=== PATIENT | male | born 1955 | race Caucasian/White ===

== ENCOUNTER 2020-12-07 11:22 | Observation (INO) | payer OTHER, SELFPAY ==
[2020-12-07] VITALS (11 sets, daily range): BP systolic 116–166; BP diastolic 59–89; PULSE 65–85; RESP 12–18; TEMP 36.2–37; O2SAT 95–100; BMI 29.4
--- NOTE | ~2020-12-07 | XR_ITS ---
EXAMINATION: XR retrograde pyelo w/stent RT DATE: 12/07/2020 18:26 INDICATION: Right flank pain TECHNIQUE: 5 fluoroscopic images of the abdomen and pelvis were obtained during procedure performed palmira Phillip. Radiologist was not present for the imaging or procedure. The amount of fluoroscopy ti me used during this procedure was 0.3 minutes. COMPARISON: None. FINDINGS: Electronics Computer Mechanic images demonstrate a large amount of stool in the proximal colon. The reported right ureteral s tone is unable to be definitively identified. Subsequent images demonstrate retrograde contrast injec tions into the right ureter. Subsequent images demonstrate placement of a right internal ureteral sarthak nt with loops formed in the bladder and right renal pelvis. IMPRESSION: 1. Fluoroscopy utilized during reported right ureteral stone extraction with subsequent placement of a right internal ureteral stent which is in expected position. See procedure note for further detail. Reviewed, dictated and finalized at location A. IMPRESSION: 1. Fluoroscopy utilized during reported right ureteral stone extraction with paige bsequent placement of a right internal ureteral stent which is in expected posi tion. See procedure note for further detail.
--- NOTE | 2020-12-07 11:33 | ADMGEN ---
This patient, Yamil Schneider, was admitted to [facility] Surg Room 327-01. Patient/family oriented to hospital policies and general routines including ID bracelet, bed and alarms, visiting hours, pain management, procedures, bathroom and other care routines, personal items, smoking policy, room service/diet, and visiting hours. Information on how to activate the Rapid Response Team has been discussed. Patient/Family are encouraged to report perceived risks to care and to ask questions if they do not understand what they are told or what they should do.
--- NOTE | 2020-12-07 13:10 | PM.IMHP ---
H&P: HPI History of Present Illness Date/Time: 12/07/20 13:10 This is a 64-year-old gentleman with history of kidney stones. He passed a stone a stone about 20 years ago. He had acute onset right flank pain on Monday. This to come to the emergency room where he was diagnosed with a 3 mm distal right ureteral stone. He was sent home on pain medication as well as Keflex. He failed a conservative trial of stone passage. He re-presented to the ER this morning. Again a CT scan shows a 3 mm right distal ureteral stone. He was transferred to [place] for further evaluation and management. He denies any blood in the urine. Denies any dysuria. He endorses nausea without vomiting. Chief Complaint: Right ureteral stone Review of Systems Review of Systems: All systems reviewed & are unremarkable except as noted in HPI and below PMFSH Past Medical History Medical History (Updated 12/07/20 @ 13:17 by Pawan Phillip MD) Essential (primary) hypertension History of asthma History of pulmonary embolism PE (pulmonary thromboembolism) Surgical History Surgical History (Updated 12/07/20 @ 13:12 by Pawan Phillip MD) History of Rio fundoplication Family History Family History (Updated 05/17/16 @ 10:01 by DOCTOR UNKNOWN) Father Hypertension Family history of cardiovascular disease Sibling Hypertension Family history of diabetes mellitus in first degree relative Diabetes mellitus Grandparent Carcinoma of colon Family history of malignant neoplasm Mother Family history of elevated blood lipids Family history of chronic obstructive pulmonary disease Other Family history of allergic disorder Social History Social History Smoking status: Former smoker Tobacco type: cigars Second hand tobacco smoke exposure: No Smoking end date: 07/03/13 Alcohol intake: current Drinks per week: 1 Substance use: never Spiritual care concerns: No Meds Home Medications and Allergies Home Medications Medication Instructions Recorded Confirmed Type albuterol sulfate 90 mcg/actuation See Rx Instructions .ROUTE 06/08/20 12/07/20 Rx aerosol inhaler .COMPLEX 90 Days #54 g finasteride 5 mg tablet 5 mg PO DAILY 90 Days #90 tablet 06/08/20 12/07/20 Rx montelukast 10 mg tablet 10 mg PO QPM 90 Days #90 tablet 06/08/20 12/07/20 Rx omeprazole 40 mg capsule,delayed 40 mg PO BID 90 Days #180 cap 06/08/20 12/07/20 Rx release ondansetron 4 mg disintegrating 4 mg TRANSLINGUAL TID PRN #360 06/08/20 12/07/20 Rx tablet tablet quinapril 10 mg tablet 10 mg PO DAILY 90 Days #90 tablet 06/08/20 12/07/20 Rx tamsulosin 0.4 mg capsule 0.4 mg PO DAILY 90 Days #90 cap 06/08/20 12/07/20 Rx ezetimibe 10 mg tablet 10 mg PO DAILY 90 Days #90 tablet 09/30/20 12/07/20 Rx budesonide-formoterol 2 puff INHALATION BID PRN 12/07/20 12/07/20 History Allergies Allergy/AdvReac Type Severity Reaction Status Date / Time meperidine Allergy Unknown Anaphylactic Verified 09/30/20 11:32 Shock Einlkat-Kqg-Xql Reductase AdvReac Intermediate Muscle Pain Verified 12/07/20 11:49 Inhibitor codeine AdvReac Unknown Itching Verified 09/30/20 11:32 Exam Const: General: cooperative and healthy appearing HENMT: Head: normal to inspection General nose exam: Normal external nose present Face and sinus: normal facial exam Mouth: Yes Normal oral and palatal mucosa present Eyes: General: appearance normal, both eyes and all related structures Neck: Neck: normal visual inspection Resp: Effort & Inspection: normal respiratory effort, able to speak in complete sentences and no grunting GI: Inspection: normal to inspection Skin: General skin exam: normal color and no rashes or lesions noted Neuro: General: patient oriented x3 Extrem: General: normal to inspection Psych: Appearance: grossly normal H&P: Results Labs Labs: I have a CT scan report which shows moderate right hydronephrosis with a stone in the right d
--- NOTE | 2020-12-07 14:05 | WPDANESEPPF ---
Anes - Initial Pre Proc Eval Procedure: Operation Date: 12/07/20 16:00 Proposed Procedures p Cystoscopy,Right Ureteroscopy,Right Retrograde Pyelogram,Right Stone Extraction,Possible Stent Placement - Pawan Phillip MD Date/Time: 12/07/20 14:05 Surgeon: Pawan Phillip MD Pre Op Diagnosis: Kidney stones Patient Data Age: 64 Gender: M Height: 1.78 m Weight: 93 kg Allergies Allergy/AdvReac Type Severity Reaction Status Date / Time meperidine Allergy Unknown Anaphylactic Verified 09/30/20 11:32 Shock Hfezvop-Fob-Uzx Reductase AdvReac Intermediate Muscle Pain Verified 12/07/20 11:49 Inhibitor codeine AdvReac Unknown Itching Verified 09/30/20 11:32 Home Medications Medication Instructions Recorded Confirmed Type albuterol sulfate 90 mcg/actuation See Rx Instructions .ROUTE 06/08/20 12/07/20 Rx aerosol inhaler .COMPLEX 90 Days #54 g finasteride 5 mg tablet 5 mg PO DAILY 90 Days #90 tablet 06/08/20 12/07/20 Rx montelukast 10 mg tablet 10 mg PO QPM 90 Days #90 tablet 06/08/20 12/07/20 Rx omeprazole 40 mg capsule,delayed 40 mg PO BID 90 Days #180 cap 06/08/20 12/07/20 Rx release ondansetron 4 mg disintegrating 4 mg TRANSLINGUAL TID PRN #360 06/08/20 12/07/20 Rx tablet tablet quinapril 10 mg tablet 10 mg PO DAILY 90 Days #90 tablet 06/08/20 12/07/20 Rx tamsulosin 0.4 mg capsule 0.4 mg PO DAILY 90 Days #90 cap 06/08/20 12/07/20 Rx ezetimibe 10 mg tablet 10 mg PO DAILY 90 Days #90 tablet 09/30/20 12/07/20 Rx budesonide-formoterol 2 puff INHALATION BID PRN 12/07/20 12/07/20 History cephalexin 500 mg PO BID 12/07/20 12/07/20 History Patient hx anesthesia problems: none Family hx anesthesia problems: none PMFSH Past Medical History Medical History (Updated 12/07/20 @ 14:23 by Nimco Wan NP) 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 Saddle PE Surgical History Surgical History (Updated 12/07/20 @ 14:24 by Nimco Wan NP) H/O hernia repair Bilateral H/O medial meniscus repair of left knee H/O medial meniscus repair of right knee H/O shoulder surgery Left clavicle surgery. And right rotator cuff repair History of Rio fundoplication Secondary to Milton's esophagus History of tonsillectomy S/P medial meniscal repair Family History Family History Father Hypertension Family history of cardiovascular disease Sibling Hypertension Family history of diabetes mellitus in first degree relative Diabetes mellitus Grandparent Carcinoma of colon Family history of malignant neoplasm Mother Family history of elevated blood lipids Family history of chronic obstructive pulmonary disease Other Family history of allergic disorder Social History Social History (Updated 12/07/20 @ 14:25 by Nimco Wan NP) Social History: 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 He is and his is the durable power state attorney for healthcare. The patient has 1 son. The patient used to smoke cigars but quit many years ago. No alcohol marijuana or illicit drugs. The patient desires to be a full code. Smoking status: Former smoker Tobacco type: cigars Second hand tobacco smoke exposure: No Smoking end date: 07/03/13 Alcohol intake: current Drinks per week: 1
--- NOTE | 2020-12-07 14:07 | PM.IMHP ---
H&P: HPI History of Present Illness Date/Time: 12/07/20 14:07 this is 64-year-old male patient who lives with his . The patient has a past medical history having kidney stones that he passed on his own approximately 20-25 years ago. He has not had any problems with kidney stones since. The patient stated that he was camping over the weekend and developed some right flank pain and he went to [facility]. Who is told that he had a kidney stone and and he was given the choice of staying or leading. The patient stated that he was given Toradol at that hospital felt well enough to leave. Looks like the patient may have been given Keflex upon discharge. The patient was able to drive his RV home and he may at home I am did well through the night but then this morning he woke up with some right flank pain. The patient decided to go to [facility] in [place] as it is only a few minutes from his home. Patient also had some nausea and some dry heaves but no vomiting. The patient had a CT of his abdomen at [facility] which was read as moderate right hydronephrosis due to persistent stone in the right ureter measuring 3 mm. There is moderate colonic diverticulosis but no diverticulitis. Mild distal esophageal wall thickening with fluid in the esophagus. Evidence of previous fundoplication. The patient was given a small amount of Toradol, morphine, Dilaudid, and IV fluids at [facility] in [place]. Dr. Burns called report to Dr. Kramer today to transfer the patient to [facility]. Dr. Phillip had been consulted and has already seen the patient. The plan is for the patient to possibly have a cystoscopy in a placed at [facility] today. The patient appears to be comfortable at this time. Urine was negative except for 3+ blood in his urine. A culture was not indicated at that time. Creatinine was listed as 1.86 at [facility]. H&H is 13.1 and 38.1 at [facility]. The patient is being admitted to observation status on the date of service of 12/07/2020. Chief Complaint: Right flank pain Review of Systems Review of Systems: All systems reviewed & are unremarkable except as noted in HPI and below Constitutional: Constitutional: Reports as per HPI and Reports no additional constitutional complaints Eyes: Eyes: Reports as per HPI and Reports no additional eye complaints ENT: Reports system reviewed and no additional complaints, except as documented and Reports Normal hearing present Cardiovascular: Cardiovascular: Reports no additional cardiovascular complaints Respiratory: Respiratory: Reports no additional respiratory complaints and Reports no additional respiratory complaints Gastrointestinal: Gastrointestinal: Reports as per HPI and Reports no additional gastrointestinal complaints Musculoskeletal: Musculoskeletal: Reports no additional musculoskeletal complaints Integumentary/Breasts: Skin/Breast: Reports system reviewed and no additional complaints, except as docu and Reports as per HPI Neurologic: Reports system reviewed and no additional complaints, except as documented, Reports as per HPI and Reports Normal hearing present Psychiatric: Psychiatric: Reports no additional psychiatric complaints and Reports as per HPI Endocrine: Endocrine: Reports no additional endocrine complaints Hematologic/Lymphatic: Hematologic/Lymphatic: Reports no additional hematologic/lymphatic complaints Allergic/Immunologic: Allergic/Immunologic: Reports no additional allergic/immunologic complaints [facility] Past Medical History Medical History (Updated 12/07/20 @ 14:23 by Nimco Wan NP) Arthritis of right shoulder region Milton's esophagus with dysplasia, unspecified Benign prostatic hyperplasia with urinary retention Calculus of distal ureter Chronic allergic rhinitis Complex regional pain syndrome type II of right lower limb Essential (primary) hypertension History of asthma History of pulmonary emboli
[2020-12-07 14:45] LABS: Alanine Aminotransferase 17 U/L (4-50); Albumin Level 3.9 g/dL (3.5-5.1); Alkaline Phosphatase 57 U/L (38-126); Anion Gap 10 mmol/L (8-16); Aspartate Amino Transferase 23 U/L (17-59); Bilirubin,Total 1.4 mg/dL (0.2-1.3); Blood Urea Nitrogen 21 mg/dL (9-20); Calcium 9.2 mg/dL (8.4-10.2); Carbon Dioxide 25 mmol/L (22-30); Chloride 107 mmol/L (98-107); Estimated CRCL calculation 38 ml/min; Estimated Glomerular Filt Rate 38; Glucose 94 mg/dL (75-110); Magnesium 1.8 mg/dL (1.6-2.3); Potassium 4.4 mmol/L (3.4-5.0); Sodium 142 mmol/L (137-145)
[2020-12-07] MEDS: LACTATED RINGERS 1,000 ML 30 ML IV CONT (15:47)
--- NOTE | 2020-12-07 16:12 | ECG_ITS ---
Measurements Intervals Smoot Rate: 65 P: 58 HI: 173 QRS: 4 QRSD: 107 T: 33 QT: 363 QTc: 378 Interpretive Statements SINUS RHYTHM INCOMPLETE RIGHT BUNDLE BRANCH BLOCK BASELINE ARTIFACT- V4 BORDERLINE ECG Electronically Signed On 12-07-2020 21:09:15 CDT by Pedro Pablo Dai D.O.
--- NOTE | 2020-12-07 17:41 | WPDHPUPDATE1 ---
History and Physical Update Update Date/Time: 12/07/20 17:41 History and Physical has been reviewed, including an updated exam of the patient. There are NO changes in the patient's condition. Risks, benefits, and alternatives have been discussed and questions answered. Patient agrees to proceed with procedure.
[2020-12-07] MEDS: LIDOCAINE HCL 2% GEL UROJET 10 ML PKG MUCOUS MEM (17:53)
[2020-12-07] MEDS: ceFAZolin SODIUM 1 GM VIAL 2 GM IV PUSH (18:04)
--- NOTE | 2020-12-07 18:22 | W.PM.PROC2 ---
Procedure Note - Detailed Date of Procedure 12/07/20 Pre-op Diagnosis Right ureteral stone Post-op Diagnosis same (Right ureteral stone, bladder stones) Procedure Performed Cystoscopy, irrigation of bladder stones, right ureteroscopy, stone extraction, stent placement Surgeon Pawan Phillip MD Anesthesia general Indications Right distal ureteral stone that has failed a trial of conservative stone passage Findings Distal ureteral stone Description of Procedure He has correctly identified. Informed consent obtained. From the operating room. He was given general anesthesia. He is prepped and draped in a sterile fashion. Time-out performed. He was given appropriate perioperative antibiotics. Cystoscopy revealed a very enlarged prostate. He had moderate trabeculations. He had many small bladder stones in his bladder. These were irrigated out. I located the right ureteral orifice. I placed a guidewire to the kidney. I dilated the ureter with the 810 dilator. I performed ureteroscopy. It was somewhat difficult to negotiate over his prostate. I created a small false passage in the distal ureter. I found ureter proper and is able to get up to the ureteral stone. I used the basket to extract the ureteral stone intact. I then did a retrograde pyelogram. There is no extravasation from the ureter. There was good filling of the renal pelvis. I placed a 4.8 variable length stent. Proximal coil the kidney. Distal coil the bladder. The bladder was drained. He was awakened transferred to PACU in stable condition. Implants For perineal extent Estimated Blood Loss 5 Drains No Packing No Pathology yes (Ureteral stone) Complications No immediate complications Condition stable Disposition PACU
[2020-12-07] MEDS: PANTOPRAZOLE 40 MG TABLET PO (19:35)
[2020-12-07] MEDS: MONTELUKAST SODIUM 10 MG TABLET PO (19:35)
[2020-12-07] MEDS: ACETAMINOPHEN 325 MG TABLET 650 MG PO (21:25)
[2020-12-08] VITALS: BP 139/67; PULSE 72; RESP 18; TEMP 36.6; O2SAT 97
[2020-12-08] MEDS: TAMSULOSIN HCL 0.4 MG CAPSULE PO (02:01)
[2020-12-08] MEDS: FINASTERIDE 5 MG TABLET PO (02:03)
[2020-12-08 04:00] VITALS: BP 104/65; PULSE 62; RESP 18; TEMP 36.1; O2SAT 98
[2020-12-08 06:07] LABS: Basophils Percent Auto 0.2 % (0.2-1.2); Eosinophils Percent Auto 0.1 % (0-4.4); Hematocrit 33.3 % (42.0-52.0); Hemoglobin 11.2 g/dL (14.0-18.0); Immature Granulocyte Absolute 0.02 K/mm3 (0.00-0.031); Immature Granulocyte Percent A 0.2 % (0-0.5); Lymphocytes Absolute Auto 0.83 K/mm3 (0.9-3.2); Lymphocytes Percent Auto 10.1 % (18.3-44.2); Mean Corpuscular HGB Conc 33.6 g/dl (32-36); Mean Corpuscular Hemoglobin 30.6 pg (26-34); Mean Platelet Volume 10.3 fl (7.4-10.4); Monocytes Absolute Auto 0.7 K/mm3 (0.1-0.6); Monocytes Percent Auto 8.3 % (2.6-8.5); Neutrophils Absolute Auto 6.6 K/mm3 (1.3-6.7); Neutrophils Percent Auto 81.1 % (45.5-73.1); Platelet Count Result 165 k/mm3 (150-375); Red Blood Count 3.66 M/mm3 (4.6-6.20); White Blood Count 8.2 K/mm3 (4.5-10.0)
[2020-12-08 06:15] LABS: Lactic Acid Reflex 1.3 mmol/L (0.7-2.1)
[2020-12-08 06:16] LABS: Alanine Aminotransferase 17 U/L (4-50); Albumin Level 3.5 g/dL (3.5-5.1); Alkaline Phosphatase 59 U/L (38-126); Anion Gap 7 mmol/L (8-16); Aspartate Amino Transferase 22 U/L (17-59); Bilirubin,Total 0.7 mg/dL (0.2-1.3); Blood Urea Nitrogen 22 mg/dL (9-20); Calcium 8.9 mg/dL (8.4-10.2); Carbon Dioxide 24 mmol/L (22-30); Chloride 108 mmol/L (98-107); Estimated CRCL calculation 61 ml/min; Estimated Glomerular Filt Rate > 60; Glucose 168 mg/dL (75-110); Potassium 4.7 mmol/L (3.4-5.0); Sodium 139 mmol/L (137-145)
--- NOTE | 2020-12-08 06:51 | WPDUROPN2 ---
Progress Note: A&P Assessment and Plan (1) Nephrolithiasis: Code(s): N20.0 - Calculus of kidney Status: Acute (2) Obstructive uropathy: Code(s): N13.9 - Obstructive and reflux uropathy, unspecified Status: Acute Assessment and Plan: Feeling better and tolerating stent reasonably well. Discharge this morning. Subjective Subjective Date/Time Seen: 12/08/20 06:51 Comfortable, tolerating ureteral stent and hematuria clearing Review of Systems Cardiovascular: Cardiovascular: Denies chest pain, Denies lightheadedness, Denies palpitations and Denies dyspnea Respiratory: Respiratory: Denies dyspnea Gastrointestinal: Gastrointestinal: Denies diarrhea, Denies nausea and Denies vomiting Genitourinary: Genitourinary: Denies hematuria and Denies dysuria Endocrine: Endocrine: Denies palpitations Exam Const: General: no acute distress Resp: Effort & Inspection: normal respiratory effort GI: Inspection: non-distended GI Palp: No abdominal tenderness and No Guarding due to palpation present (GI) Auscultation: normal bowel sounds Objective Data Vital Signs Vital Signs: Vital Signs - 24 hr 12/07/20 14:00 12/07/20 15:36 12/07/20 18:26 Temperature 97.7 F 98.1 F 97.9 F Pulse Rate 66 65 66 Respiratory Rate 16 12 13 Blood Pressure 124/81 134/88 116/80 Pulse Oximetry 97 99 100 12/07/20 18:30 12/07/20 18:45 12/07/20 19:00 Temperature Pulse Rate 70 74 75 Respiratory Rate 16 18 16 Blood Pressure 131/79 138/89 133/84 Pulse Oximetry 100 100 97 12/07/20 19:06 12/07/20 19:20 12/07/20 19:35 Temperature 97.5 F L 98.6 F Pulse Rate 69 81 74 Respiratory Rate 12 18 18 Blood Pressure 139/88 166/81 H 136/82 Pulse Oximetry 96 98 96 12/07/20 21:05 12/07/20 22:05 12/08/20 00:00 Temperature 97.2 F L 97.7 F 97.8 F Pulse Rate 70 85 72 Respiratory Rate 18 18 18 Blood Pressure 138/80 138/59 L 139/67 Pulse Oximetry 98 95 97 12/08/20 04:00 Temperature 97 F L Pulse Rate 62 Respiratory Rate 18 Blood Pressure 104/65 Pulse Oximetry 98 Intake/Output Intake/Output: Intake & Output 12/05/20 12/06/20 12/07/20 12/08/20 23:59 23:59 23:59 23:59 Intake Total 50 200 Balance 50 200 Meds/Results Medications: Active Medications Generic Name Dose Route Start Last Admin Trade Name Freq PRN Reason Stop Dose Admin Acetaminophen 650 mg 12/07/20 20:15 12/07/20 21:25 Acetaminophen 325 Mg Tablet PO 650 mg Q4H PRN Administration Mild Pain (1-3) or Fever Hydrocodone Bitart/Acetaminophen 1 tab 12/07/20 19:08 Hydrocodone/Acetaminophen (*Crx) 5-325 Mg Tablet PO Q4H PRN Pain Rated 4-6 Albuterol 2 puff 12/07/20 19:08 Albuterol Sulfate (*Sp) Aerosol 1 Puff INHALATION Q4H PRN SHORTNESS OF BREATH Budesonide/Formoterol Fumarate 2 puff 12/07/20 19:08 Budesonide/Form 80-4.5 Mcg (*Sp) INHALATION BID PRN Allergy Symptoms Cephalexin HCl 500 mg 12/08/20 09:00 Cephalexin 500 Mg Capsule PO BID [facility] Ezetimibe 10 mg 12/08/20 09:00 Ezetimibe 10 Mg Tablet PO DAILY [facility] Finasteride 5 mg 12/08/20 21:00 Finasteride 5 Mg Tablet PO HS [facility] Lisinopril 10 mg 12/08/20 09:00 Lisinopril 10 Mg Tablet PO DAILY [facility] Montelukast Sodium 10 mg 12/07/20 19:15 12/07/20 19:35 Montelukast Sodium 10 Mg Tablet PO 10 mg QPM NAY Administration Ondansetron HCl 4 mg 12/07/20 19:08 Ondansetron Hcl Odt 4 Mg Tablet PO TID PRN nausea and vomiting Pantoprazole Sodium 40 mg 12/07/20 19:15 12/07/20 19:35 Pantoprazole 40 Mg Tablet PO 40 mg BID NAY Administration Tamsulosin HCl 0.4 mg 12/08/20 21:00 Tamsulosin Hcl 0.4 Mg Capsule PO HS [facility] Radiology Results: ITS Impressions Retrograde Pyelogram 12/07/20 23:56 IMPRESSION: 1. Fluoroscopy utilized during reported right ureteral stone extraction with subsequent placement of a right internal ureteral stent which is i
[2020-12-08 08:00] VITALS: BP 136/79; PULSE 66; RESP 18; TEMP 36.6; O2SAT 97
[2020-12-08] MEDS: CEPHALEXIN 500 MG CAPSULE PO (08:12)
[2020-12-08] MEDS: EZETIMIBE 10 MG TABLET PO (08:12)
[2020-12-08] MEDS: lisinopriL 10 MG TABLET PO (08:12)
[2020-12-08] MEDS: PANTOPRAZOLE 40 MG TABLET PO (08:12)
[2020-12-08] MEDS: ACETAMINOPHEN 325 MG TABLET 650 MG PO (08:20)
--- NOTE | 2020-12-08 10:18 | PM.DS ---
DS: Admitting Diagnosis Admitting Diagnosis Admitting Diagnosis: Flank pain DS: Discharge Diagnosis Discharge Diagnosis (1) Obstructive uropathy: Code(s): N13.9 - Obstructive and reflux uropathy, unspecified Status: Acute (2) Essential (primary) hypertension: Code(s): I10 - Essential (primary) hypertension Status: Chronic (3) Calculus of distal ureter: Code(s): N20.1 - Calculus of ureter Status: Acute (4) LYDIA (obstructive sleep apnea): Code(s): G47.33 - Obstructive sleep apnea (adult) (pediatric) Status: Acute (5) Benign prostatic hyperplasia with urinary retention: Code(s): N40.1 - Benign prostatic hyperplasia with lower urinary tract symptoms; R33.8 - Other retention of urine Status: Acute (6) Milton's esophagus with dysplasia, unspecified: Code(s): K22.719 - Milton's esophagus with dysplasia, unspecified Status: Acute (7) Mixed hyperlipidemia: Code(s): E78.2 - Mixed hyperlipidemia Status: Chronic (8) Statin intolerance: Code(s): Z78.9 - Other specified health status Status: Acute (9) Acute kidney injury: Code(s): N17.9 - Acute kidney failure, unspecified Status: Acute DS: Summary Hospital Course Reason for hospitalization: The patient is a 64-year-old man with a history of kidney stones in the past, hypertension, who presented to our facility from [facility] Emergency Room for are urology services after being found to have moderate right hydronephrosis due to a persistent stone in the right ureter measuring 3 mm. Patient's symptoms began on Monday and he was seen in [facility] in [facility] while he was down there camping this weekend. He was given Toradol in their ER and felt better and left to continue PO Keflex. Patients symptoms became worse and decided to come back to the ER for further evaluation. Upon arrival to [place] he was taken to the OR by Dr. Phillip for right distal ureteral stone Cystoscopy, irrigation of bladder stones, right ureteroscopy, stone extraction, stent placement. The patient tolerated the procedure well, but stayed overnight for pain control and to recheck renal function in the AM. Cr improved from 1.8 to 1.1 within normal range. Pain doing well. Stable for discharge per urology to continue Keflex antibiotics and follow up with Urology 7-10 days. The patient understands and agrees with the plan. All questions answered. Hospital Course: See above Status at Discharge Cognitive/behavioral status at discharge: Stable, improved. Time Spent with Patient Time attestation: Total time spent providing and/or coordinating discharge services: 37 Time spent: Greater than 30 minutes Exam Narrative: Exam Narrative: General: 64-year-old man sitting on the couch reading the paper. Appears comfortable. In no acute distress. Skin: No jaundice or cyanosis. Good skin turgor. Neck: Full range of motion. Supple. Respiratory: Lungs are clear to auscultation bilaterally. No bony chest wall tenderness. Cardiovascular: The heart has a regular rate and rhythm without murmur. Lower extremities: No lower extremity edema. Distal pulses are easily palpated. No calf tenderness to palpation. Gastrointestinal: The abdomen is soft, nontender and nondistended with active bowel sounds. Psychiatric: Lucid and oriented. Memory intact. Neurologic: No focal deficits. Speech is clear. No facial drooping. DS: Data Data Completed and Pending Pending studies at discharge: Pending at discharge 12/07/20 18:15 Surgical [PTH] Routine Labs on day of discharge: Labs from last 24 hours 12/08/20 12/08/20 12/08/20 05:56 05:56 05:55 WBC 8.2 RBC 3.66 L Hgb 11.2 L Hct 33.3 L MCV 91.0 MCH 30.6 MCHC 33.6 RDW 14.0 Plt Count 165 MPV 10.3 Immature Gran % (Auto) 0.2 Neut % (Auto) 81.1 H Lymph % (Auto) 10.1 L Glasc[place] % (Auto) 8.3 Eos % (A
--- NOTE | 2020-12-08 10:46 | WPDANESPN ---
Anes - Prog Note Post-Op Date/Time: 12/08/20 10:46 Cardiovascular status: normal Respiratory status: normal Airway patency: baseline Mental status: baseline Post-Op hydration status: normal Vital Signs: Last Vital Signs Temp 36.1 C L 12/08/20 04:00 Pulse 62 12/08/20 04:00 Resp 18 12/08/20 04:00 BP 104/65 12/08/20 04:00 Pulse Ox 98 12/08/20 04:00 Pain Score (VAS): 0/10. Patient resting up to bedside chair at time of assessment, appears comfortable. PCT at bedside. I/O: Intake & Output 12/07/20 12/08/20 12/08/20 23:59 07:59 15:59 Intake Total 50 200 Balance 50 200 Laboratory Tests 12/08/20 05:56 12/08/20 05:56 12/07/20 12/07/20 12/08/20 14:26 14:26 05:55 WBC RBC Hgb Hct MCV MCH MCHC RDW Plt Count MPV Immature Gran % (Auto) Neut % (Auto) Lymph % (Auto) [place] % (Auto) Eos % (Auto) Baso % (Auto) Lymph # (Auto) [place] # (Auto) Eos # (Auto) Baso # (Auto) Abs Immat Gran (auto) Absolute Neuts (auto) Absolute Nucleated RBC Nucleated RBC % Sodium 142 Potassium 4.4 Chloride 107 Carbon Dioxide 25 Anion Gap 10 BUN 21 H Creatinine 1.80 H Estim Creat Clear Calc 38 Estimated GFR 38 L Glucose 94 Lactic Acid 1.0 1.3 Calcium 9.2 Magnesium 1.8 Total Bilirubin 1.4 H AST 23 ALT 17 Alkaline Phosphatase 57 Total Protein 7.0 Albumin 3.9 12/08/20 12/08/20 05:56 05:56 WBC 8.2 RBC 3.66 L Hgb 11.2 L Hct 33.3 L MCV 91.0 MCH 30.6 MCHC 33.6 RDW 14.0 Plt Count 165 MPV 10.3 Immature Gran % (Auto) 0.2 Neut % (Auto) 81.1 H Lymph % (Auto) 10.1 L [place] % (Auto) 8.3 Eos % (Auto) 0.1 Baso % (Auto) 0.2 Lymph # (Auto) 0.83 L [place] # (Auto) 0.7 H Eos # (Auto) 0.0 Baso # (Auto) 0.0 Abs Immat Gran (auto) 0.02 Absolute Neuts (auto) 6.6 Absolute Nucleated RBC 0.0 Nucleated RBC % 0.0 Sodium 139 Potassium 4.7 Chloride 108 H Carbon Dioxide 24 Anion Gap 7 L BUN 22 H Creatinine 1.10 Estim Creat Clear Calc 61 Estimated GFR > 60 Glucose 168 H Lactic Acid Calcium 8.9 Magnesium 2.0 Total Bilirubin 0.7 AST 22 ALT 17 Alkaline Phosphatase 59 Total Protein 6.0 L Albumin 3.5 Post-procedural complaints: none Patient Feedback: Patient satisfied with anesthetic care.
--- NOTE | 2020-12-15 08:58 | PC.NURSE ---
Blood cx are negative.
== END 2020-12-08 12:12 | disposition home or self-care (01) ==
PROVIDERS: Nurse Practitioner; Urology; Admitting Provider Family Medicine; PCP Internal Medicine; Visit Provider Physician Assistant
PROC: (CPT 52352; principal; 2020-12-07 16:00)
DX: N13.9 Obstructive and reflux uropathy, unspecified (principal); N13.2 Hydronephrosis with renal and ureteral calculous obstruction; N17.9 Acute kidney failure, unspecified; I11.9 Hypertensive heart disease without heart failure; E78.2 Mixed hyperlipidemia; N40.1 Benign prostatic hyperplasia with lower urinary tract symptoms; R33.8 Other retention of urine; G56.41 Causalgia of right upper limb; G47.33 Obstructive sleep apnea (adult) (pediatric); K22.719 Barrett's esophagus with dysplasia, unspecified; J45.20 Mild intermittent asthma, uncomplicated; Z86.711 Personal history of pulmonary embolism; Z87.891 Personal history of nicotine dependence; Z79.51 Long term (current) use of inhaled steroids
CPT/HCPCS: 52332; 52352; 36415; 74420; 80053; 82365; 83605; 83735; 85025; 87040; 88300; 93005; 96360; 96361; A9270; C1769; C2617; G0378; G0379; J0690; J1100; J2405; J2704; J7120; Q9966

== ENCOUNTER 2021-01-11 04:56 | Observation (INO) | payer OTHER, SELFPAY ==
[2021-01-11] VITALS (14 sets, daily range): BP systolic 121–160; BP diastolic 61–101; PULSE 54–82; RESP 13–18; TEMP 36.2–36.9; O2SAT 96–100
--- NOTE | ~2021-01-11 | CT_ITS ---
EXAMINATION: CT abdomen pelvis w con DATE: 01/11/2021 06:09 INDICATION: Abdominal pain TECHNIQUE: Computed tomography (CT) of the abdomen and pelvis was performed with 100 mL Omnipaque-350 intravenous contrast. Automated exposure control and iterative reconstruction technique were employe d. The dose-length product was 836.03 mGy-cm. COMPARISON: 05/04/2016 FINDINGS: Minimal atelectasis/scarring the left lower lobe. Heart size is normal. Atherosclerotic coronary mary jane ry calcific location. No pericardial or pleural effusion. Postoperative change of prior Rio fundop lication. Edematous gallbladder wall thickening versus small amount of pericholecystic fluid concerni ng for acute cholecystitis. Liver, pancreas, spleen and bilateral adrenal glands are normal. Bilatera l renal cysts, the largest on the left measuring up to 2.0 cm. No interval change in an 8 mm exophyti c hyperdense proteinaceous/hemorrhagic left renal cyst. There is moderate colonic diverticulosis with a sigmoid predominance. There is no adjacent inflammatory change to suggest diverticulitis. Small b owel and appendix are normal. Prostatomegaly. Postoperative change of interval bilateral inguinal her kelvin repairs. No free intraperitoneal gas or fluid. No pathologically enlarged abdominal or pelvic lym phadenopathy. There is calcified atherosclerosis of the aorta and many of the other arteries. Mild caitlyn mbar dextrocurvature with moderate spondylosis. IMPRESSION: 1. Gallbladder wall thickening and/or small amount pericholecystic fluid suspicious for acute cholecy stitis. Correlate for Thomas sign and could consider further evaluation with either HIDA scan or righ t upper quadrant ultrasound. 2. Diverticulosis. 3. Prostatomegaly. Reviewed, dictated and finalized at location A. IMPRESSION: 1. Gallbladder wall thickening and/or small amount pericholecystic fluid suspic ious for acute cholecystitis. Correlate for Thomas sign and could consider furt her evaluation with either HIDA scan or right upper quadrant ultrasound. 2. Diverticulosis. 3. Prostatomegaly.
[2021-01-11 05:27] LABS: Basophils Percent Auto 0.4 % (0.2-1.2); Eosinophils Absolute Auto 0.1 K/mm3 (0-0.3); Eosinophils Percent Auto 0.5 % (0-4.4); Hematocrit 38.6 % (42.0-52.0); Hemoglobin 12.6 g/dL (14.0-18.0); Immature Granulocyte Absolute 0.05 K/mm3 (0.00-0.031); Immature Granulocyte Percent A 0.5 % (0-0.5); Lymphocytes Absolute Auto 1.39 K/mm3 (0.9-3.2); Lymphocytes Percent Auto 12.7 % (18.3-44.2); Mean Corpuscular HGB Conc 32.6 g/dl (32-36); Mean Corpuscular Hemoglobin 29.9 pg (26-34); Mean Corpuscular Volume 91.5 fl (80-100); Mean Platelet Volume 10.3 fl (7.4-10.4); Monocytes Absolute Auto 0.9 K/mm3 (0.1-0.6); Neutrophils Absolute Auto 8.6 K/mm3 (1.3-6.7); Neutrophils Percent Auto 77.9 % (45.5-73.1); Platelet Count Result 148 k/mm3 (150-375); Red Blood Count 4.22 M/mm3 (4.6-6.20); Red Cell Distribution Width 14.4 % (11.5-14.5)
--- NOTE | 2021-01-11 05:32 | ED.GENADULT ---
HPI - General Adult General Chief complaint: Abdominal Pain Stated complaint: RUQ/ back pain Time Seen by Provider: 01/11/21 05:14 Source: RN notes reviewed History of Present Illness HPI narrative: Patient presents to emergency department from home for right flank abdominal pain. Patient states pain began last night pain is located initially in the right flank rating around into the right upper quadrant described as achy in nature states is associated with nausea the patient did take Vicodin at home as well as Zofran with minimal relief he denies any fevers or chills, chest pain, shortness of breath vomiting or diarrhea Related Data Home Medications Medication Instructions Recorded Confirmed budesonide-formoterol 2 puff INHALATION BID PRN 12/07/20 12/07/20 Allergies Allergy/AdvReac Type Severity Reaction Status Date / Time meperidine Allergy Unknown Anaphylactic Verified 01/11/21 05:07 Shock Nxfkrtq-Ewk-Stv Reductase AdvReac Intermediate Muscle Pain Verified 01/11/21 05:07 Inhibitor codeine AdvReac Unknown Itching Verified 01/11/21 05:07 Review of Systems Review of Systems: Narrative: Gen.: Denies fevers or chills ENT: Denies congestion Respiratory: Denies shortness of breath or cough CV: Denies chest pain or palpitations GI: See HPI denies burning, urgency, frequency or hematuria Musculoskeletal: Denies back pain or muscle pain Neuro: Denies numbness, tingling, weakness or focal weakness Skin: Denies rash Except as documented, all other systems reviewed and negative PMFSH Past Medical History Medical History 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 Saddle PE Surgical History Surgical History (Updated 12/07/20 @ 14:24 by Nimco Wan NP) H/O hernia repair Bilateral H/O medial meniscus repair of left knee H/O medial meniscus repair of right knee H/O shoulder surgery Left clavicle surgery. 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 He is and his is the durable power criminal attorney for healthcare. The patient has 1 son. The patient used to smoke cigars but quit many years ago. No alcohol marijuana or illicit drugs. The patient desires to be a full code. Smoking status: Former smoker Tobacco type: cigars Second hand tobacco smoke exposure: No Smoking end date: 07/03/13 Alcohol intake: current Drinks per week: 1 Substance use: never Spiritual care concerns: No Exam Narrative: Exam Narrative: APPEARANCE: No acute distress, nontoxic, restin
[2021-01-11] MEDS: SODIUM CHLORIDE 0.9% IV 1,000 ML 999 ML IV CONT (05:34)
[2021-01-11] MEDS: KETOROLAC 30 MG/ML VIAL (*BKC) IV PUSH (05:35)
[2021-01-11 05:36] LABS: Alanine Aminotransferase 23 U/L (4-50); Albumin Level 3.9 g/dL (3.5-5.1); Alkaline Phosphatase 80 U/L (38-126); Anion Gap 8 mmol/L (8-16); Aspartate Amino Transferase 27 U/L (17-59); Bilirubin,Total 0.6 mg/dL (0.2-1.3); Blood Urea Nitrogen 18 mg/dL (9-20); Calcium 9.6 mg/dL (8.4-10.2); Carbon Dioxide 26 mmol/L (22-30); Chloride 103 mmol/L (98-107); Estimated Glomerular Filt Rate > 60; Glucose 126 mg/dL (75-110); Lipase 164 U/L (23-300); Sodium 137 mmol/L (137-145)
[2021-01-11 07:00] LABS: Add Urine Microscopic? YES; Appearance Urine Cloudy (Clear); Bacteria Urine Trace /hpf; Bilirubin Urine Negative (Negative); Blood Urine 2+ (Negative); Color Urine Yellow (Yellow); Glucose Urine UA Negative (Negative); Ketones Urine Negative (Negative); Leukocyte Esterase Ur Trace LEU/UL (Negative); Mucus Urine Rare /lpf; Nitrate Urine Negative (Negative); Protein Urine Negative (Negative); Squamous Epithelial Cell Urine Rare /hpf (Few); Urobilinogen Urine Negative mg/dL (<2.0)
[2021-01-11 07:01] LABS: Specific Grav Ur 1.041 (1.001-1.035)
--- NOTE | 2021-01-11 09:32 | PC.NURSE ---
This patient, Yamil Schneider, was admitted to [facility] Surg Room 330-01 on 01/11/21 @ 0930. Patient/family oriented to hospital policies and general routines including ID bracelet, bed and alarms, visiting hours, pain management, procedures, bathroom and other care routines, personal items, smoking policy, room service/diet, and visiting hours. Information on how to activate the Rapid Response Team has been discussed. Patient/Family are encouraged to report perceived risks to care and to ask questions if they do not understand what they are told or what they should do.
--- NOTE | 2021-01-11 10:05 | ECG_ITS ---
Measurements Intervals [place] Rate: 55 P: 41 UT: 179 QRS: 0 QRSD: 98 T: 16 QT: 379 QTc: 366 Interpretive Statements SINUS BRADYCARDIA INCOMPLETE RIGHT BUNDLE BRANCH BLOCK BASELINE ARTIFACT- I, II, III BORDERLINE ECG Electronically Signed On 01-11-2021 10:40:41 CDT by Pedro Pablo Dai D.O.
[2021-01-11] MEDS: SODIUM CHLORIDE 0.9% IV 1,000 ML 125 ML IV CONT (10:29)
--- NOTE | 2021-01-11 11:16 | PM.CNGS ---
Assessment and Plan Assessment and plan (1) Cholecystitis: Code(s): K81.9 - Cholecystitis, unspecified Status: Acute Assessment and Plan: I have reviewed the CT and discussed the findings with the patient. Surgical and medical treatment options were discussed in detail. Since this is an acute episode and is fairly early, I discussed with him that laparoscopic cholecystectomy is a reasonable treatment option and would allow for prevention of recurrent attacks or prolonged recovery. Long-term dietary changes can prevent attacks to a certain degree, but they are always chances of recurrent cholecystitis. Patient wishes to proceed with surgery. Will plan for laparoscopic cholecystectomy, possible open today. I discussed the procedure, risks, benefits, and alternatives. Questions were answered. (2) Essential (primary) hypertension: Code(s): I10 - Essential (primary) hypertension Status: Chronic (3) Overweight (BMI 25.0-29.9): Status: Acute (4) LYDIA (obstructive sleep apnea): Code(s): G47.33 - Obstructive sleep apnea (adult) (pediatric) Status: Acute (5) Benign prostatic hyperplasia with urinary retention: Code(s): N40.1 - Benign prostatic hyperplasia with lower urinary tract symptoms; R33.8 - Other retention of urine Status: Acute History of Present Illness Consult details Consult date: 01/11/21 Reason for consult: other (Cholecystitis) Requesting physician: Rudy Maldonado DO Narrative: this is a 65-year-old man who presented to the emergency department this morning with complaints right upper quadrant and right back pain started last night. His pain started as a dull ache in the right back but then progressed to more severe pain localized to the right upper quadrant. He had eating fried fish with mash potatoes and gravy for dinner. He states that this weekend he had also eating a lot more fried food including hamburger and onion rings. He states that he does not typically eat foods like this frequently and has never had any symptoms like this in past. In the emergency department he was found have an elevated white blood count but normal liver enzymes and pancreatic enzymes. CT of his abdomen and pelvis showed evidence of gallbladder wall thickening and pericholecystic fluid suspicious for acute cholecystitis. He was admitted for further treatment. He does have a history Rio fundoplication. He does not take any blood thinners. Review of Systems Review of Systems: All systems reviewed & are unremarkable except as noted in HPI and below Eyes: Eyes: Denies change in vision ENT: Denies hearing loss, Denies neck pain and Denies sore throat Cardiovascular: Cardiovascular: Denies chest pain and Denies dyspnea Respiratory: Respiratory: Denies cough, Denies dyspnea and Denies wheezing Genitourinary: Genitourinary: Denies hematuria and Denies dysuria Musculoskeletal: Musculoskeletal: Denies arthralgias, Denies joint swelling and Denies neck pain Allergic/Immunologic: Allergic/Immunologic: Denies wheezing [facility] Past Medical History Medical History 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 Saddle PE Surgical History Surgical History H/O her
--- NOTE | 2021-01-11 13:31 | WPDANESEPPF ---
Anes - Initial Pre Proc Eval Procedure: Operation Date: 01/11/21 14:30 Proposed Procedures p Laparoscopic Cholecystectomy,Possible Open - Rom Andersen DO Date/Time: 01/11/21 13:31 Surgeon: Keysha Connolly MD Pre Op Diagnosis: Cholecystitis Patient Data Age: 65 Gender: M Height: 1.78 m Weight: 88 kg Last Vital Signs Temp 36.3 C L 01/11/21 10:51 Pulse 56 L 01/11/21 10:51 Resp 16 01/11/21 10:51 BP 136/78 01/11/21 10:51 Pulse Ox 97 01/11/21 11:52 Allergies Allergy/AdvReac Type Severity Reaction Status Date / Time meperidine Allergy Unknown Anaphylactic Verified 01/11/21 05:07 Shock Aoujfxz-Ygn-Gzu Reductase AdvReac Intermediate Muscle Pain Verified 01/11/21 05:07 Inhibitor codeine AdvReac Unknown Itching Verified 01/11/21 10:01 Home Medications Medication Instructions Recorded Confirmed Type albuterol sulfate 90 mcg/actuation See Rx Instructions .ROUTE 06/08/20 01/11/21 Rx aerosol inhaler .COMPLEX 90 Days #54 g montelukast 10 mg tablet 10 mg PO QPM 90 Days #90 tablet 06/08/20 01/11/21 Rx ondansetron 4 mg disintegrating 4 mg TRANSLINGUAL TID PRN #360 06/08/20 01/11/21 Rx tablet tablet quinapril 10 mg tablet 10 mg PO DAILY 90 Days #90 tablet 06/08/20 01/11/21 Rx ezetimibe 10 mg tablet 10 mg PO DAILY 90 Days #90 tablet 09/30/20 01/11/21 Rx budesonide-formoterol 2 puff INHALATION BID PRN 12/07/20 01/11/21 History finasteride 5 mg PO HS 01/11/21 01/11/21 History omeprazole 40 mg PO HS 01/11/21 01/11/21 History tamsulosin 0.4 mg PO HS 01/11/21 01/11/21 History Laboratory Tests 01/11/21 01/11/21 01/11/21 05:20 05:20 06:18 WBC 11.0 K/mm3 H K/mm3 (4.5-10.0) RBC 4.22 M/mm3 L M/mm3 (4.6-6.20) Hgb 12.6 g/dL L g/dL (14.0-18.0) Hct 38.6 % L % (42.0-52.0) MCV 91.5 fl fl (80-100) MCH 29.9 pg pg (26-34) MCHC 32.6 g/dl g/dl (32-36) RDW 14.4 % % (11.5-14.5) Plt Count 148 k/mm3 L k/mm3 (150-375) MPV 10.3 fl fl (7.4-10.4) Immature Gran % (Auto) 0.5 % % (0-0.5) Neut % (Auto) 77.9 % H % (45.5-73.1) Lymph % (Auto) 12.7 % L % (18.3-44.2) [place] % (Auto) 8.0 % % (2.6-8.5) Eos % (Auto) 0.5 % % (0-4.4) Baso % (Auto) 0.4 % % (0.2-1.2) Lymph # (Auto) 1.39 K/mm3 K/mm3 (0.9-3.2) [place] # (Auto) 0.9 K/mm3 H K/mm3 (0.1-0.6) Eos # (Auto) 0.1 K/mm3 K/mm3 (0-0.3) Baso # (Auto) 0.0 K/mm3 K/mm3 (0.0-0.1) Abs Immat Gran (auto) 0.05 K/mm3 H K/mm3 (0.00-0.031) Absolute Neuts (auto) 8.6 K/mm3 H K/mm3 (1.3-6.7) Absolute Nucleated RBC 0.0 K/mm3 K/mm3 (0.0-0.012) Nucleated RBC % 0.0 % % (0.0-0.2) Sodium 137 mmol/L mmol/L (137-145) Potassium 4.0 mmol/L mmol/L (3.4-5.0) Chloride 103 mmol/L mmol/L (98-107) Carbon Dioxide 26 mmol/L mmol/L (22-30) Anion Gap 8 mmol/L mmol/L (8-16) BUN 18 mg/dL mg/dL (9-20) Creatinine 1.00 mg/dL mg/dL (0.7-1.3) Estim Creat Clear Calc Not Reportable Estimated GFR > 60 (59 - ) Glucose 126 mg/dL H mg/dL (75-110) Calcium 9.6 mg/dL mg/dL (8.4-10.2) Total Bilirubin 0.6 mg/dL mg/dL (0.2-1.3) AST 27 U/L U/L (17-59) ALT 23 U/L U/L (4-50) Alkaline Phosphatase 80 U/L U/L (38-126) Total Protein 7.0 g/dL g/dL (6.3-8.2) Albumin 3.9 g/dL g/dL (3.5-5.1) Lipase 164 U/L U/L (23-300) Urine Color Yellow (Yellow) Urine Appearance Cloudy H (Clear) Urine pH 5.0 (5.0-9.0) Ur Specific [place] 1.041 H (1.001-1.035) Urine Protein Negative mg/dL mg/dL (Negative) Urine Glucose (UA) Negative mg/dL mg/dL (Negative) Urine Ketones Negative mg/
[2021-01-11] MEDS: LACTATED RINGERS 1,000 ML 30 ML IV CONT ×2 (13:37→18:48)
[2021-01-11] MEDS: ACETAMINOPHEN 500 MG TABLET 1000 MG PO (13:38)
[2021-01-11] MEDS: KETOROLAC 15 MG/ML VIAL (*BKC) IV PUSH (13:42)
--- NOTE | 2021-01-11 14:31 | SUR.PREOP ---
pt informed of time for surgery,[id number].
--- NOTE | 2021-01-11 15:16 | SUR.PREOP ---
PT INFORMED OF SURGERY TIME DELAY. PT SPEAKING WITH TO UPDATE HER. DENIES NEEDS.
--- NOTE | 2021-01-11 15:28 | PM.IMHP ---
H&P: HPI History of Present Illness Date/Time: 01/11/21 15:28 patient is 65-year-old male with history of hypertension, kidney stone and abdominal hernia status post repair, patient presented emergency department with a complaint of right upper quadrant pain, patient had been eating fried food over the weekend fried fish, hamburgers and fried onion, with all these fried foods patient ate developed right upper quadrant pain, CT scan showed cholecystitis, patient is seen by surgery service evaluate the patient and recommended cholecystectomy and patient and his have agreed, patient is a short and he states [place] denies any chest pain shortness of breath or palpitation, patient had a EKG there were no acute changes, patient clinically stable and there are no contraindication for the patient having surgery. Chief Complaint: right upper quadrant pain Review of Systems Review of Systems: All systems reviewed & are unremarkable except as noted in HPI and below PMFSH Past Medical History Medical History 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 Saddle PE Surgical History Surgical History H/O hernia repair Bilateral H/O medial meniscus repair of left knee H/O medial meniscus repair of right knee H/O shoulder surgery Left clavicle surgery. 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 The patient has 1 son. The patient used to smoke cigars but quit many years ago. No alcohol marijuana or illicit drugs. The patient desires to be a full code. Smoking status: Former smoker Tobacco type: cigars Second hand tobacco smoke exposure: No Smoking end date: 07/03/13 Alcohol intake: never Drinks per week: 1 Substance use: never Spiritual care concerns: No Meds Home Medications and Allergies Home Medications Medication Instructions Recorded Confirmed Type albuterol sulfate 90 mcg/actuation See Rx Instructions .ROUTE 06/08/20 01/11/21 Rx aerosol inhaler .COMPLEX 90 Days #54 g montelukast 10 mg tablet 10 mg PO QPM 90 Days #90 tablet 06/08/20 01/11/21 Rx ondansetron 4 mg disintegrating 4 mg TRANSLINGUAL TID PRN #360 06/08/20 01/11/21 Rx tablet tablet quinapril 10 mg tablet 10 mg PO DAILY 90 Days #90 tablet 06/08/20 01/11/21 Rx ezetimibe 10 mg tablet 10 mg PO DAILY 90 Days #90 tablet 09/30/20 01/11/21 Rx budesonide-formoterol 2 puff INHALATION BID
--- NOTE | 2021-01-11 15:51 | SUR.PREOP ---
pt aware further delay in procedure.
--- NOTE | 2021-01-11 17:35 | WPDHPUPDATE1 ---
History and Physical Update Update Date/Time: 01/11/21 17:35 History and Physical has been reviewed, including an updated exam of the patient. There are NO changes in the patient's condition. Risks, benefits, and alternatives have been discussed and questions answered. Patient agrees to proceed with procedure.
[2021-01-11] MEDS: BUPIVACAINE/EPINEPHRINE 0.5% 30 ML VIAL INFILTRATE (18:03)
--- NOTE | 2021-01-11 18:42 | W.PM.PROC2 ---
Procedure Note - Detailed Date of Procedure 01/11/21 Pre-op Diagnosis Acute cholecystitis Post-op Diagnosis same Procedure Performed Laparoscopic Cholecystectomy Surgeon Rom Andersen, DO Anesthesia general and local ( 0.5% bupivacaine with epinephrine) Indications this is a 65-year-old man who presented to the emergency department with acute onset of upper abdominal pain started last night. His pain continued to progress throughout the night and was localized to the right upper quadrant. He never had symptoms like this before. Workup in the emergency department showed evidence of acute cholecystitis. He was admitted placed on broad-spectrum IV antibiotics. Discussions were made with the patient about treatment options and decision was made to proceed with urgent laparoscopic cholecystectomy, possible open. Findings Laparoscopic cholecystectomy was performed. The gallbladder wall appeared edematous and indurated. There were a few pericholecystic adhesions near the neck of the gallbladder. The cystic duct appeared normal in size and no other abnormalities were noted within the abdominal cavity. The patient did have a couple medium sized gallstones within the neck of the gallbladder. The gallbladder was removed and sent to the lab for pathology. Description of Procedure Procedure as well as risks, benefits, and alternatives were discussed with patient. Written consent was obtained and placed in chart prior to procedure. The patient was brought back to surgical suite. Patient was placed in supine position on operating table. Time-out was done to confirm patient and procedure. Patient was then intubated by the anesthesia department. Abdomen was prepped and draped in sterile fashion using chlorhexidine prep. 0.5% bupivacaine with epinephrine was infiltrated at each site of incision. A 5 millimeter incision was made near the umbilicus, and a 5 millimeter Optiview trocar was advanced through the abdominal layers under direct visualization. Once inside the abdominal cavity, carbon dioxide was insufflated to create a pneumoperitoneum. The camera was inserted and the abdomen was inspected. No immediate abnormalities were identified. The patient was placed in reverse Trendelenburg position and rotated slightly to the left. An 11 millimeter incision was made in the subxiphoid region, and an 11 millimeter trocar was inserted under direct visualization. Two 5 millimeter incisions were made in the right upper quadrant, and two 5 millimeter trocars were inserted under direct visualization. The gallbladder was identified and grasped at the fundus and retracted superiorly. It was then grasped at the infundibulum retracted laterally. Careful dissection around the neck of the gallbladder was performed using blunt dissection with a [place] grasper and hook electrocautery. The cystic duct was identified, and a window was created behind it. The cystic artery was also identified and a window was created behind it. The critical view of safety was identified, visualizing the cystic duct running directly into the neck of the gallbladder, and the cystic artery running directly into the wall of the gallbladder. A 5 millimeter clip gold buyer was then used to place 2 clips proximally and 1 clip distally on both the cystic duct and cystic artery. They were then both transected using endoscopic scissors. Once safely away from the xiao hepatitis, the gallbladder was dissected free from the liver bed using hook electrocautery. Hemostasis was achieved along the way. The gallbladder was removed completely and then removed through the subxiphoid port. The liver bed was then inspected. Hemostasis appeared adequate, and our clips appeared secure. The area was gently irrigated with sterile saline. No other abnormalities were seen. The patient was flattened out in bed, and 1 final inspection was made around the abdominal cavity. The subxiphoid port was removed, and a Alysa
[2021-01-11] MEDS: FINASTERIDE 5 MG TABLET PO (21:59)
[2021-01-11] MEDS: TAMSULOSIN HCL 0.4 MG CAPSULE PO (21:59)
[2021-01-11] MEDS: ACETAMINOPHEN 325 MG TABLET 650 MG PO (22:10)
[2021-01-11] MEDS: PANTOPRAZOLE 40 MG TABLET PO (22:49)
[2021-01-11] MEDS: MONTELUKAST SODIUM 10 MG TABLET PO (22:50)
[2021-01-12 01:14] VITALS: BP 129/64; PULSE 78; RESP 16; TEMP 36.9; O2SAT 97
[2021-01-12 02:40] VITALS: PULSE 72; O2SAT 93
[2021-01-12 05:34] VITALS: BP 122/63; PULSE 56; RESP 18; TEMP 36.8; O2SAT 98
[2021-01-12] MEDS: ACETAMINOPHEN 325 MG TABLET 650 MG PO (06:50)
[2021-01-12 07:08] LABS: Alanine Aminotransferase 26 U/L (4-50); Albumin Level 3.6 g/dL (3.5-5.1); Alkaline Phosphatase 52 U/L (38-126); Anion Gap 4 mmol/L (8-16); Aspartate Amino Transferase 26 U/L (17-59); Bilirubin,Total 1.1 mg/dL (0.2-1.3); Blood Urea Nitrogen 11 mg/dL (9-20); Calcium 9.1 mg/dL (8.4-10.2); Carbon Dioxide 28 mmol/L (22-30); Chloride 105 mmol/L (98-107); Estimated CRCL calculation 65 ml/min; Estimated Glomerular Filt Rate > 60; Glucose 140 mg/dL (75-110); Potassium 4.4 mmol/L (3.4-5.0); Sodium 137 mmol/L (137-145)
[2021-01-12 07:14] LABS: Basophils Percent Auto 0.1 % (0.2-1.2); Hematocrit 35.4 % (42.0-52.0); Hemoglobin 11.8 g/dL (14.0-18.0); Immature Granulocyte Absolute 0.03 K/mm3 (0.00-0.031); Immature Granulocyte Percent A 0.4 % (0-0.5); Lymphocytes Absolute Auto 0.68 K/mm3 (0.9-3.2); Lymphocytes Percent Auto 9.1 % (18.3-44.2); Mean Corpuscular HGB Conc 33.3 g/dl (32-36); Mean Corpuscular Hemoglobin 29.9 pg (26-34); Mean Corpuscular Volume 89.6 fl (80-100); Mean Platelet Volume 10.3 fl (7.4-10.4); Monocytes Absolute Auto 0.4 K/mm3 (0.1-0.6); Monocytes Percent Auto 5.5 % (2.6-8.5); Neutrophils Absolute Auto 6.4 K/mm3 (1.3-6.7); Neutrophils Percent Auto 84.9 % (45.5-73.1); Platelet Count Result 141 k/mm3 (150-375); Red Blood Count 3.95 M/mm3 (4.6-6.20); Red Cell Distribution Width 14.4 % (11.5-14.5); White Blood Count 7.5 K/mm3 (4.5-10.0)
[2021-01-12] MEDS: lisinopriL 10 MG TABLET PO (07:59)
[2021-01-12] MEDS: EZETIMIBE 10 MG TABLET PO (07:59)
--- NOTE | 2021-01-12 08:18 | P.PNAN_ITS ---
Anes - Prog Note Post-Op Date/Time: 01/12/21 08:18 Cardiovascular status: normal Respiratory status: normal Airway patency: baseline Mental status: baseline Post-Op hydration status: normal Vital Signs: Last Vital Signs Temp 36.8 C 01/12/21 05:34 Pulse 56 L 01/12/21 05:34 Resp 18 01/12/21 05:34 BP 122/63 01/12/21 05:34 Pulse Ox 98 01/12/21 05:34 Pain Score (VAS): 0 I/O: Intake & Output 01/11/21 01/12/21 01/12/21 23:59 07:59 15:59 Intake Total 100 500 Output Total 800 900 Balance -700 -400 Laboratory Tests 01/12/21 06:43 01/12/21 06:43 01/11/21 01/12/21 01/12/21 11:36 06:43 06:43 WBC 7.5 RBC 3.95 L Hgb 11.8 L Hct 35.4 L MCV 89.6 MCH 29.9 MCHC 33.3 RDW 14.4 Plt Count 141 L MPV 10.3 Immature Gran % (Auto) 0.4 Neut % (Auto) 84.9 H Lymph % (Auto) 9.1 L [place] % (Auto) 5.5 Eos % (Auto) 0.0 Baso % (Auto) 0.1 L Lymph # (Auto) 0.68 L [place] # (Auto) 0.4 Eos # (Auto) 0.0 Baso # (Auto) 0.0 Abs Immat Gran (auto) 0.03 Absolute Neuts (auto) 6.4 Absolute Nucleated RBC 0.0 Nucleated RBC % 0.0 Sodium 137 Potassium 4.4 Chloride 105 Carbon Dioxide 28 Anion Gap 4 L BUN 11 D Creatinine 1.00 Estim Creat Clear Calc 65 Estimated GFR > 60 Glucose 140 H Calcium 9.1 Total Bilirubin 1.1 AST 26 ALT 26 Alkaline Phosphatase 52 Total Protein 6.0 L Albumin 3.6 Blood Type O Positive Antibody Screen Negative Post-procedural complaints: none Patient Feedback: Patient satisfied with anesthetic care.
--- NOTE | 2021-01-12 09:57 | PM.PNGS ---
Progress Note: A&P Assessment and Plan (1) Cholecystitis: Code(s): K81.9 - Cholecystitis, unspecified Status: Acute Assessment and Plan: POD1 and doing well. Tolerating a low fat diet. Okay from a surgical standpoint to discharge the patient today. No antibiotics needed. Follow up in 2 weeks. Discharge instructions discussed in detail. Additional Plan I have discussed plan of care with Dr. Andersen. Subjective Subjective Date/Time Seen: 01/12/21 09:57 Post Op day: 1 (lap patricia) Patient reports: tolerating a regular diet (low fat) and afebrile Interval history: Patient feeling well today. He reports some incisional soreness, but has been well controlled with Tylenol. Tolerating his diet without any nausea or vomiting. Tolerating activity. No other complaints at this time. Review of Systems Review of Systems: All systems reviewed & are unremarkable except as noted in HPI and below Constitutional: Constitutional: Reports as per HPI, Reports no additional constitutional complaints, Denies chills and Denies fever(s) Cardiovascular: Cardiovascular: Reports no additional cardiovascular complaints, Denies chest pain and Denies leg edema Respiratory: Respiratory: Reports no additional respiratory complaints, Denies cough and Denies dyspnea Gastrointestinal: Gastrointestinal: Reports as per HPI and Reports no additional gastrointestinal complaints Exam Const: General: comfortable, no acute distress, alert and awake Orientation/consciousness: patient oriented x3 GI: Inspection: non-distended and incision (Abdominal incisions clean and dry, glue intact.) GI Palp: Yes Soft to palpation and Yes Tenderness to palpation present (GI) (incisional) Auscultation: normal bowel sounds Skin: General skin exam: normal color Neuro: General: moves all extremities and no focal motor deficits Extrem: General: no clubbing, cyanosis or edema and no calf tenderness Psych: Mental Status: mental status grossly normal Insight: Good insight present (Psych) Judgement: Good judgement present (Psych) Objective Data Vital Signs Vital Signs: Vital Signs - 24 hr 01/11/21 10:51 01/11/21 11:52 01/11/21 13:17 Temperature 97.4 F L 97.8 F Pulse Rate 56 L 59 L Respiratory Rate 16 16 Blood Pressure 136/78 132/83 Pulse Oximetry 99 97 99 01/11/21 18:28 01/11/21 18:45 01/11/21 19:00 Temperature 97.1 F L Pulse Rate 68 80 77 Respiratory Rate 13 14 16 Blood Pressure 122/61 131/76 140/83 Pulse Oximetry 97 100 98 01/11/21 19:15 01/11/21 19:30 01/11/21 19:49 Temperature 97.4 F L Pulse Rate 72 75 68 Respiratory Rate 17 17 16 Blood Pressure 147/84 H 139/88 137/74 Pulse Oximetry 97 96 98 01/11/21 20:34 01/12/21 01:14 01/12/21 02:40 Temperature 97.8 F 98.4 F Pulse Rate 54 L 78 72 Respiratory Rate 16 16 Blood Pressure 126/81 129/64 Pulse Oximetry 98 97 93 01/12/21 05:34 Temperature 98.3 F Pulse Rate 56 L Respiratory Rate 18 Blood Pressure 122/63 Pulse Oximetry 98 Intake/Output Intake/Output: Intake & Output 01/09/21 01/10/21 01/11/21 01/12/21 23:59 23:59 23:59 23:59 Intake Total 1200 500 Output Total 800 900 Balance 400 -400 Meds/Results Medications: Active Medications Generic Name Dose Route Start Last Admin Trade Name Freq PRN Reason Stop Dose Admin Acetaminophen 650 mg 01/11/21 19:49 01/12/21 06:50 Acetaminophen 325 Mg Tablet PO 650 mg Q6H PRN Administration Mild Pain (1-3) or Fever Hydrocodone Bitart/Acetaminophen 1 tab 01/11/21 19:49 Hydrocodone/Acetaminophen (*Crx) 5-325 Mg Tablet PO Q4H PRN Pain Rated 4-6 Hydrocodone Bitart/Acetaminophen 1 tab 01/11/21 19:49 Hydrocodone/Acetaminophen (*Crx) 7.5-325 Mg Tablet PO Q4H PRN Pain Rated 7-10 Albuterol 2 puff 01/11/21 19:49 Albuterol Sulfate (*Sp) Aerosol 1 Puff INHALATION Q6HRT PRN Shortness Of Breath Or Wheezing Ezetimibe 10 mg 01/12/21 09:00 01/12/21 07
--- NOTE | 2021-01-12 10:15 | PM.DS ---
DS: Admitting Diagnosis Admitting Diagnosis Admitting Diagnosis: Abd pain DS: Discharge Diagnosis Discharge Diagnosis (1) Cholecystitis: Code(s): K81.9 - Cholecystitis, unspecified Status: Acute Assessment and Plan: The patient is 65-year-old male with history of hypertension, kidney stone and abdominal hernia status post repair, patient presented emergency department with a complaint of right upper quadrant pain with radiation to his back which occurred after eating fried food over the weekend. He had associated nausea and dry heaves. he came to the emergency room for further evaluation. Initial labs showed slight leukocytosis at 11,000, elevated neutrophils at 77%, normocytic anemia with a hemoglobin of 12.6. Normal CMP other than glucose of 126. normal lipase. Urinalysis showing no acute signs of an infection. CT abdomen pelvis showed Gallbladder wall thickening and/or small amount pericholecystic fluid suspicious for acute cholecystitis. surgery was consulted on the patient and decided to undergo a laparoscopic cholecystectomy Which was completed on 01/11/[address] Andersen. Today the patient is feeling well, eating and drinking without any issues. Denies any fevers or chills overnight. His pain is controlled with oral Tylenol. Surgery evaluated the patient and feels he does not need to be on any type of antibiotics, no narcotic pain medications and continue with [id number] medications. He is to follow-up with surgery as recommended postop for further monitoring. The patient understands and agrees the plan. All questions answered. Return to ER warnings given. (2) Essential (primary) hypertension: Code(s): I10 - Essential (primary) hypertension Status: Chronic DS: Summary Hospital Course Hospital Course: See above Status at Discharge Cognitive/behavioral status at discharge: Stable, improved. Time Spent with Patient Time attestation: Total time spent providing and/or coordinating discharge services: 42 Time spent: Greater than 30 minutes Exam Narrative: Exam Narrative: General: 65-year-old man sitting up in bed watching TV. Appears comfortable. In no acute distress. Skin: No jaundice or cyanosis. Good skin turgor. Neck: Full range of motion. Supple. Respiratory: Lungs are clear to auscultation bilaterally. No bony chest wall tenderness. Cardiovascular: The heart has a regular rate and rhythm without murmur. Lower extremities: No lower extremity edema. Distal pulses are easily palpated. No calf tenderness to palpation. Gastrointestinal: slight tenderness to palpation of abdomen diffusely right upper quadrant mostly. surgical incisions are all closed, non erythematous, no draining. The abdomen is otherwise soft, and nondistended with active bowel sounds. Psychiatric: Lucid and oriented. Memory intact. Neurologic: No focal deficits. Speech is clear. No facial drooping. DS: Data Data Completed and Pending Pending studies at discharge: Pending at discharge 01/11/21 17:55 Surgical [PTH] Routine Labs on day of discharge: Labs from last 24 hours 01/12/21 01/12/21 01/11/21 06:43 06:43 11:36 WBC 7.5 RBC 3.95 L Hgb 11.8 L Hct 35.4 L MCV 89.6 MCH 29.9 MCHC 33.3 RDW 14.4 Plt Count 141 L MPV 10.3 Immature Gran % (Auto) 0.4 Neut % (Auto) 84.9 H Lymph % (Auto) 9.1 L [place] % (Auto) 5.5 Eos % (Auto) 0.0 Baso % (Auto) 0.1 L Lymph # (Auto) 0.68 L [place] # (Auto) 0.4 Eos # (Auto) 0.0 Baso # (Auto) 0.0 Abs Immat Gran (auto) 0.03 Absolute Neuts (auto) 6.4 Absolute Nucleated RBC 0.0 Nucleated RBC % 0.0 Sodium 137 Potassium 4.4 Chloride 105 Carbon Dioxide 28 Anion Gap 4 L BUN 11 D Creatinine 1.00 Estim Creat Clear Calc 65 Estimated GFR > 60 Glucose 140 H Calcium 9.1 Total Bilirubin 1.1 AST 26 ALT 26 Alkaline Phosphatase 52 Total Prote
== END 2021-01-12 12:50 | disposition home or self-care (01) ==
LOC: ANHED 07:48 → ANH3MEDSUR 09:23
PROVIDERS: Surgery; Admitting Provider Family Medicine; Emergency Provider Emergency Medicine; PCP Internal Medicine; Visit Provider Internal Medicine
PROC: 0FT44ZZ Resection of Gallbladder, Percutaneous Endoscopic Approach (ICD-10-PCS; CPT 47562; principal; 2021-01-11 14:30)
DX: K80.10 Calculus of gallbladder with chronic cholecystitis without obstruction (principal); I11.9 Hypertensive heart disease without heart failure; N40.1 Benign prostatic hyperplasia with lower urinary tract symptoms; R33.8 Other retention of urine; G57.71 Causalgia of right lower limb; J45.20 Mild intermittent asthma, uncomplicated; E78.2 Mixed hyperlipidemia; G47.33 Obstructive sleep apnea (adult) (pediatric); Z86.711 Personal history of pulmonary embolism; Z87.891 Personal history of nicotine dependence; Z79.51 Long term (current) use of inhaled steroids
CPT/HCPCS: 47562; 36415; 74177; 80053; 81001; 83690; 85025; 86850; 86900; 86901; 87086; 88304; 93005; 96361; 96365; 96366; 96375; 96376; 99285; A9270; G0378; J1100; J1885; J2405; J2543; J2704; J2710; J3010; J7030; J7120; Q9967

== ENCOUNTER → 2023-02-02 09:31 | Outpatient (CLI) | payer OTHER, SELFPAY ==
--- NOTE | ~2023-02-02 | MR_ITS ---
EXAMINATION: MR brain/brain stem wo con DATE: 02/02/2023 10:14 INDICATION: Vertigo. TECHNIQUE: Magnetic resonance imaging (MRI) of the brain and brainstem was performed without intraven ous contrast. COMPARISON: None. FINDINGS: There are scattered areas of nonspecific increased T2-weighted signal intensity in the cere bral white matter, which is within normal limits for the patient's age. There is no intracranial hemo rrhage, acute infarction, or abnormal intracranial mass lesion. The ventricles are normal in size. Th ere is mild mucosal thickening in the paranasal sinuses. The orbits are normal. The mastoid air cells are normal. IMPRESSION: 1. Normal aging brain. Reviewed, dictated and finalized at location L. IMPRESSION: 1. Normal aging brain.
== END ==
PROVIDERS: PCP Family Medicine; Visit Provider Family Medicine
DX: R42 Dizziness and giddiness (principal); R41.0 Disorientation, unspecified
CPT/HCPCS: 70551

== ENCOUNTER 2023-12-02 12:54 | Emergency (ER) | payer OTHER, SELFPAY ==
[2023-12-02] VITALS (12 sets, daily range): BP systolic 130–160; BP diastolic 80–96; PULSE 78–89; RESP 12–20; TEMP 36.8; O2SAT 96–100
--- NOTE | ~2023-12-02 | CT_ITS ---
EXAMINATION: CT abdomen pelvis w con DATE: 12/02/2023 15:43 INDICATION: Low abdominal pain. Constipation. Fever. TECHNIQUE: Computed tomography (CT) of the abdomen and pelvis was performed with 100 mL Omnipaque 350 intravenous contrast. Automated exposure control and iterative reconstruction technique were employe d. The dose-length product was 1184.71 mGy-cm. COMPARISON: CT abdomen and pelvis 01/11/2021 FINDINGS: The visualized portions of the lung bases demonstrate mild atelectasis. No pleural effusion . The heart size is normal. No pericardial effusion. There are coronary artery calcifications. The li lynsey is normal. There are changes of cholecystectomy. The spleen, pancreas, adrenal glands, and right kidney are normal. There are cysts in left kidney measuring up to 2.7 cm. There is a 3 mm stone in le ft kidney. There are scattered diverticula in the colon. There is wall thickening of the sigmoid colo n with surrounding fat stranding, consistent with diverticulitis. The appendix is normal. There are n o dilated loops of bowel. Aortic atherosclerosis is noted. There are changes of fundoplication of the stomach. There are no pathologically enlarged lymph nodes. There is no free intraperitoneal fluid. T here is mild thoracic and lumbar spondylosis. IMPRESSION: 1. Acute sigmoid diverticulitis. No perforation or abscess. Reviewed, dictated and finalized at location E.
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
[2023-12-02 14:56] LABS: Basophils Percent Auto 0.2 % (0.2-1.2); Eosinophils Absolute Auto 0.1 K/mm3 (0-0.3); Eosinophils Percent Auto 0.4 % (0-4.4); Hemoglobin 14.3 g/dL (14.0-18.0); Immature Granulocyte Absolute 0.05 K/mm3 (0.00-0.031); Immature Granulocyte Percent A 0.4 % (0-0.5); Lymphocytes Absolute Auto 1.59 K/mm3 (0.9-3.2); Lymphocytes Percent Auto 12.8 % (18.3-44.2); Mean Corpuscular HGB Conc 33.3 g/dl (32-36); Mean Corpuscular Volume 90.3 fl (80-100); Mean Platelet Volume 10.2 fl (7.4-10.4); Monocytes Absolute Auto 1.1 K/mm3 (0.1-0.6); Monocytes Percent Auto 8.7 % (2.6-8.5); Neutrophils Absolute Auto 9.7 K/mm3 (1.3-6.7); Neutrophils Percent Auto 77.5 % (45.5-73.1); Platelet Count Result 239 k/mm3 (150-375); Red Blood Count 4.76 M/mm3 (4.6-6.20); Red Cell Distribution Width 13.5 % (11.5-14.5); White Blood Count 12.5 K/mm3 (4.5-10.0)
[2023-12-02 15:08] LABS: Alanine Aminotransferase 16 U/L (6-50); Albumin Level 4.6 g/dL (3.5-5.1); Alkaline Phosphatase 86 U/L (38-126); Anion Gap 8 mmol/L (4-12); Aspartate Amino Transferase 22 U/L (17-59); Bilirubin,Total 1.3 mg/dL (0.2-1.3); Blood Urea Nitrogen 16 mg/dL (9-20); Calcium 9.6 mg/dL (8.4-10.2); Carbon Dioxide 27 mmol/L (22-30); Chloride 105 mmol/L (98-107); Estimated CRCL calculation 71 ml/min; Estimated Glomerular Filt Rate > 60; Glucose 103 mg/dL (65-110); Lactic Acid Reflex 0.8 mmol/L (0.7-2.0); Lipase 34 U/L (23-300); Potassium 3.9 mmol/L (3.4-5.0); Sodium 140 mmol/L (137-145)
[2023-12-02 15:12] LABS: INR 1.1; Prothrombin Time 14.8 Seconds (11.1-14.7)
[2023-12-02 15:13] LABS: Partial Thromboplastin Time 35.2 Seconds (22.3-36.8)
[2023-12-02 15:38] LABS: Appearance Urine Clear (Clear); Bacteria Urine None Seen /hpf; Bilirubin Urine Negative (Negative); Blood Urine 1+ (Negative); Color Urine Yellow (Yellow); Glucose Urine UA Negative (Negative); Ketones Urine Negative (Negative); Leukocyte Esterase Ur Negative LEU/UL (Negative); Nitrate Urine Negative (Negative); Non Pathogenic Casts 0-2; Protein Urine Negative (Negative); Specific Grav Ur 1.025 (1.001-1.035); Squamous Epithelial Cell Urine None Seen /hpf (Few); WBC Urine 0-5 /hpf (0-3); pH Urine 5.5 (5.0-9.0)
--- NOTE | 2023-12-02 15:50 | PC.NURSE ---
patient refuses morphine. denies need for PRN pain meds
[2023-12-02 15:51] LABS: Add Urine Microscopic? YES
[2023-12-02] MEDS: metroNIDAZOLE 500 MG TABLET PO (16:33)
[2023-12-02] MEDS: CIPROFLOXACIN 500 MG TAB PO (16:33)
== END 2023-12-02 16:50 | disposition home or self-care (01) ==
PROVIDERS: Emergency Provider Student in an Organized Health Care Education/Training Program; PCP Family Medicine
DX: D72.829 Elevated white blood cell count, unspecified (principal); R31.29 Other microscopic hematuria; K57.32 Diverticulitis of large intestine without perforation or abscess without bleeding; M19.90 Unspecified osteoarthritis, unspecified site; I11.0 Hypertensive heart disease with heart failure; I50.9 Heart failure, unspecified; Z86.711 Personal history of pulmonary embolism; J45.909 Unspecified asthma, uncomplicated
CPT/HCPCS: 36415; 74177; 80053; 81001; 83605; 83690; 85025; 85610; 85730; 99284; A9270; Q9967

== ENCOUNTER 2025-04-17 15:14 | Outpatient (CLI) | payer OTHER, SELFPAY ==
--- OUTSIDE RECORDS SUMMARY | 2019-07-15 03:52 | XMS_ITS | Continuity of Care Document ---
Author Organization [facility] Address [address] [place] [address] Phone Care Team Providers Care Enrollment Processor Name Role Phone Rom Valdes MD Unavailable Unavailable Allergies, Adverse Reactions, Alerts Substance Reaction Status Criticality No Known Allergies Active No Inform ation Medications Medication Instructions Dosage Effective Dates (start - stop) Status Comments cyclobenzaprine 5 mg tablet take 1 tablet by oral route 3 times every day 5 MG - Active quinapril 10 mg tablet - Active omeprazole 40 mg capsule,delayed release - Active montelukast 10 mg tablet - Active tamsulosin 0.4 mg capsule - Active finasteride 5 mg tablet - Active Livalo 1 mg tablet - Active metformin 1,000 mg tablet - Active Zofran 4 mg tablet - Active cyclobenzaprine 5 mg tablet take 1 tablet by oral route 3 times every day 5 MG - No Longer Active Procedures Procedure Date Global/Postop followup visit Depo Medrol Methylprednisolone 40 MG inj Inject sngl/barrel waterer trig pt 1-2 msclgrp Office/outpatient visit,est, mod 2018 Depo Medrol Methylprednisolone 40 MG inj Asp/inject major joint or bursa w/o US g uidance Office/outpatient visit,est, low 2018 MRI Upper extr joint, w/o contrast Office/outpatient visit,est, low 2018 Global/Postop followup visit Global/Postop followup visit Vinicius Sling With Waist Strap, Off The She lf Global/Postop followup visit Arthroscopic Biceps Tenodesis 9 Debridement Limited Office/outpatient visit,raya conner 2018 Advance Directives Directive Yes / No Effective Date File Name No Information Encounters Encounter Description Practice Location Reason(s) For Visit Diagnoses Date Provider Providers Copied on Encounter [facility], [address], [id number], [place] [phone] [facility] No Information 0 Lucio Cueto. [address] [facility], [facility] [address], [place], [place], [id number] , [place]. tel: [phone] [facility], [address], [id number], [place] [phone] [facility] Complete rotatr-cuff tear/ruptr of r shoulder, not trauma 0 Lucio Cueto. [address] [facility], [facility] [address], [place], [place], [id number] , [place]. tel:[phone] [facility], [address] [address], [place], [place], [id number], [place] [phone] [facility] bilateral shoulders (chief complaint) Complete rotatr-cuff tear/ruptr of left shoulder, not traumaComplete rotatr-cuff tear/ruptr of r shoulder, not trauma 9 Lucio Cueto. [address] [facility], [address] [address], [place], [place], [id number] , [place]. tel: [phone] Office/outpa tient visit,est, raya [facility], [address], [id number], [place] [phone] [facility] kristin shoulder (chief complaint) Incomplete rotatr-cuff tear/ruptr of r shoulder, not traumaCervicalgia 9 Pia Barros. [address] [facility], [place], [place], [address] , [place]. tel:[phone] Office/outpa tient visit,[facility], [address] [facility] [facility] [address], [place], [place], [address], [place] tel:[phone] [facility] left shoulder (chief complaint) Impingement syndrome of left shoulderIncomplet e rotatr-cuff tear/ruptr of r shoulder, not trauma 9 Pia Barros. [address] [facility], [place], [place], [address] , [place]. tel:[phone] Referring Provider: Rom Burrell, [address] [facility] [address], [place], [address] . tel:[phone] [facility], [address] [address], [place], [place], [address], [place] tel:[phone] [facility] Pain in left shoulder 9 [facility]. [address] [facility], [place], [place], [address] , [place]. tel:[phone] Referring Provider: Rom Burrell, [address], [place], [address] . tel:[phone] Office/outpa tient visit,[facility], [address] [facility] [address], [place], [place], [address], [place] tel:[phone] [facility] Right shoulder (chief complaint) Complete rotatr-cuff tear/ruptr of r shoulder, not traumaComplete rotatr-cuff tear/ruptr of left shoulder, not trauma 9 Lucio Cueto. [address] [facility], [address], [place], [place], [address] , [place]. tel:[phone] [facility], [address] [address], [place], [place], [address], [place] tel:[phone] [facility] Right shoulder (chief complaint) Complete rotatr-cuff tear/ruptr of r shoulder, not trauma 9 Lucio Cueto. [address] [facility], [facility] [address], [place], [place], [address] , [place]. tel: [phone] [facility], [address] [address], [place], [place], [address], [place] [phone] [facility] r shoulder (chief complaint) Complete rotatr-cuff tear/ruptr of r shoulder, not trauma 9 Lucio Cueto. [address] [facility], [address] [address], [place], [place], [address] , [place]. tel: [phone] [facility], [address], [id number], [place] tel:[phone] [facility] Right shoulder (chief complaint) Complete rotatr-cuff tear/ruptr of r shoulder, not trauma 9 Lucio Cueto. [address] [facility], [address] [address], [place], [place], [address] , [place]. tel: [phone] [facility], [address], [id number], [place] [phone] [facility] Complete rotatr-cuff tear/ruptr of r shoulder, not trauma 9 Lucio Cueto. [address] [facility], [facility] [address], [place], [place], [address] , [place]. tel: [phone] [facility], [address] [address], [place], [place], [address], [place] tel:[phone] [facility] Right shoulder (chief complaint) Complete rotatr-cuff tear/ruptr of r shoulder, not trauma 9 Lucio Cueto. [address] [facility], [facility] [address], [place], [place], [address] , [place]. tel:[phone] [facility], [address], [id number], [place] tel:[phone] [facility] [place] No Information 9 Lucio Cueto. [address] [facility], [facility] [address], [place], [place], [address] , [place]. tel: [phone] [facility], [address] [address], [place], [place], [address], [place] [phone] [facility] Complete rotatr-cuff tear/ruptr of r shoulder, not trauma 9 Lucio Cueto. [address] [facility], [address] [address], [place], [place], [address] , [place]. tel: [phone] [facility], [address], [id number], [place] [phone] [facility] No Information 9 Lucio Cueto. [address] [facility], [address] [address], [place], [place], [address] , [place]. tel: [phone] Office/outpa tient visit,[facility], [address], [id number], [place] [phone] [facility] Right Shoulder (chief complaint) Complete rotatr-cuff tear/ruptr of r shoulder, not trauma 9 Lucio Cueto. [address] [facility], [facility] [address], [place], [place], [address] , [place]. tel: [phone] Family History Family Member Type Diagnosis Age At Onset Father Problem (finding) Hypertension Sister Problem (finding) Diabetes Sister Problem (finding) Hypertension Sister Problem (finding) Seizures Sister Problem (finding) Osteoarthritis Brother Problem (finding) Osteoarthritis Brother Problem (finding) Hypertension Father Problem (finding) Osteoarthritis Father Problem (finding) Cancer, unknown Payers Payer name Insurance type Covered libertarian ID Jonathan ray(s) [facility] [id number] Social History Type Description Quantity Date Captured Comments Alcohol Use Details Unknown Caffeine Use Details Unknown Tobacco Use Status No Information Smoking Status No Information Sex Male Chief Complaint And Reason For Visit No Information Reason For Referral Reason For Referral No Information Plan Of Treatment Date Type Action Status Referral Ordered: MRI Upper extr joint, w/o contrast LT shoulder Appointment date/timeframe: 05/03/2019 ordered History Of Present Illness Encounter Date Complaint History Of Prese nt Illness bilateral shoulders Yamil comes i n the office today for his bilateral shoulder pain. kristin shoulder Yamil returns to the office for follow up of bilateral shoulder pain. He is status post right shoulder debridement of partial rtc tear and biceps tenodesis in 12/2018. He is going to PT and complains of pain about the right neck and scapula that he believes is limiting his rehab. Pain is located about the superior and posterior shoulder. He received trigger point injections a number of years ago which were helpful. He has managed cervical spine DDD conservatively. He denies paresthesias or weakness in the UE. He requests tpi today. He also complains of aching and spasms in the right biceps with injury. left shoulder Yamil comes in th e office today for results of the MRI left shoulder at [facility] on 05/03/2019 which shows mild to moderate rtc tendinopathy without tear, mild AC and GH osteoarthritis. He cont with HEP and would like to attend PT for the shoulders. He is status post right shoulder debridement of a partial tear in 12/12/2018. Right shoulder Patient comes in today for follow up of his right shoulder Right shoulder Patient comes in today for follow up of his right shoulder r shoulder patient presents to the office today for follow up right shoulder pain Right shoulder Patient comes in today for follow up of his right shoulder arthroscopy Right shoulder Patient comes in today for follow up of his right shoulder arthroscopy Right Shoulder Patient presents to office for right shoulder pain. Functional Status Date Functional Assessmen t No Information Instructions Date Instruction Additional Infor mation No Information Assessments Type Assessment Date No Information Patient Care Teams Name Effective Dates (start - stop) Status Members No Information
--- OUTSIDE RECORDS SUMMARY | 2023-12-06 04:40 | XMS_ITS | Continuity of Care Document ---
Author Organization [facility] Address [address] [place] [address] Phone Care Team Providers Care It Specialist Name Role Phone Chloé GORDON MD, Farshad [...] Providers Copied on Encounter OFFICE/OUTPAT IENT VISIT, [facility], [address] [place] [address], [id number], tel:[phone] OPH CONSULT [facility] blurry vision (chief complaint) Age-related nuclear cataract, bilateralOther vitreous opacities, bilateral 4 Chloé Yen. [address], [address] [place] [address], [id number] , [place]. tel:[phone] Referring Provider: Farshad Padgett, [address] [place] [address], [address] . tel:[phone] OFFICE/OUTPAT IENT VISIT, [facility], [address] [place] [address], [id number], tel:[phone] OPH CONSULT [facility] Blurry Vision (chief complaint) Age-related nuclear cataract, bilateralOther vitreous opacities, bilateral Aug- 3 Chloé Yen. [address], [address], [id number] , [place]. tel:[phone] Referring Provider: Farshad Padgett, [address], [place], [address] . tel:[phone] OFFICE/OUTPAT IENT VISIT, [facility], [address] [place] [address], [place], [id number], tel:[phone] OPH CONSULT [facility] blurry vision (chief complaint) Dry eyes (chief complaint) Age-related nuclear cataract, bilateralOther vitreous opacities, bilateral Dec- 0 Chloé Yen. [address], [address], [place], [place], [id number] , . tel:[phone] Referring Provider: Milad Gong Jr, [facility] [place], [address]. tel:[phone] OFFICE/OUTPAT IENT VISIT, [facility], [address] [address], [place], [place], [id number], tel:[phone] OPH CONSULT [facility] blurry vision (chief complaint) Dry eyes (chief complaint) Age-related nuclear cataract, bilateral 8 Chloé Yen. [address], [address], [place], [place], [id number] , [place]. tel:[phone] Referring Provider: Farshad Padgett, [address], [place], [address] . tel:[phone] Family History Family Member Type Diagnosis Age At Onset No Information Payers Payer name Insurance type Covered republican ID Authorfarooqa cory(s) UMR CI [id number] Social History Type Description Quantity Date Captured [...]
--- NOTE | 2025-04-17 15:32 | ECG_ITS ---
Test Date: 2025-04-17 15:40:49 Measurements Intervals [place] Rate: 85 P: 47 MD: 184 QRS: 3 QRSD: 102 T: 51 QT: 339 QTc: 405 Interpretive Statements SINUS RHYTHM INCOMPLETE RIGHT BUNDLE BRANCH BLOCK BORDERLINE ECG No previous ECG available for comparison Electronically Signed On 04-17-2025 17:12:28 CDT by Pedro Pablo Dai D.O.
[2025-04-17 16:20] LABS: INR 1.1; Partial Thromboplastin Time 30.9 Seconds (22.3-36.8); Prothrombin Time 14.5 Seconds (11.1-14.7)
--- OUTSIDE RECORDS SUMMARY | 2025-04-17 17:23 | XMS_ITS | Clinical Summary ---
Author Organization [facility] Address [address] [place] [address] Care Team Providers Care Electric Motor Winders Assembler Name Role Phone Milad Gong MD Unavailable Unavailable Ananda Rhodes MD Unavailable [phone] Rudy Mcintyre MD Primary Care Provider [phone] Allergies Active Allergy Reactions Criticality Noted Date Comments Codeine Vomiting Low 06/22/2016 ONLY TYLENOL 3 CAUSES A PROBLEM (NAUSEA & VOMITING)- CAN TAKE TYLENOL AND CODEINE IN COUGH SYRUP AND IS OK Meperidine Anaphylaxis High 06/02/2016 Lisinopril Angioedema High 01/27/2022 Molds & Smuts Shortness of Breath,Cough High 08/02/2021 Triggers his asthma Quinapril-Hydrochloro thiazide Angioedema 01/27/2022 Pt states he isn't allergic to hctz Statins Myalgias Low 12/07/2020 Medications Cholecalciferol (VITAMIN D3) 2000 UNITS Tab Take 1 tablet (50 mcg total) by mouth daily. 016 Active zinc sulfate 220 MG capsule Take 1 capsule (50 mg of elemental zinc total) by mouth daily. Active cetirizine 10 MG tablet Take 1 tablet (10 mg total) by mouth daily as needed. Active RESVERATROL OR Take 1 tablet by mouth daily. Active triamcinolone (KENALOG) 0.025 % ointment Apply topically 2 (two) times daily. Active Brompheniramine-PPA (BROMALINE EXTENTABS OR) Take by mouth daily. Active zinc gluconate 50 MG Tab Take 1 tablet (50 mg total) by mouth daily. Active ipratropium-albuterol (DUONEB) 0.5-2.5 (3) MG/3ML SolutionIndications:Mil d intermittent asthma without complication (HHS/HCC) Take 3 mLs by nebulization every 4 (four) hours as needed. 360 mL 023 Active Coenzyme Q10 (COQ-10) 400 MG CapIndications:Pure hypercholesterolemia Take 1 capsule by mouth daily. 90 capsule 1 023 Active meclizine (ANTIVERT) 25 MG tablet TAKE 1 TABLET BY MOUTH EVERY 6 HOURS FOR 7 DAYS NEEDED FOR VERTIGO 023 Active sildenafil (VIAGRA) 100 MG tablet 023 Active metoprolol tartrate (LOPRESSOR) 50 MG tabletIndications:Prima ry hypertension Take 1 tablet (50 mg total) by mouth 2 (two) times daily. 60 tablet 3 023 Active Additional Information Patient not taking.Reported on 08/20/2024 tamsulosin (FLOMAX) 0.4 MG CapIndications:Benign prostatic hyperplasia without lower urinary tract symptoms Take 1 capsule (0.4 mg total) by mouth daily. 90 capsule 1 023 Active SYMBICORT 160-4.5 MCG/ACT inhalerIndications:Mild intermittent asthma without complication (HHS/HCC) Inhale 2 puffs into the lungs 2 (two) times daily. 10.2 g 1 023 Active rosuvastatin (CRESTOR) 20 MG tabletIndications:Pure hypercholesterolemia Take 1 tablet (20 mg total) by mouth nightly at bedtime. 90 tablet 1 023 Active Additional Information Patient not taking.Reported on 08/20/2024 montelukast (SINGULAIR) 10 MG tabletIndications:Seaso nal allergies Take 1 tablet (10 mg total) by mouth nightly at bedtime. at bedtime 90 tablet 1 023 Active gemfibrozil (LOPID) 600 MG tabletIndications:Pure hypercholesterolemia Take 1 tablet (600 mg total) by mouth 2 (two) times daily before meals. 180 tablet 3 023 Active finasteride (PROSCAR) 5 MG tabletIndications:Benig n prostatic hyperplasia without lower urinary tract symptoms Take 1 tablet (5 mg total) by mouth daily. 90 tablet 1 023 Active amLODIPine (NORVASC) 10 MG tabletIndications:Prima ry hypertension Take 1 tablet (10 mg total) by mouth daily. 90 tablet 1 023 Active albuterol sulfate HFA 108 (90 Base) MCG/ACT inhalerIndications:Mild intermittent asthma without complication (HHS/HCC) Inhale 2 puffs into the lungs every 4 (four) hours as needed for Wheezing. 54 g 023 Active ezetimibe (ZETIA) 10 MG tabletIndications:Pure hypercholesterolemia Take 1 tablet (10 mg total) by mouth daily. 30 tablet 023 Active REPATHA SURECLICK 140 MG/ML injection (PEN) INJECT 1 ML SUBCUTANEOUSLY EVERY TWO WEEKS Active ondansetron (ZOFRAN-ODT) 4 MG disintegrating tabletIndications:Nause a DISSOLVE 1 TABLET ON TOP OF THE TONGUE EVERY 8 HOURS NEEDED FOR NAUSEA 60 tablet 024 Active pantoprazole EC (PROTONIX) 40 MG tabletIndications:Gastr oesophageal reflux disease without esophagitis TAKE 1 TABLET BY MOUTH DAILY 90 tablet 3 025 Active Active Problems Problem Noted Date Diagnosed Date Angioedema 01/27/2022 Primary hypertension 02/21/2021 Pure hypercholesterolemia 02/21/2021 Benign prostatic hyperplasia without lower urinary tract symptoms 02/21/2021 Primary insomnia 02/21/2021 Gastroesophageal reflux disease without esophagi tis 02/21/2021 Candidiasis of esophagus 07/05/2019 Overview (08/20/2024): Added automatically from request for surgery [id number] Obstructive sleep apnea on CPAP 12/27/2016 Hypertriglyceridemia 06/01/2011 Overview (08/02/2021): Osteoarthrosis 05/04/2011 Overview (08/02/2021): Asthma Encounters Date Type Department Care Team Description 04/02/2025 11:37 AM CDT - 04/02/2025 11:59 PM CDT [place] [address] [place] [address] Shawanda Bergman MD Discharge Disposition: Home or Self Care (Routine Discharge) 04/02/2025 Travel from Last 3 Months Immunizations Immunization Administration Dates Next Due Fluzone High Dose (IIV, triv alent, 0.5mL) 05/04/2024 Fluzone High Dose - >Age 65 (Prefilled Syringe) 04/25/2022,05/26/2021,04/01/2020,2018 Influenza (Generic) 04/30/2013 Influenza Adult (Generic) 04/01/2023,05/26/2021 MODERNA COVID-19 BIVALENT (1 2+), MRNA, LNP-S, PF 05/29/2022 PFIZER COVID-19 (ORIGINAL FORMULATION, PURPLE CAP) mRNA, LNP-S, PF, 30 MCG/0.3 ML DOSE 10/28/2021,04/08/2021,09/09/2020,2020 Pneumococcal (Pneumovax 23) 01/20/2015 Zoster (Zostavax) 40373 Unt/0.65Ml 04/19/2017 Family History Medical History Relation Comments AAA Father Heart Attack Father Dementia Mother Hyperlipidemia Mother Hypertension Mother Heart Attack Paternal Grandfather Diabetes Sister Relation Status Comments Father Mother Paternal Grandfather Sister Alive Social History Tobacco Use Types Packs/Day Years Used Date Smoking Tobacco: Never Smokeless Tobacco: Never Tobacco Cessation:Counseling Given: No Alcohol Use Standard Drinks/Week Comments Yes 0 (1 standard drink = 0.6 oz pur e alcohol) occ PHQ-2 Answer Date Recorded Patient Health Questionnaire-2 Score 0 10/07/2022 Sex and Gender Information Value Date Recorded Sex Assigned at Male 01/27/2022 7:47 AM CDT Legal Sex Male 10:50 AM HEALTH SPA MANAGER Gender Identity Male 01/27/2022 7:47 AM CDT Sexual Orientation Not on file 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 Not on file Last Filed Vital Signs Vital Sign Reading Time Taken Comments Blood Pressure 139/79 08/20/2024 10:32 AM HEALTH SPA MANAGER Pulse 78 08/20/2024 10:32 AM HEALTH SPA MANAGER Temperature 36.8 C (98.3 F) 08/20/2024 10:32 AM HEALTH SPA MANAGER Respiratory Rate 16 08/20/2024 10:32 AM HEALTH SPA MANAGER Oxygen Saturation 94% 08/20/2024 10:32 AM HEALTH SPA MANAGER Inhaled Oxygen Concentration - - Weight 97.5 kg (215 lb) 08/20/2024 10:32 AM HEALTH SPA MANAGER Height 177.8 cm (5' 10) 08/20/2024 10:32 AM HEALTH SPA MANAGER Body Mass Index 30.85 08/20/2024 10:32 AM HEALTH SPA MANAGER Plan of Treatment Health Maintenance Due Date Last Done Comments Hepatitis C 12/31[birth year]1971 DTaP, Tdap and Td Vaccines (1 - Tdap) 1972 RSV Immunization or 60+ Years (1 - Risk 60-74 years 1-dose series) 2013 Pneumococcal Vaccine: 50+ Years (2 of 2 - PCV) 01/21/2016 01/20/2015 Zoster Vaccines (2 of 3) 06/14/2017 04/19/2017 PHQ-2 (Physician Kenaitze) 07/03/2024 COVID-19 Vaccine ( season) 2025 04/21/2024, 04/24/2023, 05/29/2022, Additional history exists Influenza Adult (#1) 2025 05/04/2024, 04/01/2023, 04/25/2022, Additional history exists Colorectal Cancer Screening Colonoscopy (10 Years) 02/08/2031 02/08/2021 Hepatitis A Vaccines Aged Out No long er eligible based on patient's age to complete this topic Meningococcal B Vaccine Aged Out No l onger eligible based on patient's age to complete this topic Meningococcal Vaccine Aged Out No rhett bhanu eligible based on patient's age to complete this topic RSV Immunizations Under 20 Months Aged Out No longer eligible based on patient's age to complete this topic Goals Goal Patient Goal Type Associated Problems Recent Progress Patient-Stated? 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 There is a 9 mm nonobstructing calculus in the inferior left renal pole. 2. Prostatomegaly. There is a small hypodense region in the base of the prostate of uncertain clinical significance. At minimum, correlation with PSA is recommended. 3. Fatty infiltration of the liver. Referred By: SHAWANDA BERGMAN Interpreted By: Kane Walsh MD, 04/04/2025 6:31 AM Narrative 04/04/2025 6:40 AM CDT [id number] [place] [address] Examination: CT ABD+PEL WWO CON Exam time: 04/02/2025 12:05 PM INDICATION: Gross hematuria COMPARISON: CT abdomen and pelvis 04/21/2022 TECHNIQUE: Computed tomography of the abdomen and pelvis was obtained before and after the administration of intravenous contrast, 75 mL Isovue-370 via the right antecubital fossa, according to CT urogram protocol without immediate complication. Delayed images were also obtained. No oral contrast was administered. Mainframe Applications Developer film of the abdomen as well as additional IVP images were also obtained. A dose lowering technique was used for this procedure, which may include, but is not limited to, dose reduction technique, automated exposure control, the use of iterative reconstruction, and ALARA (As Low As Reasonably Achievable) / Image Gently techniques. FINDINGS: The visualized lung bases are clear. Fatty infiltration of the liver. Cholecystectomy. The spleen, pancreas, and adrenal glands are unremarkable. There is atherosclerosis of the abdominal aorta without aneurysm. There is diverticulosis of the descending and sigmoid colon without evidence for diverticulitis. The appendix is normal. No bowel obstruction or free intraperitoneal air. There are a few prominent lymph nodes in the pelvic sidewall which are unchanged. No acute osseous abnormality. There is a 9 mm calculus in the left lower renal pole causing no significant hydronephrosis. There is no ureteral calculus. There is no calculus in the urinary bladder. The prostate is enlarged, measuring about 5.6 cm in transverse dimension and 4.7 cm in AP dimension. There is a small round 7 mm hypodense region in the posterior aspect of the prostate of uncertain significance. There are a few renal cysts. There is no enhancing renal mass. There is no definite urinary bladder mass. The opacified portions of the renal collecting systems and ureters are unremarkable. Procedure Note Kane Walsh MD - 04/04/2025 [facility] [address] [place] [address] Examination: CT ABD+PEL WWO CON Exam time: 04/02/2025 12:05 PM INDICATION: Gross hematuria COMPARISON: CT abdomen and pelvis 04/21/2022 TECHNIQUE: Computed tomography of the abdomen and pelvis was obtainedbefore and after the administration of intravenous contrast, 75 mLIsovue-370 via the right antecubital fossa, according to CT urogramprotocol without immediate complication. Delayed images were alsoobtained. No oral contrast was administered. Mainframe Applications Developer film of the abdomen aswell as additional IVP images were also obtained. A dose loweringtechnique was used for this procedure, which may include, but is notlimited to, dose reduction technique, automated exposure control, the useof iterative reconstruction, and ALARA (As Low As Reasonably Achievable) /Image Gently techniques. FINDINGS: The visualized lung bases are clear. Fatty infiltration of theliver. Cholecystectomy. The spleen, pancreas, and adrenal glands areunremarkable. There is atherosclerosis of the abdominal aorta withoutaneurysm. There is diverticulosis of the descending and sigmoid colonwithout evidence for diverticulitis. The appendix is normal. No bowelobstruction or free intraperitoneal air. There are a few prominent lymphnodes in the pelvic sidewall which are unchanged. No acute osseousabnormality. There is a 9 mm calculus in the left lower renal pole causing nosignificant hydronephrosis. There is no ureteral calculus. There is nocalculus in the urinary bladder. The prostate is enlarged, measuringabout 5.6 cm in transverse dimension and 4.7 cm in AP dimension. There hanh small round 7 mm hypodense region in the posterior aspect of theprostate of uncertain significance. There are a few renal cysts. Thereis no enhancing renal mass. There is no definite urinary bladder mass.The opacified portions of the renal collecting systems and ureters areunremarkable. IMPRESSION: 1. There is a 9 mm nonobstructing calculus in the inferior left renalpole. 2. Prostatomegaly. There is a small hypodense region in the base of theprostate of uncertain clinical significance. At minimum, correlation withPSA is recommended. 3. Fatty infiltration of the liver. Referred By: SHAWANDA BERGMAN Interpreted By: Kane Walsh MD, 04/04/2025 6:31 AM us Shawanda Bergman MD CT Final Result * COLONOSCOPY GENERIC (02/08/2021) 02/08/2021 Narrative 02/08/2021 Ordered by an unspecified provider. us Documents Scanned SCANNING Final Result from Last 3 Months or Most Recently Relevant to Health Maintenance Insurance Advance Directives * Full Code (Latest Code Status on File) Date Activated Date Inactivated Comments 01/27/2022 6:08 AM 01/31/2022 2:18 PM Care Teams Electric Motor Winders Assembler Relationship Specialty [place] [address] [place] [address] PCP - General FAMILY PRACTICE 02/16/21 Milad Gong MD 12/02/15 Ananda Rhodes MD [facility]. [address] [address] [place] Equal Employment Opportunity Officer CARDIOVASCULAR DISEASE 12/02/15
--- OUTSIDE RECORDS SUMMARY | 2025-04-17 17:23 | XMS_ITS | Encounter Summary ---
Author Organization [facility] Address [address] [place] [address] Care Team Providers Care Sample Carrier Name Role Phone Milad Gong MD Primary Care Provider UnaMilad Phoenix MD Unavailable Unavailable Ananda Rhodes MD Unavailable [phone] None, Provider Primary Care Provider Unavaila Rudy Hunter MD Primary Care Provider [phone] Encounter Details Date Type Department Care Team (Late st Contact Info) Description 05/31/2016 Abstract [facility] AT [address] [address] Gustavo Andrews MA Social History Tobacco Use Types Packs/Day Years Used Date Smoking Tobacco: Never Assessed Sex and Gender Information Value Date Recorded Sex Assigned at Male 01/27/2022 7:47 AM CDT Legal Sex Male 10:50 AM TIGHT COOPER Gender Identity Male 01/27/2022 7:47 AM CDT Sexual Orientation Not on file documented as of this encounter Plan of Treatment Not on file documented as of this encounter Procedures Procedure Name Priority Date/Time Associated Diagnosis Comments CBC (OUTSIDE LAB) Routine 07/28/2016 BASIC METABOLIC PANEL Routine 07/28/2016 FOLATE (OUTSIDE LAB) Routine 05/06/2016 CBC (OUTSIDE LAB) Routine 05/06/2016 VITAMIN B-12 Routine 05/06/2016 AST/SGOT Routine 05/06/2016 PROSTATE SPECIFIC ANTIGEN,TOTAL Routine 05/06/2016 BASIC METABOLIC PANEL Routine 05/06/2016 LIPID PANEL Routine 05/06/2016 HEMOGLOBIN, GLYCOSYLATED Routine 05/06/2016 THYROXINE, FREE (FT4) Routine 05/06/2016 THYROID STIM HORMONE TSH Routine 05/06/2016 VITAMIN D, 25 OH Routine 05/06/2016 MAGNESIUM Routine 05/06/2016 ALT/SGPT Routine 05/06/2016 CBC (OUTSIDE LAB) Routine 01/26/2015 BASIC METABOLIC PANEL Routine 01/26/2015 documented in this encounter Results * BASIC METABOLIC PANEL (07/28/2016) SODIUM S/P/B 140 POTASSIUM S/P/B 3.6 CO2 25 CHLORIDE S/P/B 106 GLUCOSE 106 CALCIUM S/P/B 9.6 BUN 27 CREATININE S/P/B 1.05 0.7 - 1.3 EGFR NON-AFR. AMER. >60 07/28/2016 us [facility] Abstract LABORATORY Final Result * CBC (OUTSIDE LAB) (07/28/2016) WBC 9.9 HGB 12.6 HCT 37.3 PLT 372 07/28/2016 us Doc [facility] Abstract LAB-OUTSIDE/ABSTRACTED Edite d Result - Final * MAGNESIUM (05/06/2016) Pathologist [facility] MAGNESIUM 2.2 05/06/2016 us Doc [facility] Abstract LABORATORY Final Result * ALT/SGPT (05/06/2016) ALT 24 05/06/2016 us Doc [facility] LABORATORY Final Result * AST/SGOT (05/06/2016) Pathologist [facility] AST 24 05/06/2016 us Doc [facility] Abstract LABORATORY Final Result * VITAMIN D, 25 OH (05/06/2016) Pathologist [facility] VITAMIN D 25 HYDROXY S/P/B 29.5 05/06/2016 us Doc [facility] Abstract LABORATORY Final Result * PROSTATE SPECIFIC ANTIGEN,TOTAL (05/06/2016) Pathologist [facility] PSA 1.3 05/06/2016 us Doc [facility] LABORATORY Final Result * THYROXINE, FREE (FT4) (05/06/2016) Pathologist [facility] FREE T4 0.86 05/06/2016 us Doc [facility] Abstract LABORATORY Final Result * THYROID STIM HORMONE, TSH (05/06/2016) Pathologist [facility] TSH 1.640 05/06/2016 us Doc [facility] LABORATORY Final Result * HEMOGLOBIN, GLYCATED (05/06/2016) HGB A1C 5.7 05/06/2016 us Doc [facility] LABORATORY Final Result * FOLATE (OUTSIDE LAB) (05/06/2016) FOLATE 11.6 05/06/2016 us Doc [facility] Abstract LAB-OUTSIDE/ABSTRACTED Final Result * VITAMIN B-12 (05/06/2016) VITAMIN B12 S/P/B 412 05/06/2016 us Doc [facility] Abstract LABORATORY Final Result * LIPID PANEL (05/06/2016) Pathologist [facility] CHOLESTEROL 214 HDL 32 TRIGLYCERIDES 260 LDL (CALCULATED) 130 05/06/2016 us Doc [facility] LABORATORY Final Result * BASIC METABOLIC PANEL (05/06/2016) SODIUM S/P/B 144 POTASSIUM S/P/B 4.4 CO2 22 CHLORIDE S/P/B 104 GLUCOSE 98 CALCIUM S/P/B 9.7 BUN 22 CREATININE S/P/B 1.17 EGFR AFR. AMER. 77 EGFR NON-AFR. AMER. 66 05/06/2016 [facility] Doc [facility] LABORATORY Final Result * CBC (OUTSIDE LAB) (05/06/2016) WBC 6.5 HGB 14/7 HCT 43 PLT 192 05/06/2016 us Doc [facility] Abstract LAB-OUTSIDE/ABSTRACTED Edite d Result - Final * BASIC METABOLIC PANEL (01/26/2015) SODIUM S/P/B 136 POTASSIUM S/P/B 4.1 CO2 26 CHLORIDE S/P/B 99 GLUCOSE 175 CALCIUM S/P/B 9.1 BUN 18 CREATININE S/P/B 0.77 EGFR AFR. AMER. >60 EGFR NON-AFR. AMER. >60 01/26/2015 us Doc [facility] Abstract LABORATORY Final Result * CBC (OUTSIDE LAB) (01/26/2015) WBC 18.9 HGB 13.7 HCT 38.6 PLT 197 01/26/2015 us Doc [facility] Abstract LAB-OUTSIDE/ABSTRACTED Edite d Result - Final documented in this encounter Visit Diagnoses Not on filedocumented in this encounter Additional Health Concerns Infection Onset Date Last Indicated Resolved Time COVID-19 Rule Out 01/28/2022 01/28/2022 01/29/2022 10:01 AM CDT COVID-19 Rule Out 02/10/2022 02/10/2022 02/11/2022 9:09 PM CDT COVID-19 Rule Out 06/29/2022 06/29/2022 06/29/2022 9:51 AM TIGHT COOPER documented as of this encounter Care Teams Sample Carrier Relationship Specialty Start Date End Date Milad Gong MD PCP - General INTERNAL MEDICINE 12/02/15 12/06/20 Ciera Prince MD PCP - General 12/07/20 02/15/21 [place] [address] [place] [address] PCP - General FAMILY PRACTICE 02/16/21 Milad Gong MD 12/02/15 Ananda Rhodes MD [facility]. [address] [address] [place] [employer] Chair CARDIOVASCULAR DISEASE 12/02/15 documented as of this encounter
--- OUTSIDE RECORDS SUMMARY | 2025-04-17 17:23 | XMS_ITS | Clinical Summary ---
Author Organization [facility] Address [address] [place] [address] Phone Care Team Providers Care Account Management Assistant Name Role Phone Milad Gong MD Primary Care Provider [phone] Allergies Active Allergy Reactions Criticality Noted Date Comments Juan Inhibitors Angioedema High 03/04/2022 Atorvastatin Muscle Pain Low 04/28/2022 Meperidine Anaphylaxis High 12/23/2016 Medications omeprazole (PriLOSEC) 10 mg Capsule, Delayed Release(E.C.) Take 40 mg by mouth daily. Active montelukast (SINGULAIR) 10 mg tablet Take 10 mg by mouth daily at bedtime. Active tamsulosin (FLOMAX) 0.4 mg capsule Take 0.4 mg by mouth daily. Active finasteride (PROSCAR) 5 mg tablet Take 5 mg by mouth daily. Active budesonide-formo terol (SYMBICORT) 160-4.5 mcg/actuation HFA Aerosol Inhaler Take 2 Puffs by inhalation 2 times daily. Active albuterol HFA 90 mcg inhaler Take 2 Puffs by inhalation every 6 hours as needed for Shortness of Breath. Active ipratropium-albu terol (DUONEB) 0.5 mg-3 mg(2.5 mg base)/3 mL Solution for Nebulization Take 3 mL by inhalation. Active ondansetron (ZOFRAN ODT) 4 mg Tablet, Rapid Dissolve Take 4 mg by mouth every 8 hours as needed for Nausea/Emesis Dissolve tablet on top of tongue, then swallow with saliva. . Active COQ10, UBIQUINOL, ORAL Take 200 mg by mouth. Active cholecalciferol, Vitamin D3, 2,000 unit Tablet Take by mouth. Activ e cetirizine (ZyrTEC) 10 mg tablet Take 10 mg by mouth daily. Active bromelains (BROMELAIN ORAL) Take 800 mg by mouth daily. Active rye grass extract-querceti n 500-250 mg Tablet Take by mouth. Activ e zinc gluconate 50 mg Tablet Take 50 mg by mouth daily. Active coenzyme Q10 200 mg Capsule Take 200 mg by mouth daily. Active Repatha SureClick 140 mg/mL Pen Injector INJECT 1 ML SUBCUTANEOUSLY EVERY TWO WEEKS 6 mL 3 01/21/20 25 Active gemfibroziL (LOPID) 600 mg tablet Take 1 Tablet (600 mg) by mouth 2 times daily. 180 Tablet 3 02/12/20 25 Active ezetimibe (ZETIA) 10 mg tablet Take 1 Tablet (10 mg) by mouth daily. 90 Tablet 3 02/12/20 25 Active amLODIPine (NORVASC) 10 mg tablet Take 1 Tablet (10 mg) by mouth daily. 90 Tablet 3 02/12/20 25 Active Active Problems Problem Noted Date Diagnosed Date Shortness of breath on exertion 12/27/2016 History of pulmonary embolism 12/27/2016 Obstructive sleep apnea on CPAP 12/27/2016 Chest pain 12/27/2016 Encounters Date Type Department Care Team Description 03/04/2025 External Device Data ST[facility] ABSTRACTION Provider, Abstract 02/18/2025 External Device Data ST[facility] ABSTRACTION Provider, Abstract 02/11/2025 11:15 AM CDT Office Visit [facility] [phone] [place] [address] Eliezer Guardado MD Coronary artery disease involving [place] coronary artery of [place] heart without angina pectoris (Primary Dx); Mixed hyperlipidemia; Essential hypertension 02/11/2025 Telephone [facility] [place] [address] [place] [address] Eliezer Guardado MD lipid order 01/17/2025 Refill [facility] [phone] [place] [address] Eliezer Guardado MD 01/17/2025 Refill [facility] [address] [place] [address] Eliezer Guardado MD from Last 3 Months Family History Medical History Relation Name Comments Hypertension Brother Heart Disease Father Hypertension Father Bronchitis Mother Emphysema Mother Cancer Paternal Grandmother colon Diabetes Sister Hypertension Sister Asthma Neg Hx Lung Cancer Neg Hx Mesothelioma Neg Hx Relation Name Status Comments Brother Father Mother Paternal Grandmother Sister Social History Tobacco Use Types Packs/Day Years Used Date Smoking Tobacco: Former Cigars Tobacco Cessation:Counseling Given: No Alcohol Use Standard Drinks/Week Comments Yes 2 (1 standard drink = 0.6 oz pur e alcohol) occasionally Sex and Gender Information Value Date Recorded Sex Assigned at Not on file Legal Sex Male 1:19 PM CDT Gender Identity Not on file Sexual Orientation Not on file 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 Not on file Last Filed Vital Signs Vital Sign Reading Time Taken Comments Blood Pressure 120/80 02/11/2025 10:43 AM CDT Pulse 73 02/11/2025 10:43 AM CDT Temperature 36.1 C (97 F) 04/18/2022 10:31 AM CDT Respiratory Rate 18 04/18/2022 12:13 PM CDT Oxygen Saturation 95% 02/11/2025 10:43 AM CDT Inhaled Oxygen Concentration - - Weight 98 kg (216 lb) 02/11/2025 10:43 AM CDT Height 177.8 cm (5' 10) 02/11/2025 10:43 AM CDT Body Mass Index 30.99 02/11/2025 10:43 AM CDT Plan of Treatment Upcoming Encounters Date Type Department Care Team (Late st Contact Info) Description 02/10/2026 11:15 AM CDT Office Visit [facility] [phone] [place] [address] Eliezer Guardado MD [address] [place] [address] Health Maintenance Due Date Last Done Comments DTAP/TDAP/TD VACCINES (1 - Tdap) 1972 FIT-DNA Q 3 years 1998 FIT/FOBT Q 1 year 1998 Flex Sig/CT Colonography Q 5 years 1998 RSV VACCINE (60+ or ) (1 - Risk 60-74 years 1-dose series) 2013 PNEUMOCOCCAL VACCINE 50+ YEA RS (2 of 2 - PCV) 01/21/2016 01/20/2015 ZOSTER VACCINE (2 of 3) 06/14/2017 04/19/2017 INFLUENZA VACCINE (#1) 2025 , 04/25/2022, 05/26/2021, Additional history exists COVID-19 Vaccine ( - 2024-2 6 season) 2025 05/29/2022, 10/28/2021, 04/08/2021, Additional history exists COLORECTAL SCREENING 08/12/2034 08/12/2024, 02/09/20 Colorectal Cancer Screening 08/12/2034 Medical Devices Implanted Type Area Or First Assist Registered Nurse Device Identifier Shelf Expiration Date Model / Serial / Lot Plate Plate Left: Clavicle Screw Left: Clavicle Insurance [facility] CHOICE [id number] RX [employer] RX Member Subscriber Plan / Payer (Ef fective for All Dates) Name:Yamil Schneider Relation to Subscriber:Self Name:Yamil Schneider Payer ID:Not on file Type:RX Commercial Address: [address] Advance Directives For more information, please contact: [phone] * Full Code (Latest Code Status on File) Date Activated Date Inactivated Comments 01/06/2017 10:38 AM 01/06/2017 6:15 PM Care Teams Account Management Assistant Relationship Specialty Start Date End Date Milad Gong MD [address] [place] [address] PCP - General Internal Medicine 12/23/16
--- OUTSIDE RECORDS SUMMARY | 2025-04-17 17:23 | XMS_ITS | Clinical Summary ---
Author Organization [facility] Address [address] [place] [address] Care Team Providers Care Social Media Campaign Manager Name Role Phone Rudy Mcintyre MD Primary Care Provider [phone] Allergies Active Allergy Reactions Criticality Noted Date Comments Juan Inhibitors Angioedema High 01/27/2022 Codeine Vomiting Low 06/22/2016 ONLY TYLENOL 3 CAUSES A PROBLEM (NAUSEA & VOMITING)- CAN TAKE TYLENOL AND CODEINE IN COUGH SYRUP AND IS OK Meperidine Anaphylaxis High 04/30/2013 Mold Cough,Shortness of breath High 08/02/2021 Triggers his asthma Morphine Nausea And Vomiting 06/02/2016 Patient denies Quinapril-Hydrochloro thiazide Angioedema High 01/27/2022 Pt states he isn't allergic to hctz Xbutiup-Vts-Dfz Reductase Inhibitors Muscle pain Medium 06/11/2018 myalgia Medications albuterol HFA (PROVENTIL HFA,VENTOLIN HFA,PROAIR HFA) 90 mcg/actuation inhaler USE 2 INHALATIONS BY MOUTH EVERY 6 HOURS NEEDED FOR WHEEZING 12/20/19 23 Active amLODIPine (NORVASC) 10 mg tablet Take 1 tablet (10 mg total) by mouth daily 03/24/20 22 Active aspirin 325 mg enteric coated tablet Take 2 tablets (650 mg total) by mouth every 4 (four) hours as needed Active budesonide-formote roL (SYMBICORT) 160-4.5 mcg/actuation inhaler Inhale 2 puffs 2 (two) times a day Active cetirizine (ZyrTEC) 10 mg tablet Take 1 tablet (10 mg total) by mouth daily as needed Active cholecalciferol (VITAMIN D-3) 2000 unit tablet Take 50 mcg by mouth daily 06/02/20 16 Active cyclobenzaprine (FLEXERIL) 5 mg tablet Take 1 tablet (5 mg total) by mouth 3 (three) times a day 07/15/19 20 Active famotidine (PEPCID) 20 mg tablet Take 1 tablet (20 mg total) by mouth 2 (two) times a day 06/13/20 18 Active finasteride (PROSCAR) 5 mg tablet Take 1 tablet (5 mg total) by mouth daily 10/08/19 23 Active fluticasone propionate (FLONASE) 50 mcg/actuation nasal spray 2 sprays daily as needed 08/01/19 13 Active gemfibroziL (LOPID) 600 mg tablet Take by mouth 10/08/19 23 Active ipratropium-albute roL (DUO-NEB) 0.5-2.5 mg/3 mL nebulizer solution Inhale 3 mL every 4 (four) hours as needed 10/08/19 23 Active metFORMIN (GLUCOPHAGE) 1,000 mg tablet Take 1 tablet (1,000 mg total) by mouth Active metoprolol tartrate (LOPRESSOR) 50 mg immediate release tablet Take 1 pill the night before your CTA. Take 1 pill the morning of your CTA. 03/04/20 22 Active ondansetron ODT (ZOFRAN-ODT) 4 mg disintegrating tablet DISSOLVE 1 TABLET ON THE TONGUE EVERY 8 HOURS NEEDED FOR NAUSEA Strength: 4 mg 02/19/20 13 Active oxymetazoline 0.05 % nasal spray 2 sprays 2 (two) times a day as needed Active Active Problems Problem Noted Date Diagnosed Date Asthma 02/15/2023 Angioedema 01/27/2022 Benign prostatic hyperplasia without lower urinary tract symptoms 02/21/2021 Primary insomnia 02/21/2021 Pure hypercholesterolemia 02/21/2021 Esophagitis 08/21/2019 Candidiasis of esophagus 07/05/2019 Overview (02/15/2023): Added automatically from request for surgery [id number] Gastroesophageal reflux disease without esophagi tis 07/05/2019 Overview (02/15/2023): Added automatically from request for surgery [id number] Chest pain 12/27/2016 Obstructive sleep apnea on CPAP 12/27/2016 Shortness of breath on exertion 12/27/2016 Hypertriglyceridemia 06/01/2011 Overview (02/15/2023): Osteoarthritis 05/04/2011 Overview (02/15/2023): Primary hypertension 05/04/2011 Overview (02/15/2023): Surgical History Surgery Date Site/Laterality Comments FLUORO GUIDED INJECTION SHOULDER LEFT 03/03/2023 Lef t FLUORO GUIDED INJECTION SHOULDER LEFT 06/21/2023 Lef t Social History Tobacco Use Types Packs/Day Years Used Date Smoking Tobacco: Unknown Tobacco Cessation:Counseling Given: Not Answered Personal Safety Answer Date Recorded Have you ever been in or are you currently in a harmful physical or emotional relationship or is someone making you feel afraid or unsafe? 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 Gender Identity Not on file Sexual Orientation Not on file Obstetrics History Last Filed Vital Signs Vital Sign Reading Time Taken Comments Blood Pressure 141/91 03/03/2023 9:52 AM CDT Pulse 72 03/03/2023 9:52 AM CDT Temperature - - Respiratory Rate 18 03/03/2023 9:52 AM CDT Oxygen Saturation 96% 03/03/2023 9:52 AM CDT Inhaled Oxygen Concentration - - Weight 93 kg (205 lb) 04/25/2023 10:01 AM CDT Height 177.8 cm (5' 10) 04/25/2023 10:01 AM CDT Body Mass Index 29.41 04/25/2023 10:01 AM CDT Plan of Treatment Health Maintenance Due Date Last Done Comments Colon Cancer Screening-Colonoscopy 1955 Depression Screening 1955 Hepatitis C Screening 1955 DTaP/Tdap/Td Vaccine (1 - Tdap) 1964 Hepatitis B Screening 12/31/1971 Pneumococcal vaccine 65+ (2 of 2 - PCV) 01/21/2016 01/20/2015 Zoster Vaccine (2 of 3) 06/14/2017 04/19/2017 Well Visit 65+ 2018 Fall Risk Assessment 03/03/2024 03/03/2023 Covid-19 Vaccine (6 - 2024-2 6 season) 2025 05/29/2022, 10/28/2021, 04/08/2021, Additional history exists Influenza Vaccine (#1) 2025 , 04/25/2022, 05/26/2021, Additional history exists Abdominal Aortic Aneurysm (A AA) Screen Completed 04/21/2022, 03/28/2022, 12/07/2020 Insurance [facility] Care Teams Social Media Campaign Manager Relationship Specialty [place] [address] [address] [place] [address] PCP - General Family Practice 02/15/23
--- OUTSIDE RECORDS SUMMARY | 2025-04-17 17:23 | XMS_ITS | Data Portability ---
Author Organization [facility] (11) Address [address] [facility] [address] [place] [address] Assessment No assessment recorded. Plan of Treatment Reminders Order Date Submit Date Provider Last Modified By Organization Details Last Modified Time Details Appointments Ship Supplies 2024 08:20A M Tesson Garrett D[facility] Not available Not available Not available Ship Supplies 2024 08:20A M Tesson Garrett [facility] Not available Not available Not available Ship Supplies 2024 08:30A M Tesson Garrett [facility] Not available Not available Not available Ship Supplies 2025 08:00A M Tesson Garrett [facility] Not available Not available Not available Ship Supplies 2025 08:10A M Tesson Garrett D[facility] Not available Not available Not available Ship Supplies 2025 08:00A M Tesson Garrett D[facility] Not available Not available Not available Lab None recorded. Referral None recorded. Procedures None recorded. Surgeries None recorded. Imaging None recorded. Medication Orders None recorded. Patient TargetsNo targets recorded. Patient InstructionsNo instructions recorded. Reason for Referral None Reported. Procedures Surgical History Date Name Laterality Status Provider Name and Address Organization Details Recorded Time 04/24/2023 Sleep Study completed Kurt Anitagalanadeem [facility] 04/25/2023 17:34:17 Imaging Results None recorded. Procedure Notes None recorded. Medical Equipment None Reported. Medications Name Sig Start Date Stop Date Status Note LastModified by Organization Details LastModified Time doxycycline hyclate 100 mg capsule TAKE 1 CAPSULE BY MOUTH TWICE DAILY FOR 10 DAYS active Not Available Not Available No t Available ipratropium 0.5 mg-albuterol 3 mg (2.5 mg base)/3 mL nebulization soln active Not Available Not Available Not Available azithromycin 250 mg tablet TAKE 2 TABLETS BY MOUTH ON DAY 1, AND THEN TAKE 1 TABLET BY MOUTH ONCE A DAY ON DAY 2 THROUGH DAY 5 active Not Available Not Available No t Available prednisone 20 mg tablet TAKE 2 TABLETS BY MOUTH ONCE DAILY FOR 5 DAYS active Not Available Not Available No t Available prednisone 5 mg tablet TAKE 6 TABLETS BY MOUTH ONCE DAILY FOR 2 DAYS THEN 5 ONCE DAILY FOR 2 DAYS THEN 4 ONCE DAILY FOR 2 DAYS THEN 3 ONCE DAILY FOR 2 DAYS THEN 2 ONCE DAILY FOR 2 DAYS THEN 1 ONCE DAILY FOR 4 DAYS active Not Available Not Available N ot Available metronidazol e 500 mg tablet TAKE 1 TABLET BY MOUTH EVERY 6 HOURS FOR 7 DAYS active Not Available Not Available No t Available ciprofloxaci n 500 mg tablet TAKE 1 TABLET BY MOUTH EVERY 12 HOURS FOR 7 DAYS active Not Available Not Available N ot Available sulfamethoxa zole 800 mg-trimethop rim 160 mg tablet TAKE 1 TABLET BY MOUTH TWICE DAILY FOR 10 DAYS active Not Available Not Available No t Available sildenafil 100 mg tablet active Not Available Not Available Not Available tamsulosin 0.4 mg capsule active Not Available Not Available Not Available meclizine 25 mg tablet TAKE 1 TABLET BY MOUTH THREE TIMES DAILY NEEDED active Not Available Not Available No t Available amlodipine 10 mg tablet active Not Available Not Available Not Available gemfibrozil 600 mg tablet active Not Available Not Available Not Available pantoprazole 40 mg tablet,delay ed release active Not Available Not Available N ot Available metoprolol tartrate 50 mg tablet TAKE 1 PILL BY MOUTH THE NIGHT BEFORE YOUR CTA. THEN TAKE 1 PILL THE MORNING OF YOUR CTA active Not Available Not Available Not Available montelukast 10 mg tablet active Not Available Not Available Not Available ibuprofen 600 mg tablet TAKE 1 TABLET BY MOUTH THREE TIMES DAILY NEEDED FOR PAIN active Not Available Not Available No t Available scopolamine 1 mg over 3 days transdermal patch APPLY 1 PATCH TOPICALLY DIRECTED EVERY 3 DAYS active Not Available Not Available No t Available methylpredni solone 4 mg tablets in a dose pack TAKE 6 TABLETS ON DAY 1 THEN TAKE 5 TABLETS ON DAY 2 THEN TAKE 4 TABLETS ON DAY 3 THEN TAKE 3 TABLETS ON DAY 4 THEN TAKE 2 TABLETS ON DAY 5 THEN TAKE 1 TABLET ON DAY 6. TAKE ALL DOSES WITH FOOD. active Not Available Not Available N ot Available albuterol sulfate HFA 90 mcg/actuatio n aerosol inhaler INHALE 2 PUFFS BY MOUTH EVERY 4 HOURS NEEDED FOR WHEEZING active Not Available Not Available No t Available finasteride 5 mg tablet active Not Available Not Available Not Available azithromycin 500 mg tablet TAKE 1 TABLET BY MOUTH ONCE DAILY active Not Available Not Available No t Available ezetimibe 10 mg tablet TAKE 1 TABLET BY MOUTH ONCE DAILY active Not Available Not Available No t Available rosuvastatin 20 mg tablet TAKE 1 TABLET BY MOUTH ONCE DAILY AT BEDTIME active Not Available Not Available No t Available Symbicort 160 mcg-4.5 mcg/actuatio n HFA aerosol inhaler INHALE 2 PUFFS BY MOUTH TWICE DAILY active Not Available Not Available No t Available Symbicort 80 mcg-4.5 mcg/actuatio n HFA aerosol inhaler active Not Available Not Available Not Available GaviLyte-N 420 gram oral solution USE DIRECTED PROCEDURE DATE 07/22/24 active Not Available Not Available No t Available Repatha SureClick 140 mg/mL subcutaneous pen injector INJECT CONTENTS OF 1 ML SUBCUTANEOU SLY EVERY TWO WEEKS active Not Available Not Available No t Available Vitals None Recorded Social History None recorded. Functional Status None recorded. Mental Status None recorded. Family History Nothing Reported. Medical History No medical history recorded. Past Encounters Encounter ID Performer Location Encounter Start Date Encounter Closed Date Diagnosis/Indication Diagnosis SNOMED-CT Code Diagnosis ICD10 Code Diagnosis IMO Codes Diagnosis Note [id number] [facility] (11) [address] [address] 02/27/2023 16:09:08 02/27/2023 20:07:40 [id number] [facility] [place], [facility] CSI (11) [address] [address] 04/24/2023 12:12:58 04/25/2023 17:17:32 Obstructive sleep apnea of adult 1856186037 103 G47.33 [id number] [facility] (11) [address] [address] 06/08/2023 11:54:52 06/08/2023 12:54:55 Obstructive sleep apnea of adult 4811573751 103 G47.33 [id number] [facility] (11) [address] [address] 07/10/2023 11:52:10 07/10/2023 11:54:24 [id number] [facility] CSI (11) [address] [facility] [address] [place] [address] 01/01/2024 12:58:47 01/02/2024 17:08:34 Obstructive sleep apnea of adult 5856198053 103 G47.33 [id number] [facility] CSI (11) [address] [facility] [address] [place] [address] 01/17/2024 10:02:32 01/17/2024 10:02:52 Obstructive sleep apnea of adult 1312358263 103 G47.33 [id number] [facility] CSI (11) [address] [facility] [address] [place] [address] 02/01/2024 10:21:48 02/01/2024 10:22:15 Obstructive sleep apnea of adult 4488784390 103 G47.33 [id number] [facility] CSI (11) [address] [facility] [address] [place] [address] 03/11/2024 10:52:19 03/11/2024 10:52:29 Obstructive sleep apnea of adult 3135457731 103 G47.33 [id number] [facility] CSI (11) [address] [facility] [address] [place] [address] 04/04/2024 09:28:44 04/05/2024 17:10:38 Obstructive sleep apnea of adult 4654906540 103 G47.33 [id number] [facility] CSI (11) [address] [facility] [address] [place] [address] 05/07/2024 11:22:36 05/07/2024 11:24:15 Obstructive sleep apnea of adult 7135661325 103 G47.33 [id number] [facility] CSI (11) [address] [facility] [address] [place] [address] 06/14/2024 14:50:50 06/17/2024 16:50:26 Obstructive sleep apnea of adult 0438453755 103 G47.33 [id number] [facility] CSI (11) [address] [facility] [address] [place] [address] 07/09/2024 08:59:01 07/09/2024 16:57:32 Obstructive sleep apnea of adult 7256516332 103 G47.33 [id number] [facility] [place], [facility] (45) [address] [place] [address] 08/08/2024 09:23:39 08/09/2024 11:57:47 Obstructive sleep apnea of adult 9142730523 103 G47.33 Health Concerns Section Related Observation LastModified by Organization Detai ls LastModified Time None Recorded Concern Status LastModified by Organization Details LastModified Time None Recorded Advance Directives Directive None Recorded Payers Insurance Date Sequence Insurance Name Policy Number Policy Eng Covered Member ID Eng Member ID Guarantor Name 02/21/2023 1 [facility] [id number] Rylee Lin [id number] Yamil Schneider 04/11/2025 1 [id number] Rylee Lin [id number] Yamil Schneider
--- OUTSIDE RECORDS SUMMARY | 2025-04-17 17:23 | XMS_ITS | Encounter Summary ---
Author Organization [facility] Address [address] [place] [address] Care Team Providers Care Eligibility Analyst Name Role Phone Milad Gong MD Primary Care Provider Unava Milad Curiel MD Unavailable Unavailable Ananda Rhodes MD Unavailable [phone] None, Provider Primary Care Provider Unavaila Rudy Hunter MD Primary Care Provider [phone] Encounter Details Date Type Department Care Team (Late st Contact Info) Description 11/08/2016 Abstract [facility] CONVERSION [address] [place], [place] [id number] , Generic Conversion, Social History Tobacco Use Types Packs/Day Years Used Date Smoking Tobacco: Never Smokeless Tobacco: Never Alcohol Use Standard Drinks/Week Comments Yes 0 (1 standard drink = 0.6 oz pur e alcohol) occ Sex and Gender Information Value Date Recorded Sex Assigned at Male 01/27/2022 7:47 AM CDT Legal Sex Male 10:50 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 Gender Identity Male 01/27/2022 7:47 AM CDT Sexual Orientation Not on file 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 Not on file documented as of this encounter Plan of Treatment Not on file documented as of this encounter Visit Diagnoses Not on filedocumented in this encounter Additional Health Concerns Infection Onset Date Last Indicated Resolved Time COVID-19 Rule Out 01/28/2022 01/28/2022 01/29/2022 10:01 AM CDT COVID-19 Rule Out 02/10/2022 02/10/2022 02/11/2022 9:09 PM CDT COVID-19 Rule Out 06/29/2022 06/29/2022 06/29/2022 9:51 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 documented as of this encounter Care Teams Eligibility Analyst Relationship Specialty Start Date End Date Milad Gong MD PCP - General INTERNAL MEDICINE 12/02/15 12/06/20 None, MD Ciera PCP - General 12/07/20 02/15/21 [place] [address] [place] [address] PCP - General FAMILY PRACTICE 02/16/21 Milad Gong MD 12/02/15 Ananda Rhodes MD [facility]. [address] [address] [place] Quill Worker CARDIOVASCULAR DISEASE 12/02/15 documented as of this encounter
== END 2025-04-17 15:15 | disposition home or self-care (01) ==
PROVIDERS: PCP Family Medicine; Visit Provider Urology
DX: N20.1 Calculus of ureter (principal); I10 Essential (primary) hypertension; Z01.818 Encounter for other preprocedural examination
CPT/HCPCS: 36415; 85610; 85730; 87086; 93005

== ENCOUNTER 2025-04-25 02:15 | Day surgery (SDC) | payer OTHER, SELFPAY ==
--- OUTSIDE RECORDS SUMMARY | 2019-07-15 03:52 | XMS_ITS | Continuity of Care Document ---
Author Organization [facility] Address [address] [place] [address] Phone Care Team Providers Care Assembler Installer General Name Role Phone Rom Valdes MD Unavailable [...] Depo Medrol Methylprednisolone 40 MG inj Inject sngl/geophysics scientist trig pt 1-2 msclgrp Office/outpatient visit,est, mod [...] Date Provider Providers Copied on Encounter [facility] [employer] [facility], [address], [id number], [place] [phone] [facility] [employer] [facility] No Information 0 Lucio Cueto. [address] [facility], [facility] [address], [place], [place], [id number] , [place]. tel: [phone] [facility] [employer] [facility], [address], [id number], [place] [phone] [facility] [employer] [facility] Complete rotatr-cuff tear/ruptr of r shoulder, not trauma 0 Lucio Cueto. [address] [facility], [facility] [address], [place], [place], [address] , [place]. tel:[phone] [facility] [employer] [facility], [address] [address], [place], [place], [address], [place] [phone] [facility] [employer] [facility] bilateral shoulders (chief complaint) Complete rotatr-cuff tear/ruptr of left shoulder, not traumaComplete rotatr-cuff tear/ruptr of r shoulder, not trauma 9 Lucio Cueto. [address] [facility], [address] [address], [place], [place], [address] , [place]. tel: [phone] Office/outpa tient visit,est, raya [facility], [address], [id number], [place] [phone] [facility] [employer] [facility] kristin shoulder (chief complaint) Incomplete rotatr-cuff tear/ruptr of r shoulder, not traumaCervicalgia 9 Pia Barros. [address] [facility], [address], [place], [place], [address] , [place]. tel:[phone] Office/outpa tient visit,[facility], [address] [facility] [address], [place], [place], [id number], [place] tel:[phone] [facility] left shoulder (chief complaint) Impingement syndrome of left shoulderIncomplet e rotatr-cuff tear/ruptr of r shoulder, not trauma 9 Pia Barros. [address] [facility], [address], [place], [place], [address] , [place]. tel:[phone] Referring Provider: Rom Burrell, [address], [place], [address] . tel:[phone] [facility], [address] [address], [place], [place], [address], [place] tel:[phone] [facility] Pain in left shoulder 9 [facility]. [address], [place], [place], [address] , [place]. tel:[phone] Referring Provider: Rom Burrell, [address], [place], [address] . tel:[phone] Office/outpa tient visit,[facility], [address] [facility] [address], [place], [place], [id number], [place] tel:[phone] [facility] Right shoulder (chief complaint) Complete rotatr-cuff tear/ruptr of r shoulder, not traumaComplete rotatr-cuff tear/ruptr of left shoulder, not trauma 9 Lucio Cueto. [address] [facility], [address], [place], [place], [address] , [place]. tel:[phone] [facility], [address] [address], [place], [place], [address], [place] tel:[phone] [facility] Right shoulder (chief complaint) Complete rotatr-cuff tear/ruptr of r shoulder, not trauma 9 Lucio Cueto. [address] [facility], [facility] [address], [place], [place], [address] , [place]. tel: [phone] [facility], [address] [address], [place], [place], [address], [place] [phone] [facility] r shoulder (chief complaint) Complete rotatr-cuff tear/ruptr of r shoulder, not trauma 9 Lucio Cueto. [address] [facility], [address] [address], [place], [place], [address] , [place]. tel: [phone] [facility], [address], [id number], [place] tel:[phone] [facility] Right shoulder (chief complaint) Complete rotatr-cuff tear/ruptr of r shoulder, not trauma 9 Lucio Cueto. [address] [facility], [address] [address], [place], [place], [address] , [place]. tel: [phone] [facility], [address], [id number], [place] [phone] [facility] Complete rotatr-cuff tear/ruptr of r shoulder, not trauma 9 Lucio Cueto. [address] [facility], [facility] [address], [place], [place], [address] , [place]. tel: [phone] [facility], [address] [address], [place], [place], [address], [place] tel:[phone] [facility] Right shoulder (chief complaint) Complete rotatr-cuff tear/ruptr of r shoulder, not trauma 9 Lucio Cueto. [address] [facility], [facility] [address], [place], [place], [address] , [place]. tel:[phone] [facility], [address], [id number], [place] tel:[phone] [facility] [place] No Information 9 Lucio Cueto. [address] [facility], [facility] [address], [place], [place], [address] , [place]. tel: [phone] [facility], [address] [address], [place], [place], [address], [place] [phone] [facility] [employer] [facility] Complete rotatr-cuff tear/ruptr of r shoulder, not trauma 9 Lucio Cueto. [address], [address] [address], [place], [place], [address] , [place]. tel: [phone] [facility], [address], [id number], [place] [phone] [facility] No Information 9 Lucio Cueto. [address], [address] [address], [place], [place], [address] , [place]. tel: [phone] Office/outpa tient visit,[facility], [address], [id number], [place] [phone] [facility] [employer] [facility] Right Shoulder (chief complaint) Complete rotatr-cuff tear/ruptr of r shoulder, not trauma 9 Lucio Cueto. [address] [facility], [facility] [address], [place], [place], [address] , [place]. tel: [phone] Family History Family Member Type Diagnosis Age At Onset Father Problem (finding) Hypertension Sister Problem (finding) Diabetes Sister Problem (finding) Hypertension Sister Problem (finding) Seizures Sister Problem (finding) Osteoarthritis Brother Problem (finding) Osteoarthritis Brother Problem (finding) Hypertension Father Problem (finding) Osteoarthritis Father Problem (finding) Cancer, unknown Payers Payer name Insurance type Covered alliance party ID Jonathan ray(s) [facility] [id number] Social History Type Description Quantity Date Captured [...] results of the MRI left shoulder at [facility] on 05/03/2019 which shows mild to moderate [...]
--- OUTSIDE RECORDS SUMMARY | 2023-12-06 04:40 | XMS_ITS | Continuity of Care Document ---
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 Name Role Phone Chloé GORDON MD, Farshad Unavailable Unavailab le Allergies, Adverse Reactions, Alerts Substance Reaction Status Criticality OSWALDO Inhibitors Active No Informatio n MEPERIDINE HCL Active No Informatio n Medications Medication Instructions Dosage Effective Dates (start - stop) Status Comments REPATHA PUSHTRONEX (unknown strength) inject 3.5 milliliter by subcutaneous route every month over via on-body infusor in the abdomen, thigh, or upper arm Not Available - Active EZETIMIBE (unknown strength) take 1 tablet by oral route every day Not Available - Active CHOLEST OFF PLUS (unknown strength) Not Available - Active amlodipine (unknown strength) Not Available - Active GEMFIBROZIL (unknown strength) take 1 tablet by oral route 2 times every day 30 minutes before morning and evening meal Not Available - Active omeprazole (unknown strength) Not Available - Active Systane Ultra 0.4 %-0.3 % eye drops instill 1 by Ophthalmic route every 2 days 1 - Active Livalo 1 mg tablet take 1 tablet by oral route every day 1 MG - Active montelukast 10 mg tablet take 1 tablet by oral route every day in the evening 10 MG - Active tamsulosin 0.4 mg capsule take 1 capsule by oral route every day 1/2 hour following the same meal each day 0.4 MG - Active finasteride 5 mg tablet take 1 tablet by oral route every day 5 MG - Active Zofran 4 mg tablet take 2 tablet by oral route every 8 hours for 2 days as needed - Active Symbicort 160 mcg-4.5 mcg/actuation HFA aerosol inhaler inhale 2 puff by inhalation route 2 times every day in the morning and evening 2.00 puff - Active albuterol sulfate BUCCAL ADH. PATCH as needed - Active rosuvastatin (unknown strength) Not Available - No Longer Active Procedures Procedure Date OFFICE/OUTPATIENT VISIT, EST OFFICE/OUTPATIENT VISIT, EST REFRACTION OFFICE/OUTPATIENT VISIT, EST OPSCPY EXTND RTA DRAW UNI/BI REFRACTION OFFICE/OUTPATIENT VISIT, NEW REFRACTION ADMINISTRATION FEE Advance Directives Directive Yes / No Effective Date File Name No Information Encounters Encounter Description Practice Location Reason(s) For Visit Diagnoses Date Provider Providers Copied on Encounter OFFICE/OUTPAT IENT VISIT, [facility], [address] [place] [address], [id number], tel:[phone] [facility] blurry vision (chief complaint) Age-related nuclear cataract, bilateralOther vitreous opacities, bilateral 4 Chloé Yen. [address], [address] [place] [address], [id number] , [place]. tel:[phone] Referring Provider: Farshad Padgett, [address] [place] [address], [address] . tel:[phone] OFFICE/OUTPAT IENT VISIT, [facility], [address] [place] [address], [id number], tel:[phone] [facility] Blurry Vision (chief complaint) Age-related nuclear cataract, bilateralOther vitreous opacities, bilateral Aug- 3 Chloé Yen. [address], [address] [address], [place], [id number] , [place]. tel:[phone] Referring Provider: Farshad Padgett, [address], [place], [address] . tel:[phone] OFFICE/OUTPAT IENT VISIT, [facility], [address] [place] [address], [place], [id number], tel:[phone] [facility] blurry vision (chief complaint) Dry eyes (chief complaint) Age-related nuclear cataract, bilateralOther vitreous opacities, bilateral Dec- 0 Chloé Yen. [address], [address], [place], [place], [id number] , . tel:[phone] Referring Provider: Milad Gong Jr, [facility] [place], [address]. tel:[phone] OFFICE/OUTPAT IENT VISIT, [facility], [address] [address], [place], [place], [id number], tel:[phone] OPH [facility] blurry vision (chief complaint) Dry eyes (chief complaint) Age-related nuclear cataract, bilateral 8 Chloé Yen. [address], [address], [place], [place], [id number] , [place]. tel:[phone] Referring Provider: Farshad Padgett, [address], [place], [address] . tel:[phone] Family History Family Member Type Diagnosis Age At Onset No Information Payers Payer name Insurance type Covered democrat ID [id number] cory(s) UMR CI [id number] Social History Type Description Quantity Date Captured Comments Alcohol Use Details Unknown Caffeine Use Details Unknown Tobacco Use Status Current non-smoker Smoking Status Never smoker Non-Smoking Tobacco Use Details : No Details Available : No Details Available Sex Male Vital Signs Date / Time: Height Weight BMI Pulse Rate Blood Pressure Temperature Respiratory Rate Body Surface Area Head Circumference Head Circ. Percentile Wt./Bon. Percentile BMI percentile Pulse Ox Inhaled Ox 10:40 AM 71.00 in 92.986 kg (205.00 lbs) 28.5 9 kg/m eter (2) Chief Complaint And Reason For Visit From encounter dated '12/06/2023 09:40'. blurry vision (chief complaint). Description: The 67 year old male presents for evaluation of blurry vision OU. pt states that he has not been happy with his glasses prescription. always has had blurry vision, and trouble reading signs. wants us to check if prescription is correct. wants new prescription. ok w/ $50 fee. Reason For Referral Reason For Referral No Information History Of Present Illness Encounter Date Complaint History Of Prese nt Illness blurry vision The 67 year old male presents for evaluation of blurry vision OU. pt states that he has not been happy with his glasses prescription. always has had blurry vision, and trouble reading signs. wants us to check if prescription is correct. wants new prescription. ok w/ $50 fee. pt unhappy with Mrx Blurry Vision The patient is p resent for evaluation of Blurry Vision. For a few years vision has been decreasing. Distance vision is ok. Has to be closer to see street signs. Has some trouble with glare when night driving. Near vision seems ok with glasses on. Denies floaters and FOL. Eyes are very watery. Uses Systane Ultra BID OU Dry eyes The patient is p resent for evaluation of Dry eyes in the right eye and left eye. It occurs almost all the time. It affects both near and far vision. The condition is significant. Pt c/o OU feel dry almost all the time. Pt uses ATs only. blurry vision The 64 year old male presents for evaluation of blurry vision in the right eye and left eye. It started about 2 year(s) ago. It occurs all the time. It affects both near and far vision. The condition is significant. Pt c/o vision OU is blurry even w/ glasses. Pt uses ATs PRN OU. Denies eye pain/discomfort today. blurry vision The 62 year old male presents for evaluation of blurry vision in the right eye and left eye. It started about 5 years ago. his burry vision occurs all the time. The onset was gradual. It affects distance vision.Last OV with MPD 1997 Dry eyes The patient is p resent for evaluation of Dry eyes in the right eye and left eye. It started about 5 years ago. They dryness occurs during the day. VA is not affected. Patient is using Systane ultra Functional Status Date Functional Assessmen t No Information Instructions Date Instruction Additional Infor mation Impression/Plan Related to Age-r elated nuclear cataract, bilateral Impression/Plan Related to Other vitreous opacities, bilateral Impression/Plan Related to Age-r elated nuclear cataract, bilateral Impression/Plan Related to Other vitreous opacities, bilateral Impression/Plan Related to Age-r elated nuclear cataract, bilateral Impression/Plan Related to Other vitreous opacities, bilateral Impression/Plan Related to Age-r elated nuclear cataract, bilateral Assessments Type Assessment Date assessment Age-related nuclear cataract, bi lateral impression Age-related nuclear cataract, bi lateral: H25.13. Bilateral assessment Other vitreous opacities, bilate ral impression Other vitreous opacities, bilate ral: H43.393 Patient Care Teams Name Effective Dates (start - stop) Status Members No Information
--- NOTE | 2025-04-16 11:09 | PC.NURSE ---
[facility] has started construction of its new state of the art ER which will open Spring 2026. With this, we anticipate parking may be a challenge for some our surgical patients and families. Parking spaces are limited but are available for all Surgical, obstetrics, and ER patients sharing this lot. If you arrive and find you are having a hard time finding a parking space, please note that we understand the challenges, please drive around the hospital and park near Hospital Entrance 1. When you enter this entrance, you can ask a volunteer to direct or take you back to the surgical waiting area to check in. We appreciate everyone?s understanding of these expected challenges while we build for your future. Report to the Outpatient Waiting Room, entrance under the green pavilion located off [address], at time __10:30 AM on date _04/25/25 . Planned Procedure Time: __12:30 PM .? Time changes happen often and if your time is changed the preop area will call you the afternoon before. - You and your visitor will be asked to self-screen and do not enter if you have any COVID symptoms. Please call surgeon if you need to reschedule. - A mask is optional within the hospital at this time. Patients may have clear liquids (water, carbonated beverages, clear teas, apple juice) until 3 hours prior to surgery (9:30 AM)with a maximum of 20 ounces. - No food from midnight until time of surgery and no smoking, or chewing tobacco (or any form of nicotine). No chewing gum, candy or mints. Take only the following medications with a SIP of water on the morning of surgery: __AMLODIPINE,INHALER DO NOT STOP ANY OF YOUR OTHER PRESCRIPTION MEDICATIONS PRIOR TO SURGERY EXCEPT THE FOLLOWING Hold all vitamins and supplements for 3 days per anesthesiologist. Medications to discontinue per physician NONE Please no make-up, nail samoan, hairspray, perfume, deodorant, or body powder the day of surgery.? No jewelry (including any body piercings) or valuables the day of surgery, leave them at home.? Please take a shower or bath the night before, or the morning of, surgery with an antibacterial soap.? Wear comfortable, loose fitting clothing.? Children are encouraged to wear pajamas. - Jewelry must be removed prior to entering the operating room.? Rings and piercings that are not removed may be cut off. - The hospital will not accept responsibility for valuables.? - Please leave all valuables, including medications, at home the day of surgery. If you are going home after surgery, a licensed guard driver must drive you home.? - NO public transportation without another adult if you receive anesthesia. - We recommend that an adult stay with you for 24 hours following discharge. - We also recommend that you do not drive, make important decision, drink alcoholic beverages, or take any drugs that were not prescribed by your health care provider for at least 24 hours after your discharge time. Follow any additional instructions given to you from your surgeon. Telephone instructions given to _PATIENT and asked if any additional questions and then verbalized understanding. Patient advised to call surgeon office or pre surgery nurse liaison [phone] if any additional questions.
[2025-04-16 11:35] VITALS: BMI 29.4
[2025-04-25] VITALS (7 sets, daily range): BP systolic 128–147; BP diastolic 80–97; PULSE 58–72; RESP 11–16; TEMP 36.4–36.5; O2SAT 98–100; BMI 29.8
--- NOTE | ~2025-04-25 | XR_ITS ---
XR abdomen/kub 1V 04/25/2025 10:33 INDICATION: Preop ESWL TECHNIQUE: KUB COMPARISON: None FINDINGS: Bowel gas pattern is normal. There are cholecystectomy clips. There is no evidence of free air, mass, organomegaly, ascites or obstruction. No abnormal calculi are seen. The bones appear intact. There is osteoarthritis of the hips. There is mild lumbar spondylosis. IMPRESSION: 1: No acute abdominal abnormality identified. Reviewed, dictated and finalized at location O.
--- OUTSIDE RECORDS SUMMARY | 2025-04-25 02:19 | XMS_ITS | Encounter Summary ---
Author Organization [facility] Address [address] [place] [address] Care Team Providers Care Sign Designer Name Role Phone Milad Gong MD Primary Care Provider UnaMilad Phoenix MD Unavailable Unavailable Ananda Rhodes MD Unavailable [phone] None, Provider Primary Care Provider Unavaila Rudy Hunter MD Primary Care Provider [phone] Encounter Details Date Type Department Care Team (Late st Contact Info) Description 05/31/2016 Abstract [facility] AT [address] [address] Gustavo Andrews MA Social History Tobacco Use Types Packs/Day Years Used Date Smoking Tobacco: Never Assessed Sex and Gender Information Value Date Recorded Sex Assigned at Male 01/27/2022 7:47 AM CDT Legal 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 [address] [address] [place] Novelty Twister Tender CARDIOVASCULAR DISEASE 12/02/15 documented as of this encounter
--- OUTSIDE RECORDS SUMMARY | 2025-04-25 02:19 | XMS_ITS | Clinical Summary ---
Author Organization [facility] Address [address] [facility] [place] [address] Phone Care Team Providers Care Newspaper Illustrator Name Role Phone Milad Gong MD Primary Care Provider [phone] Allergies Active Allergy Reactions Criticality Noted Date [...] Abstract 02/11/2025 11:15 AM CDT Office Visit [facility] Heart and Vascular - [facility] [address] [place] [address] Eliezer Guardado MD Coronary artery disease involving andreafski coronary artery of andreafski heart without angina pectoris (Primary Dx); Mixed hyperlipidemia; Essential hypertension 02/11/2025 Telephone [facility] Heart and Vascular At [facility] [address] [facility] [address] [place] [address] Eliezer Guardado MD lipid order from Last 3 Months Family History Medical [...] Description 02/10/2026 11:15 AM CDT Office Visit [facility] Heart and Vascular - [facility] [address] [place] [address] Eliezer Guardado MD [address] [facility] [address] [place] [address] Health Maintenance Due Date Last Done Comments DTAP/TDAP/TD VACCINES (1 - Tdap) 1972 FIT-DNA Q 3 years 1998 FIT/FOBT Q 1 year 1998 Flex Sig/CT Colonography Q 5 years 1998 RSV VACCINE (60+ or ) (1 - Risk 50-74 years 1-dose series) 12/31/2003 PNEUMOCOCCAL VACCINE 50+ YEA RS (2 of 2 - PCV) 01/21/2016 01/20/2015 ZOSTER VACCINE (2 of 3) 06/14/2017 04/19/2017 INFLUENZA VACCINE (#1) 2025 , 04/25/2022, 05/26/2021, Additional history exists COVID-19 Vaccine (2024-08 6 season) 2025 05/29/2022, 10/28/2021, 04/08/2021, Additional history exists COLORECTAL SCREENING 08/12/2034 08/12/2024, 02/09/20 21 Colorectal Cancer Screening 08/12/2034 Medical Devices Implanted Type Area Movie Theater Manager Device Identifier Shelf Expiration Date Model / Serial / Lot Plate Plate Left: Clavicle Screw Left: Clavicle Insurance [facility] CHOICE [id number] RX [employer] RX Member Subscriber Plan / Payer (Ef fective for All Dates) Name:Yamil Schneider Relation to Subscriber:Self Name:Yamil Schneider Payer ID:Not on file Type:RX Commercial Address: [address] Advance Directives For more information, please contact: [phone] * Full Code (Latest Code Status on File) Date Activated Date Inactivated Comments 01/06/2017 10:38 AM 01/06/2017 6:15 PM Care Teams Newspaper Illustrator Relationship Specialty Start Date End Date Milad Gong MD [address] [place] [address] PCP - General Internal Medicine 12/23/16
--- OUTSIDE RECORDS SUMMARY | 2025-04-25 02:19 | XMS_ITS | Encounter Summary ---
Author Organization [facility] Address [address] [place] [address] Care Team Providers Care School Speech Therapist Name Role Phone Milad Gong MD Primary Care Provider Unava Milad Curiel MD Unavailable Unavailable Ananda Rhodes MD Unavailable [phone] None, Provider Primary Care Provider Unavaila Rudy Hunter MD Primary Care Provider [phone] Encounter Details Date Type Department Care Team (Late st Contact Info) Description 11/08/2016 Abstract [facility] CONVERSION [address] [place], [place] [id number] , Generic Conversion, Social History Tobacco Use Types Packs/Day Years Used Date Smoking Tobacco: Never Smokeless Tobacco: Never Alcohol Use Standard Drinks/Week Comments Yes 0 (1 standard drink = 0.6 oz pur e alcohol) occ Sex and Gender Information Value Date Recorded Sex Assigned at Male 01/27/2022 7:47 AM CDT Legal Sex Male 10:50 AM VENDOR QUALITY SUPERVISOR Gender Identity Male 01/27/2022 7:47 AM CDT [...] Rule Out 06/29/2022 06/29/2022 06/29/2022 9:51 AM VENDOR QUALITY SUPERVISOR documented as of this encounter Care Teams School Speech Therapist Relationship Specialty Start Date End Date Milad Gong MD PCP - General INTERNAL MEDICINE 12/02/15 12/06/20 None, MD Ciera PCP - General 12/07/20 02/15/21 [place] [address] [place] [address] PCP - General FAMILY PRACTICE 02/16/21 Milad Gong MD 12/02/15 Ananda Rhodes MD [facility]. [address] [address] [facility] Specialist CARDIOVASCULAR DISEASE 12/02/15 documented as of this encounter
--- OUTSIDE RECORDS SUMMARY | 2025-04-25 02:19 | XMS_ITS | Data Portability ---
Author Organization [facility] (11) Address [address] [facility] [address] [place] [address] Assessment No assessment recorded. Plan of Treatment Reminders Order Date Submit Date Provider Last Modified By Organization Details Last Modified Time Details Appointments Ship Supplies 2024 08:20A M Tesson Woods D[facility] Not available Not available Not available Ship Supplies 2024 08:20A M Tesson [facility] Not available Not available Not available Ship Supplies 2024 08:30A M [facility]on [facility] Not available Not available Not available Ship Supplies 2025 08:00A M Tesson [facility] Not available Not available Not available Ship Supplies 2025 08:10A M Tesson Woods [facility] Not available Not available Not available Ship Supplies 2025 08:00A M Tesson Woods [facility] Not available Not available Not available Lab None recorded. Referral None recorded. Procedures None recorded. Surgeries None recorded. Imaging None recorded. Medication Orders None recorded. Patient TargetsNo targets recorded. Patient InstructionsNo instructions recorded. Reason for Referral None Reported. Procedures Surgical History Date Name Laterality Status Provider Name and Address Organization Details Recorded Time 04/24/2023 Sleep Study completed Kurt Anitagalanadeem [facility] 04/25/2023 17:34:17 Imaging Results None recorded. Procedure [...] ICD10 Code Diagnosis IMO Codes Diagnosis Note [id number] [facility] (11) [address] [address] 02/27/2023 16:09:08 02/27/2023 20:07:40 [id number] [facility], [facility] CSI (11) [address] [address] 04/24/2023 12:12:58 04/25/2023 17:17:32 Obstructive sleep apnea of adult 9274674903 103 G47.33 [id number] [facility] (11) [address] [address] 06/08/2023 11:54:52 06/08/2023 12:54:55 Obstructive sleep apnea of adult 5756983937 103 G47.33 [id number] [facility] (11) [address] [address] 07/10/2023 11:52:10 07/10/2023 11:54:24 [id number] [facility] CSI (11) [address] [facility] [address] [place] [address] 01/01/2024 12:58:47 01/02/2024 17:08:34 Obstructive sleep apnea of adult 1557976499 103 G47.33 [id number] [facility] CSI (11) [address] [facility] [address] [place] [address] 01/17/2024 10:02:32 01/17/2024 10:02:52 Obstructive sleep apnea of adult 9006880154 103 G47.33 [id number] [facility] CSI (11) [address] [facility] [address] [place] [address] 02/01/2024 10:21:48 02/01/2024 10:22:15 Obstructive sleep apnea of adult 1699828307 103 G47.33 [id number] [facility] CSI (11) [address] [facility] [address] [place] [address] 03/11/2024 10:52:19 03/11/2024 10:52:29 Obstructive sleep apnea of adult 4630418181 103 G47.33 [id number] [facility] CSI (11) [address] [facility] [address] [place] [address] 04/04/2024 09:28:44 04/05/2024 17:10:38 Obstructive sleep apnea of adult 0286509585 103 G47.33 [id number] [facility] CSI (11) [address] [facility] [address] [place] [address] 05/07/2024 11:22:36 05/07/2024 11:24:15 Obstructive sleep apnea of adult 8830196787 103 G47.33 [id number] [facility] CSI (11) [address] [facility] [address] [place] [address] 06/14/2024 14:50:50 06/17/2024 16:50:26 Obstructive sleep apnea of adult 7446222705 103 G47.33 [id number] [facility] CSI (11) [address] [facility] [address] [place] [address] 07/09/2024 08:59:01 07/09/2024 16:57:32 Obstructive sleep apnea of adult 4021116596 103 G47.33 [id number] [facility], [facility] (49) [address] [place] [address] 08/08/2024 09:23:39 08/09/2024 11:57:47 Obstructive sleep apnea of adult 1787053112 103 G47.33 Health Concerns Section Related Observation LastModified by Organization Detai ls LastModified Time None Recorded Concern Status LastModified by Organization Details LastModified Time None Recorded Advance Directives Directive None Recorded Payers Insurance Date Sequence Insurance Name Policy Number Policy Eng Covered Member ID Eng Member ID Guarantor Name 02/21/2023 1 [facility] [id number] Rylee Lin [id number] Yamil Schneider 04/11/2025 1 [id number] Rylee Lin [id number] Yamil Schneider
--- OUTSIDE RECORDS SUMMARY | 2025-04-25 02:19 | XMS_ITS | Clinical Summary ---
Author Organization [facility] Address [address] [place] [address] Care Team Providers Care Lithographic General Worker Name Role Phone Milad Gong MD Unavailable Unavailable Ananda Rhodes MD Unavailable [phone] Rudy Mcintyre MD Primary Care Provider [phone] Allergies Active Allergy Reactions Criticality Noted Date [...] (08/20/2024): Added automatically from request for surgery [id number] Obstructive sleep apnea on CPAP 12/27/2016 Hypertriglyceridemia 06/01/2011 Overview (08/02/2021): Osteoarthrosis 05/04/2011 Overview (08/02/2021): Asthma Encounters Date Type Department Care Team Description 04/17/2025 Scan HEALTH INFO SRVCS Scanned, Doc Med Group Lab (SCAN) 04/02/2025 11:37 AM CDT - 04/02/2025 11:59 PM CDT 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 Not on file Last Filed Vital Signs Vital Sign Reading Time Taken Comments Blood Pressure 139/79 08/20/2024 10:32 AM MEAT GRADER Pulse 78 08/20/2024 10:32 AM MEAT GRADER Temperature 36.8 C (98.3 F) 08/20/2024 10:32 AM MEAT GRADER Respiratory Rate 16 08/20/2024 10:32 AM MEAT GRADER Oxygen Saturation 94% 08/20/2024 10:32 AM MEAT GRADER Inhaled Oxygen Concentration - - Weight 97.5 kg (215 lb) 08/20/2024 10:32 AM MEAT GRADER Height 177.8 cm (5' 10) 08/20/2024 10:32 AM MEAT GRADER Body Mass Index 30.85 08/20/2024 10:32 AM MEAT GRADER Plan of Treatment Health Maintenance Due Date Last Done Comments Hepatitis C 12/31/1971 DTaP, Tdap and Td Vaccines (1 - Tdap) 1972 RSV Immunization or 60+ Years (1 - Risk 60-74 years 1-dose series) 2013 Pneumococcal Vaccine: 50+ Years (2 of 2 - PCV) 01/21/2016 01/20/2015 Zoster Vaccines (2 of 3) 06/14/2017 04/19/2017 PHQ-2 (Physician [place]) 07/03/2024 COVID-19 Vaccine ( season) 2025 04/21/2024, [...] home upon discharge General No Zeina Linton, tow car driver Procedure Name Priority Date/Time Associated Diagnosis Comments OUTSIDE PT/INR (SCAN ORDER) 04/17/2025 OUTSIDE LAB (SCAN ORDER) 04/17/2025 CT ABD+PEL WWO CON Routine 04/02/2025 12 :20 PM CDT Gross hematuria COLONOSCOPY GENERIC (SCAN ORDER) 02/08/2021 from Last 3 Months or Most Recently Relevant to Health Maintenance Results * OUTSIDE PT/INR (SCAN ORDER) (04/17/2025) 04/17/2025 us [employer] [facility] Scanned SCANNING Final Resu lt * OUTSIDE LAB (SCAN ORDER) (04/17/2025) 04/17/2025 [facility] Scanned SCANNING Final Resu lt * CT ABD+PEL WWO CON (04/02/2025 12:20 [...] 6:31 AM Narrative 04/04/2025 6:40 AM CDT [facility] [address] [place] [address] Examination: CT ABD+PEL WWO CON Exam time: 04/02/2025 12:05 PM INDICATION: Gross hematuria COMPARISON: CT abdomen and pelvis 04/21/2022 TECHNIQUE: Computed tomography of the abdomen and pelvis was obtained before and after the administration of intravenous contrast, 75 mL Isovue-370 via the right antecubital fossa, according to CT urogram protocol without immediate complication. Delayed images were also obtained. No oral contrast was administered. Weight Reducing Technician film of the abdomen as well as [...] Procedure Note Kane Walsh MD - 04/04/2025 [facility] [address] [place] [address] Examination: CT ABD+PEL WWO CON Exam time: 04/02/2025 12:05 PM INDICATION: Gross hematuria COMPARISON: CT abdomen and pelvis 04/21/2022 TECHNIQUE: Computed tomography of the abdomen and pelvis was obtainedbefore and after the administration of intravenous contrast, 75 mLIsovue-370 via the right antecubital fossa, according to CT urogramprotocol without immediate complication. Delayed images were alsoobtained. No oral contrast was administered. Weight Reducing Technician film of the abdomen aswell as additional [...] Most Recently Relevant to Health Maintenance Insurance [employer] Advance Directives * Full Code (Latest Code Status on File) Date Activated Date Inactivated Comments 01/27/2022 6:08 AM 01/31/2022 2:18 PM Care Teams Lithographic General Worker Relationship Specialty [place] [address] [place] [address] PCP - General FAMILY PRACTICE 02/16/21 Milad Gong MD 12/02/15 Ananda Rhodes MD [facility]. [address] [address] [place] Rib Matcher And Fitter CARDIOVASCULAR DISEASE 12/02/15
--- OUTSIDE RECORDS SUMMARY | 2025-04-25 02:19 | XMS_ITS | Encounter Summary ---
Author Organization [facility] Address [address] [place] [address] Care Team Providers Care Software Tester Name Role Phone Milad Gong MD Unavailable Unavailable Ananda Rhodes MD Unavailable [phone] Rudy Mcintyre MD Primary Care Provider [phone] Reason for Visit * Reason Comments Lab (SCAN) Encounter Details Date Type Department Care Team (Latest Contact Info) Description 04/17/2025 Scan HEALTH INFO SRVCS Scanned, Doc Med Group Lab (SCAN) Social History Tobacco Use Types Packs/Day Years Used Date Smoking Tobacco: Never Smokeless Tobacco: Never Alcohol Use Standard Drinks/Week Comments Yes 0 (1 standard drink = 0.6 oz pur e alcohol) occ PHQ-2 Answer Date Recorded Patient Health Questionnaire-2 Score 0 10/07/2022 Sex and Gender Information Value Date Recorded Sex Assigned at Male 01/27/2022 7:47 AM CDT Legal Sex Male 10:50 AM PRODUCT ADVISOR Gender Identity Male 01/27/2022 7:47 AM CDT Sexual Orientation Not on file 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 Answer Date of Assessment Author Status No 01/27/2022 2:01 PM CDT Activ e * Do you have serious difficulty walking or climbing stairs? Answer Date of Assessment Author Status No 01/27/2022 2:01 PM Rita Persaud RN Active * Do you have difficulty dressing or bathing? Answer Date of Assessment Author Status No 01/27/2022 2:01 PM Rita Persaud RN Active * Because of a physical, mental, or emotional condition, do you have difficulty doing errands alone such as visiting a doctor's office or shopping? Answer Date of Assessment Author Status No 01/27/2022 2:01 PM Rita Persaud RN Active documented as of this encounter Mental Status * Because of a physical, mental, or emotional condition, do you have serious difficulty concentrating, remembering, or making decisions? Answer Entry Date Author Status No 01/27/2022 2:01 PM Rita Persaud RN Active documented in this encounter Plan of Treatment Not on file documented as of this encounter Goals Goal Patient Goal Type Associated Problems Recent Progress Patient-Stated? Author Safety Patient/family will have appropriate support at home upon discharge General No Zenia Linton RN documented as of this encounter Procedures Procedure Name Priority Date/Time Associated Diagnosis Comments OUTSIDE PT/INR (SCAN ORDER) 04/17/2025 OUTSIDE LAB (SCAN ORDER) 04/17/2025 documented in this encounter Results * OUTSIDE PT/INR (SCAN ORDER) (04/17/2025) 04/17/2025 us [employer] [facility] Scanned SCANNING Final Resu lt * OUTSIDE LAB (SCAN ORDER) (04/17/2025) 04/17/2025 us [employer] [facility] Scanned SCANNING Final Resu lt documented in this encounter Visit Diagnoses Not on filedocumented in this encounter Additional Health Concerns Assessment Noted Time PHQ-9 Depression Total Score: 0 08/02/19 22 2:10 PM PRODUCT ADVISOR documented as of this encounter Care Teams Software Tester Relationship Specialty [place] [address] [place] [address] PCP - General FAMILY PRACTICE 02/16/21 Milad Gong MD 12/02/15 Ananda Rhodes MD Three [facility]. [address] [address] [place] Retaining Room Cutter CARDIOVASCULAR DISEASE 12/02/15 documented as of this encounter
--- OUTSIDE RECORDS SUMMARY | 2025-04-25 02:19 | XMS_ITS | Clinical Summary ---
Author Organization [facility] Address [address] [place] [address] Care Team Providers Care Four Corner Stayer Machine Operator Name Role Phone Ruyd Mcintyre MD Primary Care Provider [phone] Allergies Active Allergy Reactions Criticality Noted Date [...] Pt states he isn't allergic to hctz Eomlobj-Lsd-Ysn Reductase Inhibitors Muscle pain Medium 06/11/2018 myalgia [...] (02/15/2023): Added automatically from request for surgery [id number] Gastroesophageal reflux disease without esophagi tis 07/05/2019 Overview (02/15/2023): Added automatically from request for surgery [id number] Chest pain 12/27/2016 Obstructive sleep apnea on [...] on file Legal Sex Male 6:46 AM BLUEPRINT TRACER Gender Identity Not on file Sexual Orientation [...] AA) Screen Completed 04/21/2022, 03/28/2022, 12/07/2020 Insurance [facility] Care Teams [place] Stayer Machine Operator Relationship Specialty [place] [address] [place] [address] PCP - General Family Practice 02/15/23
--- NOTE | 2025-04-25 06:28 | WPDHPUPDATE1 ---
History and Physical Update Update Date/Time: 04/25/25 06:28 History and Physical has been reviewed, including an updated exam of the patient. There are NO changes in the patient's condition. Risks, benefits, and alternatives have been discussed and questions answered. Patient agrees to proceed with procedure.
[2025-04-25] MEDS: LACTATED RINGERS 1,000 ML 30 ML IV CONT (11:15)
--- NOTE | 2025-04-25 11:15 | WPDANESEPPF ---
Anes - Initial Pre Proc Eval Procedure: Operation Date: 04/25/25 12:30 Proposed Procedures p Left Extracorporeal Shock Wave Lithotripsy - Sha Trivedi MD Date/Time: 04/25/25 11:15 Surgeon: Sha Trivedi MD Pre Op Diagnosis: left ureteral stone Patient Data Age: 69 Gender: M Height: 1.78 m Weight: 94.3 kg Last Vital Signs Temp 36.5 C 04/25/25 11:12 Pulse 71 04/25/25 11:12 BP 128/80 04/25/25 11:12 Pulse Ox 98 04/25/25 11:12 O2 Del Method Room Air 04/25/25 11:12 Allergies Allergy/AdvReac Type Severity Reaction Status Date / Time OSWALDO Inhibitors Allergy Severe Other Verified 04/25/25 11:09 meperidine Allergy Unknown Anaphylactic Verified 04/25/25 11:09 Shock acetaminophen (From Allergy Itching Verified 04/25/25 11:11 Tylenol-Codeine #3) codeine (From Allergy Itching Verified 04/25/25 11:11 Tylenol-Codeine #3) Duaxxsy-QOS-TrL Reductase AdvReac Intermediate Muscle Pain Verified 04/25/25 11:09 Inhibitor (Kehtvfr-Lwx-Zup Reductase Inhibitor) Home Medications ?Medication ?Instructions ?Recorded ?Confirmed ?Type albuterol sulfate 90 mcg/actuation See Rx Instructions .Route 06/08/20 04/16/25 Rx aerosol inhaler (Ventolin HFA) .COMPLEX 90 days #54 grams montelukast 10 mg tablet 10 mg PO QPM 90 days #90 tabs 06/08/20 04/16/25 Rx ondansetron 4 mg disintegrating 4 mg translingual TID PRN nausea 06/08/20 04/16/25 Rx tablet and vomiting #360 tabs quinapril 10 mg tablet 10 mg PO DAILY 90 days #90 tabs 06/08/20 04/16/25 Rx ezetimibe 10 mg tablet 10 mg PO DAILY 90 days #90 tabs 09/30/20 04/16/25 Rx budesonide-formoterol HFA 80 2 puff inhalation BID PRN Allergy 12/07/20 04/16/25 History mcg-4.5 mcg/actuation aerosol Symptoms inhaler finasteride 5 mg tablet 5 mg PO HS 01/11/21 04/16/25 History omeprazole 40 mg capsule,delayed 40 mg PO HS 01/11/21 04/16/25 History release tamsulosin 0.4 mg capsule 0.4 mg PO HS 01/11/21 04/16/25 History acetaminophen 500 mg capsule 1,000 mg (2 x 500 mg) PO Q6H PRN 12/02/23 04/16/25 Rx pain #30 caps ciprofloxacin HCl 500 mg tablet 500 mg PO Q12H 7 days #14 tabs 12/02/23 04/16/25 Rx ibuprofen 600 mg tablet 600 mg PO TID PRN pain #30 tabs 12/02/23 04/16/25 Rx metronidazole 500 mg tablet 500 mg PO .q 6H 7 days #28 tabs 12/02/23 04/16/25 Rx amlodipine 10 mg tablet 10 mg PO DAILY 04/16/25 04/16/25 History cetirizine 10 mg capsule (All Day 10 mg PO DAILY PRN allergy symptoms 04/16/25 04/16/25 History Allergy (cetirizine)) gemfibrozil 600 mg tablet 600 mg PO BID 04/16/25 04/16/25 History pantoprazole 40 mg tablet,delayed 40 mg PO DAILY 04/16/25 04/16/25 History release Patient hx anesthesia problems: none Family hx anesthesia problems: none Results Review: All pre-operative results and documents have been reviewed as part of the pre-operative evaluation. [facility] Past Medical History Medical History (Updated 04/24/25 @ 14:17 by Cedric Burris DO) Asthma History of diverticulitis ~3 flares Overweight (BMI 25.0-29.9) LYDIA (obstructive sleep apnea) Calculus of distal ureter Arthritis of right shoulder region Benign prostatic hyperplasia with urinary retention Milton's esophagus with dysplasia, unspecified Chronic allergic rhinitis Complex regional pain syndrome type II of right lower limb Essential (primary) hypertension History of asthma History of pulmonary embolism Hypertensive heart disease without heart failure Metabolic syndrome Mild intermittent asthma without complication Mixed hyperlipidemia Intolerant of statin PE (pulmonary thromboembolism) Postop PE after bilateral inguinal hernia repair he was on anticoagulation for 6 months. Saddle PE Surgical History Surgical History History of colonoscopy last approx Hx laparoscopic cholecystectomy 01/11/21 H/O medial meniscus repair of left knee H/O medial meniscus repair of right knee H/O shoulder surgery Left clavicle surgery. And right rotator cuff repair H/O hernia repair Bilateral History of tonsillectomy S/P medial meniscal repair History of Rio fundoplication Secondary to Milton's esophagus Family History Family History Father Hypertension Family history of cardiovascular disease Sibling Hypertension Family history of diabetes mellitus in first degree relative Diabetes mellitus Grandparent Carcinoma of colon Family history of malignant neoplasm Mother Family history of elevated blood lipids Family history of chronic obstructive pulmonary disease Other Family history of allergic disorder Social History Social History Social History: 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 The patient has 1 son. The patient used to smoke cigars but quit many years ago. No alcohol marijuana or illicit drugs. The patient desires to be a full code. Smoking status: Former smoker Tobacco type: cigars Second hand tobacco smoke exposure: No Smoking end date: 07/03/13 Alcohol intake: never Drinks per week: 1 Substance use: never Living arrangements: with family Spiritual care concerns: No Anes - Eval Final PreProcedure Day of Procedure 04/25/25 11:15 Patient weight: overweight Heart: regular rate and rhythm Lungs: clear to auscultation Airway: Mallampati scale class II Neurological: alert and oriented Last oral intake: >/= 8 hours ASA classification: III Emergent: no Anesthetic plan: proceed Anesthesia type and monitoring: general LMA and standard monitoring Results Review: All pre-operative results and documents have been reviewed as part of the pre-operative evaluation. Informed Consent: The patient's anesthetic plan and its attendant risks and benefits were discussed with the patient/family/POA. Questions were solicited and answers provided to the satisfaction of the patient/family/POA.
[2025-04-25] MEDS: ceFAZolin 2 GM in SODIUM CHLORIDE 0.9% IV 50 ML 100 ML IVPB (11:43)
--- NOTE | 2025-04-25 12:10 | W.PM.PROC2 ---
Procedure Note - Detailed Date of Procedure 04/25/25 Pre-op Diagnosis Left renal stone Post-op Diagnosis Same Procedure Performed Cystoscopy, left retrograde pyelography, left ESWL Surgeon Sha Trivedi MD Anesthesia General Description of Procedure The patient was brought to the operative suite where he was placed in the supine position on the Dornier lithotripter table. is 1 cm left renal pelvic stone was difficult to visualize partly ( likely ) due to poor calcification and father because of overlying gas. I opted to perform cystoscopy with retrograde pyelography. Flexible cystoscopy was undertaken with a 16F flexible cystoscopy. There were no urethral strictures. The prostatic urethra estimated length was 2.0cm. There was mildobstruction of the prostatic urethra . The bladder mucosa was normal and there was a single, orthotopic ureteral orifice bilaterally. A 0.035 glidewire was advanced into the left renal pelvis under fluoroscopy. Left retrograde pyelography was obtained with a [place] catheter. A clear filling defect is seen his left pole, consistent with his 1 cm stone. A total of 2500 shocks were delivered at a power setting of 4. There appeared to be good fragmentation of the stone. The patient tolerated the procedure well and was taken to the recovery room in good condition. Pathology None sent Complications No immediate complications Condition Stable Disposition PACU
== END 2025-04-25 14:14 | disposition home or self-care (01) ==
PROVIDERS: PCP Family Medicine; Visit Provider Urology
PROC: (CPT 50590; principal; 2025-04-25 12:30)
DX: N20.0 Calculus of kidney (principal); N40.1 Benign prostatic hyperplasia with lower urinary tract symptoms; E29.1 Testicular hypofunction; I25.10 Atherosclerotic heart disease of native coronary artery without angina pectoris; K21.9 Gastro-esophageal reflux disease without esophagitis; I11.9 Hypertensive heart disease without heart failure; J45.909 Unspecified asthma, uncomplicated; G47.33 Obstructive sleep apnea (adult) (pediatric); M19.011 Primary osteoarthritis, right shoulder; G57.71 Causalgia of right lower limb; Z79.51 Long term (current) use of inhaled steroids; Z79.1 Long term (current) use of non-steroidal anti-inflammatories (NSAID); Z98.890 Other specified postprocedural states; Z90.49 Acquired absence of other specified parts of digestive tract; Z87.891 Personal history of nicotine dependence; Z86.711 Personal history of pulmonary embolism; Z87.19 Personal history of other diseases of the digestive system; Z80.0 Family history of malignant neoplasm of digestive organs; Z82.49 Family history of ischemic heart disease and other diseases of the circulatory system
CPT/HCPCS: 52005; 50590; 74018; J0690; C1758; C1769; J1885; J2003; J2704; J7120; Q9966

== ENCOUNTER 2025-05-06 14:21 | Outpatient (CLI) | payer OTHER, SELFPAY ==
--- NOTE | ~2025-05-06 | XR_ITS ---
XR abdomen/kub 1V 05/06/2025 14:43 INDICATION: Renal stone TECHNIQUE: KUB COMPARISON: None FINDINGS: Bowel gas pattern is normal. There is no evidence of free air, mass, organomegaly, ascites or obstruction. No abnormal calculi are seen. The bones appear intact. There is osteoarthritis of the hips. There are pelvic phleboliths. IMPRESSION: 1: No acute abdominal abnormality identified. Reviewed, dictated and finalized at location O. SINE MACHINE TENDER
--- OUTSIDE RECORDS SUMMARY | 2025-05-06 15:48 | XMS_ITS | Encounter Summary ---
Author Organization [facility] Address [address] [place] [address] Care Team Providers Care Floorhand Name Role Phone Milad Gong MD Unavailable Unavailable Ananda Rhodes MD Unavailable [phone] Rudy Mcintyre MD Primary Care Provider [phone] Reason for Visit * Reason Comments Image (SCAN) Procedure (SCAN) Encounter Details Date Type Department Care Team (Late Contact Info) Description 04/25/2025 Scan HEALTH INFO SRVCS Scanned, Doc Med Group Image (SCAN); Procedure (SCAN) Social History Tobacco Use Types Packs/Day Years Used Date Smoking Tobacco: Never Smokeless Tobacco: Never Alcohol Use Standard Drinks/Week Comments Yes 0 (1 standard drink = 0.6 oz pur e alcohol) occ PHQ-2 Answer Date Recorded Patient Health Questionnaire-2 Score 0 10/07/2022 Sex and Gender Information Value Date Recorded Sex Assigned at Male 01/27/2022 7:47 AM CDT 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 Gender Identity Male 01/27/2022 7:47 AM CDT [...] at home upon discharge General No Zeina Linton RN documented as of this encounter Procedures Procedure Name Priority Date/Time Associated Diagnosis Comments IMAGE GENERIC 04/25/2025 PROCEDURE GENERIC (SCAN ORDER) 04/25/2025 documented in this encounter Results * PROCEDURE GENERIC (SCAN ORDER) (04/25/2025) 04/25/2025 us [employer] [facility] Scanned SCANNING Final Resu lt * IMAGE GENERIC (04/25/2025) Anatomical Region Laterality Modality Other 04/25/2025 us [employer] [facility] Scanned SCANNING Final Resu lt documented in this encounter Visit Diagnoses Not on filedocumented in this encounter Additional Health Concerns Assessment Noted Time PHQ-9 Depression Total Score: 0 08/02/19 22 2:10 PM RESEARCH ASSISTANT documented as of this encounter Care Teams Floorhand Relationship Specialty [place] [address] [place] [address] PCP - General FAMILY PRACTICE 02/16/21 Milad Gong MD 12/02/15 Ananda Rhodes MD Three [facility]. [address] [address] [place] [employer] Expert CARDIOVASCULAR DISEASE 12/02/15 documented as of this encounter
--- OUTSIDE RECORDS SUMMARY | 2025-05-06 15:48 | XMS_ITS | Clinical Summary ---
Author Organization [facility] Address [address] [facility] [place] [address] Phone Care Team Providers Care Telephone Interceptor Operator Name Role Phone Milad Gong MD Primary Care Provider [phone] Allergies Active Allergy Reactions Criticality Noted Date [...] Abstract 02/11/2025 11:15 AM CDT Office Visit [facility] [address] [place] [address] Eliezer Guardado MD Coronary artery disease involving [place] coronary artery of [place] heart without angina pectoris (Primary Dx); Mixed hyperlipidemia; Essential hypertension 02/11/2025 Telephone [facility] [address] [place] [address] Eliezer Guardado MD lipid order [...] Description 02/10/2026 11:15 AM CDT Office Visit [facility] [address] [place] [address] Eliezer Guardado MD [address] [facility] [address] [place] [address] Health Maintenance Due Date Last [...] Screening 08/12/2034 Medical Devices Implanted Type Area Prepress Supervisor Device Identifier Shelf Expiration Date Model / Serial / Lot Plate Plate Left: Clavicle Screw Left: Clavicle Insurance [facility] CHOICE [id number] RX [employer] RX Member Subscriber Plan / Payer (Ef fective for All Dates) Name:Yamil Schneider Relation to Subscriber:Self Name:Yamil Schneider Payer ID:Not on file Type:RX Commercial Address: [place] [address] Advance Directives For more information, please contact: [phone] * Full Code (Latest Code Status on File) Date Activated Date Inactivated Comments 01/06/2017 10:38 AM 01/06/2017 6:15 PM Care Teams Telephone Interceptor Operator Relationship Specialty Start Date End Date Milad Gong MD [address] [place] [address] PCP - General Internal Medicine 12/23/16
--- OUTSIDE RECORDS SUMMARY | 2025-05-06 15:48 | XMS_ITS | Clinical Summary ---
Author Organization [facility] Address [address] [place] [address] Care Team Providers Care Business Information Analyst Name Role Phone Rudy Mcintyre MD Primary Care Provider [phone] Allergies Active Allergy Reactions Criticality Noted Date [...] Pt states he isn't allergic to hctz Xjbbblw-Cvw-Dcu Reductase Inhibitors Muscle pain Medium 06/11/2018 myalgia [...] (02/15/2023): Added automatically from request for surgery [id number] Gastroesophageal reflux disease without esophagi tis 07/05/2019 Overview (02/15/2023): Added automatically from request for surgery [id number] Chest pain 12/27/2016 Obstructive sleep apnea on [...] on file 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
--- OUTSIDE RECORDS SUMMARY | 2025-05-06 15:48 | XMS_ITS | Clinical Summary ---
Author Organization [facility] Address [address] [place] [address] Care Team Providers Care Teacher Resource Name Role Phone Milad Gong MD Unavailable Unavailable Ananda Rhodes MD Unavailable [phone] Rudy Mcintyre MD Primary Care Provider [phone] Allergies Active Allergy Reactions Criticality Noted Date [...] (08/20/2024): Added automatically from request for surgery [id number] Obstructive sleep apnea on CPAP 12/27/2016 Hypertriglyceridemia 06/01/2011 Overview (08/02/2021): Osteoarthrosis 05/04/2011 Overview (08/02/2021): Asthma Encounters Date Type Department Care Team Description 04/25/2025 Scan [facility] Scanned, [facility] Image (SCAN); Procedure (SCAN) 04/17/2025 Scan [facility] Scanned, [facility] Lab (SCAN) 04/02/2025 11:37 AM CDT - 04/02/2025 11:59 PM CDT 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 Not on file Last Filed Vital Signs Vital Sign Reading Time Taken Comments Blood Pressure 139/79 08/20/2024 10:32 AM UPHOLSTERER ASSEMBLY LINE Pulse 78 08/20/2024 10:32 AM UPHOLSTERER ASSEMBLY LINE Temperature 36.8 C (98.3 F) 08/20/2024 10:32 AM UPHOLSTERER ASSEMBLY LINE Respiratory Rate 16 08/20/2024 10:32 AM UPHOLSTERER ASSEMBLY LINE Oxygen Saturation 94% 08/20/2024 10:32 AM UPHOLSTERER ASSEMBLY LINE Inhaled Oxygen Concentration - - Weight 97.5 kg (215 lb) 08/20/2024 10:32 AM UPHOLSTERER ASSEMBLY LINE Height 177.8 cm (5' 10) 08/20/2024 10:32 AM UPHOLSTERER ASSEMBLY LINE Body Mass Index 30.85 08/20/2024 10:32 AM UPHOLSTERER ASSEMBLY LINE Plan of Treatment Health Maintenance Due Date Last Done Comments Hepatitis C 12/31/1971 DTaP, Tdap and Td Vaccines (1 - Tdap) 1972 RSV Immunization or 60+ Years (1 - Risk 60-74 years 1-dose series) 2013 Pneumococcal Vaccine: 50+ Years (2 of 2 - PCV) 01/21/2016 01/20/2015 Zoster Vaccines (2 of 3) 06/14/2017 04/19/2017 PHQ-2 (Physician Artie) 07/03/2024 COVID-19 Vaccine ( season) 2025 04/21/2024, [...] support at home upon discharge General No Teri Lintonty L, agricultural economics teacher Procedure Name Priority Date/Time Associated Diagnosis Comments IMAGE GENERIC 04/25/2025 PROCEDURE GENERIC (SCAN ORDER) 04/25/2025 OUTSIDE PT/INR (SCAN ORDER) 04/17/2025 OUTSIDE LAB (SCAN ORDER) 04/17/2025 CT ABD+PEL WWO CON Routine 04/02/2025 12 :20 PM CDT Gross hematuria COLONOSCOPY GENERIC (SCAN ORDER) 02/08/2021 from Last 3 Months or Most Recently Relevant to Health Maintenance Results * IMAGE GENERIC (04/25/2025) Anatomical Region Laterality Modality Other 04/25/2025 [facility] Scanned SCANNING Final Resu lt * PROCEDURE GENERIC (SCAN ORDER) (04/25/2025) 04/25/2025 [facility] Scanned SCANNING Final Resu lt * OUTSIDE PT/INR (SCAN ORDER) (04/17/2025) 04/17/2025 [facility] Scanned SCANNING Final Resu lt * OUTSIDE LAB (SCAN ORDER) (04/17/2025) 04/17/2025 [facility] Scanned SCANNING Final Resu lt [...] 6:31 AM Narrative 04/04/2025 6:40 AM CDT [facility] [address] [facility] [place] [address] Examination: CT ABD+PEL WWO CON Exam time: 04/02/2025 12:05 PM INDICATION: Gross hematuria COMPARISON: CT abdomen and pelvis 04/21/2022 TECHNIQUE: Computed tomography of the abdomen and pelvis was obtained before and after the administration of intravenous contrast, 75 mL Isovue-370 via the right antecubital fossa, according to CT urogram protocol without immediate complication. Delayed images were also obtained. No oral contrast was administered. Ceramic Worker film of the abdomen as well as [...] Procedure Note Kane Walsh MD - 04/04/2025 [facility] [address] [place] [address] Examination: CT ABD+PEL WWO CON Exam time: 04/02/2025 12:05 PM INDICATION: Gross hematuria COMPARISON: CT abdomen and pelvis 04/21/2022 TECHNIQUE: Computed tomography of the abdomen and pelvis was obtainedbefore and after the administration of intravenous contrast, 75 mLIsovue-370 via the right antecubital fossa, according to CT urogramprotocol without immediate complication. Delayed images were alsoobtained. No oral contrast was administered. Ceramic Worker film of the abdomen aswell as additional [...] 6:08 AM 01/31/2022 2:18 PM Care Teams Teacher Resource Relationship Specialty [place] [address] [place] [address] PCP - General FAMILY PRACTICE 02/16/21 Milad Gong MD 12/02/15 Ananda Rhodes MD [facility]. [address] [address] [place] CARDIOVASCULAR DISEASE 12/02/15
--- OUTSIDE RECORDS SUMMARY | 2025-05-06 15:48 | XMS_ITS | Encounter Summary ---
Author Organization [facility] Address [address] [place] [address] Care Team Providers Care Bread Pan Greaser Name Role Phone Milad Gong MD Primary Care Provider UnaMilad Phoenix MD Unavailable Unavailable Ananda Rhodes MD Unavailable [phone] None, Provider Primary Care Provider Unavaila Rudy Hunter MD Primary Care Provider [phone] Encounter Details Date Type Department Care Team (Late st Contact Info) Description 05/31/2016 Abstract [facility] AT [address] [address] Gustavo Andrews MA Social History Tobacco Use Types Packs/Day Years Used Date Smoking Tobacco: Never Assessed Sex and Gender Information Value Date Recorded Sex Assigned at Male 01/27/2022 7:47 AM CDT 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 Gender Identity Male 01/27/2022 7:47 AM CDT [...] Result - Final * MAGNESIUM (05/06/2016) Pathologist [facility] [place] MAGNESIUM 2.2 05/06/2016 us Doc [facility]ORAT[facility] Final Result * ALT/SGPT (05/06/2016) ALT 24 05/06/2016 us Doc [facility] Final Result * AST/SGOT (05/06/2016) Pathologist [facility] AST 24 05/06/2016 us Doc [facility] Final Result * VITAMIN D, 25 OH (05/06/2016) Pathologist [facility] [place] VITAMIN D 25 HYDROXY S/P/B 29.5 05/06/2016 us Doc [facility] Final Result * PROSTATE SPECIFIC ANTIGEN,TOTAL (05/06/2016) Pathologist [facility] [place] PSA 1.3 05/06/2016 us Doc [facility] Final Result * THYROXINE, FREE (FT4) (05/06/2016) Pathologist [facility] [place] FREE T4 0.86 05/06/2016 us Doc [facility] Final Result * THYROID STIM HORMONE, TSH (05/06/2016) Pathologist [facility] [place] TSH 1.640 05/06/2016 us Doc [facility] Final Result * HEMOGLOBIN, GLYCATED (05/06/2016) HGB A1C 5.7 05/06/2016 us Doc [facility] Final Result * FOLATE (OUTSIDE LAB) (05/06/2016) FOLATE 11.6 05/06/2016 us Doc [facility] Abstract LAB-OUTSIDE/ABSTRACTED Final Result * VITAMIN B-12 (05/06/2016) VITAMIN B12 S/P/B 412 05/06/2016 us Doc [facility] Final Result * LIPID PANEL (05/06/2016) Pathologist [facility] [place] CHOLESTEROL 214 HDL 32 TRIGLYCERIDES 260 LDL [...] Rule Out 06/29/2022 06/29/2022 06/29/2022 9:51 AM PAPER INSPECTOR documented as of this encounter Care Teams Bread Pan Greaser Relationship Specialty Start Date End Date Milad Gong MD PCP - General INTERNAL MEDICINE 12/02/15 12/06/20 Ciera Prince MD PCP - General 12/07/20 02/15/21 [place] [address] [place] [address] PCP - General FAMILY PRACTICE 02/16/21 Milad Gong MD 12/02/15 Ananda Rhodes MD [facility]. [address] [address] [place] [employer] Chief CARDIOVASCULAR DISEASE 12/02/15 documented as of this encounter
--- OUTSIDE RECORDS SUMMARY | 2025-05-06 15:48 | XMS_ITS | Data Portability ---
Author Organization [facility] ([facility] Address [address] [facility] [address] [place] [address] Assessment No assessment recorded. Plan of Treatment Reminders Order Date Submit Date Provider Last Modified By Organization Details Last Modified Time Details Appointments [employer] 2024 08:20A M [facility] Not available Not available Not available [employer] 2024 08:30A M [facility] Not available Not available Not available [employer] 2025 08:00A M [facility] Not available Not available Not available [employer] 2025 08:10A M [facility] Not available Not available Not available [employer] 2025 08:00A M [facility] Not available Not available Not available Lab None recorded. Referral None recorded. Procedures None recorded. Surgeries None recorded. Imaging None recorded. Medication Orders None recorded. Patient TargetsNo targets recorded. Patient InstructionsNo instructions recorded. Reason for Referral None Reported. Procedures Surgical History Date Name Laterality Status Provider Name and Address Organization Details Recorded Time 04/24/2023 Sleep Study completed Kurt Duke [facility] 04/25/2023 17:34:17 Imaging Results None recorded. Procedure Notes None recorded. Medical Equipment None Reported. Allergies Allergen ID Allergen Name Allergen Category Reaction Reaction Severity Criticality Documentation Date Start Date Code Code System Note Provider Name and Address Organization Details Recorded Time 48930 Product containin g angiotens in-conver ting enzyme inhibitor (product) medicatio n angioedem a Not available high 04/28/20252021 55694 009 SNOMED Not Available gonzález - External Data Service - prod 02:49:22 30449 atorvasta tin medicatio n myalgias (muscle pain) Not available low 04/28/20252021 05882 RxNorm Not Available [facility] [employer] - prod 5 02:49:22 45071 meperidin e medicatio n anaphylax is Not available high 04/28/20252016 6754 RxNorm Not Available [facility] [employer] - prod 5 02:49:22 74591 codeine medicatio n vomiting Not available low 04/28/20252015 2670 RxNorm ONLY TYLEN OL 3 CAUSE S A PROBL EM (NAUS EA & VOMIT ING)- CAN TAKE TYLEN OL AND CODEI NE IN COUGH SYRUP AND IS OK Not Available [facility] - prod 5 02:50:55 05266 mold extract environme nt cough dyspnea Not available Not available high 04/28/20252021 84291 8 RxNorm Camilla ers his asthm a Not Available [facility] [employer] - prod 02:50:55 15661 Product containin g 3-hydroxy -3-methyl glutaryl- coenzyme A reductase inhibitor (product) medicatio n myalgias (muscle pain) Not available low 04/28/20252020 54281 009 SNOMED Not Available [facility] [employer] - prod 5 02:50:55 79644 meperidin e hydrochlo ride medicatio n Not available Not available Not available 04/28/20252017 05201 5 RxNorm Not Available [facility] [employer] - prod 02:51:05 Medications Name Sig Start Date Stop Date [...] active Not Available Not Available Not Available ketorolac 10 mg tablet TAKE 1 TABLET BY MOUTH EVERY 6 HOURS FOR 5 DAYS active Not Available Not Available No t Available tamsulosin 0.4 mg capsule active Not [...] ICD10 Code Diagnosis IMO Codes Diagnosis Note [id number] [facility] (11) [address] [address] 02/27/2023 16:09:08 02/27/2023 20:07:40 [id number] [facility], [facility] CSI (11) [address] [place] [address] 04/24/2023 12:12:58 04/25/2023 17:17:32 Obstructive sleep apnea of adult 2148635860 103 G47.33 [id number] [facility] (11) [address] [place] [address] 06/08/2023 11:54:52 06/08/2023 12:54:55 Obstructive sleep apnea of adult 2237233401 103 G47.33 [id number] [facility] (11) [address] [place] [address] 07/10/2023 11:52:10 07/10/2023 11:54:24 [id number] [facility] [place], [facility] CSI (11) [address] [facility] [address] [place] [address] 01/01/2024 12:58:47 01/02/2024 17:08:34 Obstructive sleep apnea of adult [id number] 103 G47.33 [id number] [facility] [place], [facility] CSI (11) [address] [facility] [address] [place] [address] 01/17/2024 10:02:32 01/17/2024 10:02:52 Obstructive sleep apnea of adult 3603866354 103 G47.33 [id number] [facility] CSI (11) [address] [facility] [address] [place] [address] 02/01/2024 10:21:48 02/01/2024 10:22:15 Obstructive sleep apnea of adult 2879791711 103 G47.33 [id number] [facility] [place], [facility] CSI (11) [address] [facility] [address] [place] [address] 03/11/2024 10:52:19 03/11/2024 10:52:29 Obstructive sleep apnea of adult 6627916214 103 G47.33 [id number] [facility] [place], [facility] CSI (11) [address] [address] 04/04/2024 09:28:44 04/05/2024 17:10:38 Obstructive sleep apnea of adult 5288228394 103 G47.33 [id number] [facility] [place], [facility] CSI (11) [address] [facility] [address] [place] [address] 05/07/2024 11:22:36 05/07/2024 11:24:15 Obstructive sleep apnea of adult 5830447993 103 G47.33 [id number] [facility] [place], [facility] CSI (11) [address] [facility] [address] [place] [address] 06/14/2024 14:50:50 06/17/2024 16:50:26 Obstructive sleep apnea of adult 9441427987 103 G47.33 [id number] [facility] [place], [facility] CSI (11) [address] [facility] [address] [place] [address] 07/09/2024 08:59:01 07/09/2024 16:57:32 Obstructive sleep apnea of adult 3814879410 103 G47.33 [id number] [facility] [place], [facility] (61) [address] [place] [address] 08/08/2024 09:23:39 08/09/2024 11:57:47 Obstructive sleep apnea of adult 8141444180 103 G47.33 Health Concerns Section Related Observation LastModified by Organization Detai ls LastModified Time None Recorded Concern Status LastModified by Organization Details LastModified Time None Recorded Advance Directives Directive None Recorded Payers Insurance Date Sequence Insurance Name Policy Number Policy Eng Covered Member ID Eng Member ID Guarantor Name 02/21/2023 1 [facility] [id number] Rylee Lin [id number] Yamil Schneider 04/25/2025 1 [employer] [id number] Rylee Lin [id number] Yamil Schneider
--- OUTSIDE RECORDS SUMMARY | 2025-05-06 15:48 | XMS_ITS | Encounter Summary ---
Author Organization [facility] Address [address] [place] [address] Care Team Providers Care Guest Specialist Name Role Phone Milad Gong MD Primary Care Provider Unava Milad Curiel MD Unavailable Unavailable Ananda Rhodes MD Unavailable [phone] None, Provider Primary Care Provider Unavaila Rudy Hunter MD Primary Care Provider [phone] Encounter Details Date Type Department Care Team (Late st Contact Info) Description 11/08/2016 [facility] [address] [place], [place] [id number] , Generic Conversion, Social History Tobacco Use Types Packs/Day Years Used Date Smoking Tobacco: Never Smokeless Tobacco: Never Alcohol Use Standard Drinks/Week Comments Yes 0 (1 standard drink = 0.6 oz pur e alcohol) occ Sex and Gender Information Value Date Recorded Sex Assigned at Male 01/27/2022 7:47 AM CDT Legal Sex Male 10:50 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 [address] [address] [place] Preparation Room Worker CARDIOVASCULAR DISEASE 12/02/15 documented as of this encounter
== END 2025-05-06 14:22 | disposition home or self-care (01) ==
PROVIDERS: PCP Family Medicine; Visit Provider Urology
DX: N20.0 Calculus of kidney (principal)
CPT/HCPCS: 74018